=== PATIENT | male | born 1935 | race Caucasian/White ===

== ENCOUNTER 2016-08-04 06:14 | Observation (INO) ==
[2016-08-04] MEDS ORDERED: 0.9 % Sodium Chloride 1,000 ML IVC ONE (06:32)
--- NOTE | 2016-08-04 06:38 | Emergency Department Note ---
Disposition Clinical Impression: GI bleed Qualifiers: GI bleed type/associated pathology: unspecified gastrointestinal hemorrhage type Qualified Code(s): K92.2 - Gastrointestinal hemorrhage, unspecified Disposition: Admitted As Inpatient Condition: Good Time of Disposition: 11:15 General Adult HPI - General Chief complaint: ED GI Bleed Stated complaint: gi bleed Time Seen by Provider: 08/04/16 06:24 Source: patient, family Mode of arrival: ambulatory Limitations: no limitations Nursing Notes Reviewed: Yes Vital Signs Reviewed: Yes - History of Present Illness HPI Narrative: Patient is a 80-year-old male that arrives via squad from home with complaints of a bloody bowel movement followed by a bloody emesis approximately 2 hours prior to his arrival. He noticed his bowel movement was loose, and he describes the blood as well. He states he has had bright red blood per rectum in the past and this had not appear different. He mentioned his emesis also had a dark brown bloody appearance to it as well. He describes not feeling well prior to going to bed, and throughout the night. He also has some mild left lower quadrant tenderness which he started throughout the night as well. He mentions the had recently discontinued his warfarin due to an upcoming procedure on his prostate next week. Pt does mentioin h/o of previous GI bleed that was diagnosed as diverticulosis. He denies any melena, lightheadedness, chest pain, shortness of breath, recent travel, recent illness Pain Scale: 1 - Related Data Home Medications Medication Instructions Recorded Confirmed Digoxin [Lanoxin] 0.125 mg PO DAILY 04/23/15 08/04/16 Diltiazem HCl [Diltiazem ER] 180 mg PO BID 04/23/15 08/04/16 Ferrous Sulfate 325 mg PO BID 04/23/15 08/04/16 Finasteride [Proscar] 5 mg PO QAM 04/23/15 08/04/16 Furosemide [Lasix] 40 mg PO QAM 04/23/15 08/04/16 Simvastatin [Zocor] 20 mg PO QPM 04/23/15 08/04/16 Warfarin [Coumadin] 5 mg PO Q48H 04/23/15 08/04/16 Ascorbate Calcium [Vitamin C] 500 mg PO DAILY 12/04/15 08/04/16 Metoprolol [Lopressor] 50 mg PO BID 12/04/15 08/04/16 Multivit-Min/FA/Lycopen/Lutein 1 tab PO DAILY 12/04/15 08/04/16 [Adults 50+ Multivitamin Tablet] Vitamin E 1,000 unit PO DAILY 12/04/15 08/04/16 Warfarin [Coumadin] 7.5 mg PO Q48H 12/04/15 08/04/16 Losartan [Cozaar] 50 mg PO BID 08/04/16 08/04/16 hydrALAZINE [HydrALAZINE] 50 mg PO Q8HR 08/04/16 08/04/16 Allergies Allergy/AdvReac Type Severity Reaction Status Date / Time acetaminophen [From Vicodin] Allergy See Verified 08/04/16 06:16 Comments hydrocodone [From Vicodin] Allergy Rash Verified 08/04/16 06:16 macadamia nut oil Allergy Anaphylaxis Verified 08/04/16 06:16 All systems ED: reviewed and negative except as stated. Constitutional: Denies: fever, chills Eyes: Denies: vision change ENT ED: Denies: throat pain Cardiovascular: Denies: chest pain, palpitations, dyspnea on exertion Respiratory: Denies: cough, dyspnea, wheezes Gastrointestinal: Reports: as per HPI. Denies: melena Genitourinary: Denies: dysuria Musculoskeletal: Denies: back pain Integumentary: Denies: rash Neurological: Denies: headache Endocrine: Denies: fatigue Hematological/Lymphatic: Reports: as per HPI. Denies: lymphadenopathy Allergic/Immunologic: Denies: facial swelling Past Medical History - Past Medical History Medical history: Reports: atrial fibrillation, hypertension, myocardial infarction Surgical history: Reports: other Psychiatric history: Reports: no psych history - Social History Smoking Status: Never smoker Smokeless Tobacco Status: No Alcohol use: Reports: none Drug use: Reports: none Physical Exam - General Limitations: no limitations General appearance: alert, in no apparent distress - Head Head exam: normocephalic - Eye Eye exam: Present: EOMI. Absent: conjunctival injection - ENT ENT exam: mucous membranes moist - Neck Neck exam: Present: full ROM - Chest Chest inspection: Present: normal inspection, symmetric chest wall rise - Respiratory Respiratory exam: Present: normal lung sounds bilaterally. Absent: respiratory distress - Cardiovascular Cardiovascular exam: Present: tachycardia - Abdominal Exam Abdominal exam: Present: soft, tenderness Abdominal tenderness: Present: LLQ, mild - Extremities Exam Extremities exam: Present: normal inspection, full ROM, normal capillary refill - Neurological Exam Neurological exam: Present: alert, oriented X3 - Psychiatric Psychiatric exam: Present: normal affect, normal mood - Skin Skin exam: Present: warm, dry, intact, normal color, diaphoresis. Absent: rash , cyanosis Course Course Narrative: Patient is a 80-year-old male that arrives via squad from home with complaints of a bloody bowel movement followed by a bloody emesis approximately 2 hours prior to his arrival. He noticed his bowel movement was loose, and he describes the blood as well. He states he has had bright red blood per rectum in the past and this had not appear different. He mentioned his emesis also had a dark brown bloody appearance to it as well. He describes not feeling well prior to going to bed, and throughout the night. He also has some mild left lower quadrant tenderness which he started throughout the night as well. He mentions the had recently discontinued his warfarin due to an upcoming procedure on his prostate this week. He denies any lightheadedness, chest pain , shortness of breath, recent travel, recent illness. Patient seen and examined. He is in no acute distress, does not look toxic. He does appear slightly diaphoretic, but denies chest pain, sob, nausea. Slightly tachycardic, and hypertensive otherwise good vitals. Workup initiated. Fluids ordered. Patient declined analgesics. Rectal exam, no evidence of active bleeding. ALFONSO no bright red blood or melena. Fecal occult POC positive. - Reevaluation(s) Reevaluation #1: Patient's vitals remained stable. CT abdomen and pelvis negative for any acute intra-abdominal concerns. Patient does have elevated BNP, positive fecal guaiac. Stool sample appears watery, also dark black. We will contact hospitalist for admission. Time: 10:25 Reevaluation #2: Pt discussed with and accepted by hospitalist, Dr. Mancilla Time: 11:12 Vital Signs Temperature 97.6 F 08/04/16 06:26 Pulse Rate 113 08/04/16 06:26 Respiratory Rate 08/04/16 06:26 Blood Pressure 138/101 08/04/16 06:26 O2 Sat by Pulse Oximetry 97 08/04/16 06:26 Temperature 98.5 F 08/04/16 12:38 Pulse Rate 86 08/04/16 12:38 Respiratory Rate 18 08/04/16 12:38 Blood Pressure 118/69 08/04/16 12:38 O2 Sat by Pulse Oximetry 95 08/04/16 12:38 Oxygen Delivery Oxygen Delivery Room Air Medical Decision Making - MDM Narrative Medical decision making narrative: Chest X-Ray 08/04/16 06:32 IMPRESSION: Stable cardiomegaly. No acute pulmonary disease. D/ / Kyle Shah MD / Kyle Shah MD Interpreting Provider: Kyle Shah MD Abdomen/Pelvis CT 08/04/16 08:34 IMPRESSION: No acute process. D/ / Josiah Zelaya MD / Josiah Zelaya MD Interpreting Provider: Josiha Zelaya MD All Lab Results (24 Hours) 08/04/16 08/04/16 08/04/16 Range/Units 06:45 07:47 07:47 WBC 14.3 H (4.3-11.1) K/mcL RBC 4.98 (4.19-5.50) M/mcL Hgb 15.1 (12.9-16.9) g/dL Hct 46.8 (37.5-50.1) % MCV 94.0 (83.0-100.0) fL MCH 30.3 (28.0-33.3) pg MCHC 32.3 (31.6-35.5) g/dL RDW 12.8 (11.5-14.5) % Plt Count 181 (140-400) K/mcL MPV 12.7 H (9.4-12.4) fL Immature Gran % 0.9 (0-4) % Seg Neutrophils % 86.5 % Lymphocytes % 5.5 % Monocytes % 6.8 % Eosinophils % 0.1 % Basophils % 0.2 % Neutrophils # 12.4 H (1.6-8.9) K/mcL Lymphocytes # 0.8 (0.6-4.6) K/mcL Monocytes # 1.0 (0.0-1.3) K/mcL Eosinophils # 0.0 (0.0-0.6) K/mcL Basophils # 0.0 (0.0-0.2) K/mcL PT 14.9 H (9.4-12.1) Seconds INR 1.4 APTT 27.5 (26.0-36.0) Seconds Sodium (136-145) mEq/L Potassium (3.5-4.5) mEq/L Chloride (98-109) mEq/L Carbon Dioxide (19-29) mEq/L BUN (8-26) mg/dL Creatinine (0.72-1.25) mg/dL Est GFR ( Amer) (> 60) Est GFR (Non-Af Amer) (> 60) BUN/Creatinine Ratio (6-26) Glucose (70-99) mg/dL Calculated Osmolality (280-300) Calcium (8.6-10.8) mg/dL Total Bilirubin (0.2-1.2) mg/dL Direct Bilirubin (0.0-0.5) mg/dL Indirect Bilirubin (0.0-1.2) mg/dL AST (5-34) Units/L ALT (0-55) Units/L Alkaline Phosphatase (38-126) Units/L Troponin I (0-0.03) ng/mL Serum Total Protein (6.0-8.3) g/dL Albumin (3.5-5.0) g/dL Globulin (2.4-3.5) g/dL Albumin/Globulin Ratio (1.1-2.2) Lipase (8-78) Units/L Stool Occult Blood Positive A (Negative) Blood Type Antibody Screen 08/04/16 08/04/16 08/04/16 Range/Units 07:47 07:47 07:47 WBC (4.3-11.1) K/mcL RBC (4.19-5.50) M/mcL Hgb (12.9-16.9) g/dL Hct (37.5-50.1) % MCV (83.0-100.0) fL MCH (28.0-33.3) pg MCHC (31.6-35.5) g/dL RDW (11.5-14.5) % Plt Count (140-400) K/mcL MPV (9.4-12.4) fL Immature Gran % (0-4) % Seg Neutrophils % % Lymphocytes % % Monocytes % % Eosinophils % % Basophils % % Neutrophils # (1.6-8.9) K/mcL Lymphocytes # (0.6-4.6) K/mcL Monocytes # (0.0-1.3) K/mcL Eosinophils # (0.0-0.6) K/mcL Basophils # (0.0-0.2) K/mcL PT (9.4-12.1) Seconds INR APTT (26.0-36.0) Seconds Sodium 144 (136-145) mEq/L Potassium 4.7 H (3.5-4.5) mEq/L Chloride 111 H (98-109) mEq/L Carbon Dioxide 24 (19-29) mEq/L BUN 52 H (8-26) mg/dL Creatinine 1.12 (0.72-1.25) mg/dL Est GFR ( Amer) > 60 (> 60) Est GFR (Non-Af Amer) > 60 (> 60) BUN/Creatinine Ratio 46 H (6-26) Glucose 152 H (70-99) mg/dL Calculated Osmolality 315 H (280-300) Calcium 9.9 (8.6-10.8) mg/dL Total Bilirubin (0.2-1.2) mg/dL Direct Bilirubin (0.0-0.5) mg/dL Indirect Bilirubin (0.0-1.2) mg/dL AST (5-34) Units/L ALT (0-55) Units/L Alkaline Phosphatase (38-126) Units/L Troponin I 0.02 (0-0.03) ng/mL Serum Total Protein (6.0-8.3) g/dL Albumin (3.5-5.0) g/dL Globulin (2.4-3.5) g/dL Albumin/Globulin Ratio (1.1-2.2) Lipase 37 (8-78) Units/L Stool Occult Blood (Negative) Blood Type O POSITIVE Antibody Screen NEGATIVE 08/04/16 Range/Units 07:47 WBC (4.3-11.1) K/mcL RBC (4.19-5.50) M/mcL Hgb (12.9-16.9) g/dL Hct (37.5-50.1) % MCV (83.0-100.0) fL MCH (28.0-33.3) pg MCHC (31.6-35.5) g/dL RDW (11.5-14.5) % Plt Count (140-400) K/mcL MPV (9.4-12.4) fL Immature Gran % (0-4) % Seg Neutrophils % % Lymphocytes % % Monocytes % % Eosinophils % % Basophils % % Neutrophils # (1.6-8.9) K/mcL Lymphocytes # (0.6-4.6) K/mcL Monocytes # (0.0-1.3) K/mcL Eosinophils # (0.0-0.6) K/mcL Basophils # (0.0-0.2) K/mcL PT (9.4-12.1) Seconds INR APTT (26.0-36.0) Seconds Sodium (136-145) mEq/L Potassium (3.5-4.5) mEq/L Chloride (98-109) mEq/L Carbon Dioxide (19-29) mEq/L BUN (8-26) mg/dL Creatinine (0.72-1.25) mg/dL Est GFR ( Amer) (> 60) Est GFR (Non-Af Amer) (> 60) BUN/Creatinine Ratio (6-26) Glucose (70-99) mg/dL Calculated Osmolality (280-300) Calcium (8.6-10.8) mg/dL Total Bilirubin 2.2 H (0.2-1.2) mg/dL Direct Bilirubin 0.8 H (0.0-0.5) mg/dL Indirect Bilirubin 1.4 H (0.0-1.2) mg/dL AST 13 (5-34) Units/L ALT 22 (0-55) Units/L Alkaline Phosphatase 58 (38-126) Units/L Troponin I (0-0.03) ng/mL Serum Total Protein 6.5 (6.0-8.3) g/dL Albumin 3.5 (3.5-5.0) g/dL Globulin 3.0 (2.4-3.5) g/dL Albumin/Globulin Ratio 1.2 (1.1-2.2) Lipase (8-78) Units/L Stool Occult Blood (Negative) Blood Type Antibody Screen - Medical Records Medical records reviewed: Yes I reviewed the patient's medical records. - Lab Data Lab results reviewed: Yes I reviewed the patient's lab results. Result diagrams: 08/04/16 07:47 08/04/16 07:47 Lab Results 08/04/16 08/04/16 08/04/16 Range/Units 06:45 07:47 07:47 WBC 14.3 H (4.3-11.1) K/mcL RBC 4.98 (4.19-5.50) M/mcL Hgb 15.1 (12.9-16.9) g/dL Hct 46.8 (37.5-50.1) % MCV 94.0 (83.0-100.0) fL MCH 30.3 (28.0-33.3) pg MCHC 32.3 (31.6-35.5) g/dL RDW 12.8 (11.5-14.5) % Plt Count 181 (140-400) K/mcL MPV 12.7 H (9.4-12.4) fL Immature Gran % 0.9 (0-4) % Seg Neutrophils % 86.5 % Lymphocytes % 5.5 % Monocytes % 6.8 % Eosinophils % 0.1 % Basophils % 0.2 % Neutrophils # 12.4 H (1.6-8.9) K/mcL Lymphocytes # 0.8 (0.6-4.6) K/mcL Monocytes # 1.0 (0.0-1.3) K/mcL Eosinophils # 0.0 (0.0-0.6) K/mcL Basophils # 0.0 (0.0-0.2) K/mcL PT 14.9 H (9.4-12.1) Seconds INR 1.4 APTT 27.5 (26.0-36.0) Seconds Sodium (136-145) mEq/L Potassium (3.5-4.5) mEq/L Chloride (98-109) mEq/L Carbon Dioxide (19-29) mEq/L BUN (8-26) mg/dL Creatinine (0.72-1.25) mg/dL Est GFR ( Amer) (> 60) Est GFR (Non-Af Amer) (> 60) BUN/Creatinine Ratio (6-26) Glucose (70-99) mg/dL Calculated Osmolality (280-300) Calcium (8.6-10.8) mg/dL Total Bilirubin (0.2-1.2) mg/dL Direct Bilirubin (0.0-0.5) mg/dL Indirect Bilirubin (0.0-1.2) mg/dL AST (5-34) Units/L ALT (0-55) Units/L Alkaline Phosphatase (38-126) Units/L Troponin I (0-0.03) ng/mL Serum Total Protein (6.0-8.3) g/dL Albumin (3.5-5.0) g/dL Globulin (2.4-3.5) g/dL Albumin/Globulin Ratio (1.1-2.2) Lipase (8-78) Units/L Stool Occult Blood Positive A (Negative) Blood Type Antibody Screen 08/04/16 08/04/16 08/04/16 Range/Units 07:47 07:47 07:47 WBC (4.3-11.1) K/mcL RBC (4.19-5.50) M/mcL Hgb (12.9-16.9) g/dL Hct (37.5-50.1) % MCV (83.0-100.0) fL MCH (28.0-33.3) pg MCHC (31.6-35.5) g/dL RDW (11.5-14.5) % Plt Count (140-400) K/mcL MPV (9.4-12.4) fL Immature Gran % (0-4) % Seg Neutrophils % % Lymphocytes % % Monocytes % % Eosinophils % % Basophils % % Neutrophils # (1.6-8.9) K/mcL Lymphocytes # (0.6-4.6) K/mcL Monocytes # (0.0-1.3) K/mcL Eosinophils # (0.0-0.6) K/mcL Basophils # (0.0-0.2) K/mcL PT (9.4-12.1) Seconds INR APTT (26.0-36.0) Seconds Sodium 144 (136-145) mEq/L Potassium 4.7 H (3.5-4.5) mEq/L Chloride 111 H (98-109) mEq/L Carbon Dioxide 24 (19-29) mEq/L BUN 52 H (8-26) mg/dL Creatinine 1.12 (0.72-1.25) mg/dL Est GFR ( Amer) > 60 (> 60) Est GFR (Non-Af Amer) > 60 (> 60) BUN/Creatinine Ratio 46 H (6-26) Glucose 152 H (70-99) mg/dL Calculated Osmolality 315 H (280-300) Calcium 9.9 (8.6-10.8) mg/dL Total Bilirubin (0.2-1.2) mg/dL Direct Bilirubin (0.0-0.5) mg/dL Indirect Bilirubin (0.0-1.2) mg/dL AST (5-34) Units/L ALT (0-55) Units/L Alkaline Phosphatase (38-126) Units/L Troponin I 0.02 (0-0.03) ng/mL Serum Total Protein (6.0-8.3) g/dL Albumin (3.5-5.0) g/dL Globulin (2.4-3.5) g/dL Albumin/Globulin Ratio (1.1-2.2) Lipase 37 (8-78) Units/L Stool Occult Blood (Negative) Blood Type O POSITIVE Antibody Screen NEGATIVE 08/04/16 Range/Units 07:47 WBC (4.3-11.1) K/mcL RBC (4.19-5.50) M/mcL Hgb (12.9-16.9) g/dL Hct (37.5-50.1) % MCV (83.0-100.0) fL MCH (28.0-33.3) pg MCHC (31.6-35.5) g/dL RDW (11.5-14.5) % Plt Count (140-400) K/mcL MPV (9.4-12.4) fL Immature Gran % (0-4) % Seg Neutrophils % % Lymphocytes % % Monocytes % % Eosinophils % % Basophils % % Neutrophils # (1.6-8.9) K/mcL Lymphocytes # (0.6-4.6) K/mcL Monocytes # (0.0-1.3) K/mcL Eosinophils # (0.0-0.6) K/mcL Basophils # (0.0-0.2) K/mcL PT (9.4-12.1) Seconds INR APTT (26.0-36.0) Seconds Sodium (136-145) mEq/L Potassium (3.5-4.5) mEq/L Chloride (98-109) mEq/L Carbon Dioxide (19-29) mEq/L BUN (8-26) mg/dL Creatinine (0.72-1.25) mg/dL Est GFR ( Amer) (> 60) Est GFR (Non-Af Amer) (> 60) BUN/Creatinine Ratio (6-26) Glucose (70-99) mg/dL Calculated Osmolality (280-300) Calcium (8.6-10.8) mg/dL Total Bilirubin 2.2 H (0.2-1.2) mg/dL Direct Bilirubin 0.8 H (0.0-0.5) mg/dL Indirect Bilirubin 1.4 H (0.0-1.2) mg/dL AST 13 (5-34) Units/L ALT 22 (0-55) Units/L Alkaline Phosphatase 58 (38-126) Units/L Troponin I (0-0.03) ng/mL Serum Total Protein 6.5 (6.0-8.3) g/dL Albumin 3.5 (3.5-5.0) g/dL Globulin 3.0 (2.4-3.5) g/dL Albumin/Globulin Ratio 1.2 (1.1-2.2) Lipase (8-78) Units/L Stool Occult Blood (Negative) Blood Type Antibody Screen - Radiology Data Radiology results reviewed: Yes I reviewed the patient's radiology results. - EKG Data EKG #1 EKG attestation: Yes I reviewed and interpreted this EKG. EKG results narrative: EKG is interpreted by myself without benefit of formal cardiology interpretation showing atrial fibrillation with a heart rate of 105 bpm, right bundle branch block. This is compared to prior EKG from 12/04/2015 and there is no significant change from previous EKG. Attestation Statement - Attestation Attestation: I personally interviewed and examined this patient and my medical decision- making was reviewed with the MLPKristina, and I agree with the documented findings, disposition and treatment plan as described except to the extent set forth below. Patient is a pleasant 80-year-old white male with a history of diverticulosis who presents to the emergency department with a 24-hour history of gradually worsening lower abdominal cramping, associated with nausea vomiting and diarrhea. Patient states that his stool has been dark black in appearance and that he has had one episode of emesis at home that he felt was dark in color as well. Patient does take Coumadin for chronic A. fib, but states that he has been off his Coumadin since Saturday for a scheduled outpatient surgical procedure for his prostate on Saturday of this coming week. Patient has no prior history of GI bleeding. Patient has had one prior episode of diverticulitis, has a bright red blood per rectum. Patient denies any fevers or chills, no chest pain pressure or heaviness, no shortness of breath, no back or flank discomfort. Patient denies any urinary symptoms. I agree patient's physical exam findings as documented, on my assessment patient 's abdomen was soft mild tenderness to palpation in the suprapubic and left lower quadrants with no peritoneal signs, positive bowel sounds and no flank tenderness elicited on percussion. Patient's EKG was unchanged from prior. Patient's lab evaluation does show positive Hemoccult stool, H&H are stable on initial assessment, and remainder of lab evaluation is within normal limits. Patient does have an elevated BUNs which could suggest prior upper GI source. Patient has had no further vomiting while in the emergency department. Patient resting comfortably at this time with improved vital signs following IV fluid administration. CT abdomen and pelvis were negative for the presence of any bowel infection or perforation. Unclear as to the source of what appears to be an upper GI bleeding source. Patient complains of generalized weakness associated with these symptoms over the past 24 hours. This time we will plan to admit the patient for further evaluation of GI bleeding. Patient currently remains hemodynamically stable here in the ED.
[2016-08-04] MEDS ORDERED: *HR* Morphine 2 MG/ML SYRINGE IVP ONE (06:56)
[2016-08-04] MEDS ORDERED: Ondansetron 4 MG/2 ML VIAL IVP ONE (06:56)
[2016-08-04 08:02] LABS: INR 1.4; Prothrombin Time 14.9 Seconds (9.4-12.1)
[2016-08-04 08:04] LABS: Activated Partial Thrombo Time 27.5 Seconds (26.0-36.0)
[2016-08-04 08:13] LABS: Albumin 3.5 g/dL (3.5-5.0); Albumin/Globulin Ratio 1.2 (1.1-2.2); Bilirubin,Direct 0.8 mg/dL (0.0-0.5); Bilirubin,Indirect 1.4 mg/dL (0.0-1.2); Bilirubin,Total 2.2 mg/dL (0.2-1.2); Total Protein 6.5 g/dL (6.0-8.3)
[2016-08-04 08:15] LABS: BUN/Creatinine Ratio 46 (6-26); Basophils % 0.2 %; Blood Urea Nitrogen 52 mg/dL (8-26); Calcium 9.9 mg/dL (8.6-10.8); Carbon Dioxide 24 mEq/L (19-29); Chloride 111 mEq/L (98-109); Eosinophils % 0.1 %; Glucose 152 mg/dL (70-99); Hematocrit 46.8 % (37.5-50.1); Hemoglobin 15.1 g/dL (12.9-16.9); Immature Granulocytes % 0.9 % (0-4); Lipase 37 Units/L (8-78); Lymphocytes # 0.8 K/mcL (0.6-4.6); Lymphocytes % 5.5 %; Mean Corpuscular HGB Conc 32.3 g/dL (31.6-35.5); Mean Corpuscular Hemoglobin 30.3 pg (28.0-33.3); Mean Platelet Volume 12.7 fL (9.4-12.4); Monocytes % 6.8 %; Neutrophils # 12.4 K/mcL (1.6-8.9); Osmolality,Calculated 315 (280-300); Platelet Count 181 K/mcL (140-400); Potassium 4.7 mEq/L (3.5-4.5); Red Blood Count 4.98 M/mcL (4.19-5.50); Red Cell Distribution Width 12.8 % (11.5-14.5); Segmented Neutrophils % 86.5 %; Sodium 144 mEq/L (136-145); eGFR For African Americans > 60 (> 60); eGFR For Non-African Americans > 60 (> 60)
[2016-08-04] MEDS ORDERED: Pantoprazole 40 MG VIAL IVP ONE (10:23)
[2016-08-04] MEDS ORDERED: Naloxone 0.4 MG/ML INJ IVP PRN (12:24)
[2016-08-04] MEDS ORDERED: 0.9 % Sodium Chloride 1,000 ML IVC SCH (12:30)
--- NOTE | 2016-08-04 12:57 | Internal Med History&Physical ---
Date of Encounter: 08/04/16 Time of Encounter: 12:30 Assessment and Plan (1) GI bleed Current visit: Yes Status: Acute Patient with an episode of possible upper GI bleed with hematemesis and melena. Monitor blood counts. Keep on PPI. If hemoglobin levels dropped or patient continues to have GI bleed, we will consult environmental test technician doctor for GI bleed for urgent upper GI endoscopy. Monitor vital signs closely. Moderate risk for complications. Qualifiers: GI bleed type/associated pathology: melena Qualified Code(s): K92.1 - Melena (2) Atrial fibrillation Current visit: Yes Status: Chronic Rate control. On Coumadin. We will hold Coumadin for now due to GI bleed. Continue other medications for A. fib. Qualifiers: Atrial fibrillation type: paroxysmal Qualified Code(s): I48.0 - Paroxysmal atrial fibrillation (3) Hypertension Current visit: Yes Status: Chronic Monitor blood pressure. Continue home medications. Qualifiers: Hypertension type: essential hypertension Qualified Code(s): I10 - Essential (primary) hypertension (4) Obesity due to excess calories Current visit: Yes Status: Acute Recommend weight loss and diet changes. Qualifiers: Obesity severity: morbid Qualified Code(s): E66.01 - Morbid (severe) obesity due to excess calories Internal Medicine - H&P: HPI Chief complaint: Hematemesis and melena Admitted From: Emergency Dept Plans for Post Hospital Care: Home History of present illness: Mr. Rangel is a 80 year old male patient with a history of atrial fibrillation on chronic Coumadin therapy, myocardial infarction, essential hypertension presented to the ER after having an episode of hematemesis with dark colored blood along with abdominal pain and an episode of dark-colored blood in his stools. He says he had an episode of GI bleed 3 years back when he had bright red bleeding per rectum. At that time he underwent colonoscopy and was found to have diverticulosis. He said he received some plasma and then the bleeding stopped spontaneously and he has never had issues since then. He denies using any NSAIDs. Patient has stopped taking his Coumadin from yesterday due to impending surgery plan on his prostate on Saturday or Saturday. Past Med Surg Social Fam HX - Past Medical History Attestation: Yes The following information was validated with the patient. Source: patient Medical history: atrial fibrillation, hypertension, myocardial infarction Psychiatric history: no psych history - Past Surgical History Surgical History: other - Social History Smoking Status: Never smoker Smokeless Tobacco Status: No Alcohol use: none Drug use: none - Family History Father Living Status: Hx Family Cardiac Disorders: Yes Hx Family Respiratory Disorders: No Hx Family Cancer: No Hx Family GI Disorders: No Hx Family Endocrine Disorder: No Hx Family Neuromuscular Disorders: No Hx Family Neurologic Disorders: No Hx Family HEENT Disorders: No Hx Family Autoimmune Disorders: No Mother Living Status: Hx Family Cardiac Disorders: No Hx Family Respiratory Disorders: No Hx Family Cancer: No Hx Family GI Disorders: No Hx Family Endocrine Disorder: No Hx Family Neuromuscular Disorders: No Hx Family Neurologic Disorders: Yes (cva) Hx Family HEENT Disorders: No Hx Family Autoimmune Disorders: No Brother Living Status: Still Living Hx Family Cardiac Disorders: Yes ([place]) Hx Family Respiratory Disorders: No Hx Family Cancer: Yes (skin) Hx Family GI Disorders: No Hx Family Endocrine Disorder: No Hx Family Neuromuscular Disorders: No Hx Family Neurologic Disorders: No Hx Family HEENT Disorders: No Hx Family Autoimmune Disorders: No Son Living Status: Still Living Hx Family Cardiac Disorders: Yes Hx Family Respiratory Disorders: No Hx Family Cancer: No Hx Family GI Disorders: No Hx Family Endocrine Disorder: No Hx Family Neuromuscular Disorders: No Hx Family Neurologic Disorders: No Hx Family HEENT Disorders: No Hx Family Autoimmune Disorders: No Internal Medicine - H&P: Meds Digoxin [Lanoxin] 0.125 mg PO DAILY 04/23/15 [History] Diltiazem HCl [Diltiazem ER] 180 mg PO BID 04/23/15 [History] Ferrous Sulfate 325 mg PO BID 04/23/15 [History] Finasteride [Proscar] 5 mg PO QAM 04/23/15 [History] Furosemide [Lasix] 40 mg PO QAM 04/23/15 [History] Simvastatin [Zocor] 20 mg PO QPM 04/23/15 [History] Warfarin [Coumadin] 5 mg PO Q48H 04/23/15 [History] Ascorbate Calcium [Vitamin C] 500 mg PO DAILY 12/04/15 [History] Metoprolol [Lopressor] 50 mg PO BID 12/04/15 [History] Multivit-Min/FA/Lycopen/Lutein [Adults 50+ Multivitamin Tablet] 1 tab PO DAILY 12/04/15 [History] Vitamin E 1,000 unit PO DAILY 12/04/15 [History] Warfarin [Coumadin] 7.5 mg PO Q48H 12/04/15 [History] Losartan [Cozaar] 50 mg PO BID 08/04/16 [History] hydrALAZINE [HydrALAZINE] 50 mg PO Q8HR 08/04/16 [History] Allergies acetaminophen [From Vicodin] Allergy (Verified 08/04/16 06:16) See Comments allergy to Vicodin - not acetaminophen hydrocodone [From Vicodin] Allergy (Verified 08/04/16 06:16) Rash macadamia nut oil Allergy (Verified 08/04/16 06:16) Anaphylaxis All Systems PM: A 10-system review of systems was performed and is negative for pertinent findings except as documented above in the HPI. - Constitutional Constitutional: no chills, no fever(s), no night sweats - EENT Eyes: no change in vision, no discharge, no pain, no photophobia Ears: no ear discharge, no ear pain, no tinnitus Nose, mouth and throat: no dysphagia, no nasal discharge, no neck pain, no sore throat - Cardiovascular Cardiovascular ROS IM: no chest pain, no diaphoresis, no dyspnea, no lightheadedness, no palpitations, no syncope - Respiratory Respiratory: no cough, no dyspnea, no wheezing, no excessive phlegm production - Gastrointestinal Gastrointestinal: abdominal pain, hematemesis, melena, nausea, vomiting, no diarrhea - Musculoskeletal Musculoskeletal ROS IM: no numbness, no tingling - Integumentary Integumentary IM: no rash, no unusual bruising - Neurological Neurological ROS: no confusion, no convulsions, no focal weakness, no numbness, no tingling, no tremor(s) - Hematologic/Lymphatic Hematologic/Lymphatic: no easy bruising - Constitutional Vitals: Temp Pulse Resp BP Pulse Ox 98.5 F 86 18 118/69 95 08/04/16 12:38 08/04/16 12:38 08/04/16 12:38 08/04/16 12:38 08/04/16 12:38 General appearance: Present: cooperative, A&O X 3, no acute distress, obese, answers questions appropriately - Neck Neck exam general surgery: Present: supple, trachea midline. Absent: lymphadenopathy - Respiratory Respiratory exam: Present: CTAB. Absent: accessory muscle use, rales, rhonchi, wheezes - Cardiovascular Cardiovascular exam: Present: RRR, +S1, +S2. Absent: diastolic murmur, gallop, rubs, systolic murmur - GI/Abdominal GI/Abdominal exam: Present: normal bowel sounds, soft, no peritoneal signs. Absent: distended, tenderness - Extremities Exam Extremities exam: Present: warm, radial pulses palpable and symetrical. Absent : calf tenderness, cyanotic, pedal edema - Neurological Exam Neurological exam: Present: alert, CN II-XII intact, oriented X3, no focal deficits. Absent: facial droop, speech deficit - Skin Skin exam: Present: dry, intact Internal Med - H&P Results - Labs CBC & Chem 7: 08/04/16 07:47 08/04/16 07:47
[2016-08-04] MEDS: D5% in 0.45% NACL 1,000 ML IVC SCH (18:11)
[2016-08-04] MEDS: hydrALAZINE 25 MG TABLET PO SCH (18:11)
[2016-08-04] MEDS: Pantoprazole 40 MG VIAL IVP SCH (18:11)
[2016-08-04 18:12] LABS: Hematocrit 43.5 % (37.5-50.1); Hemoglobin 14.2 g/dL (12.9-16.9)
[2016-08-04] MEDS: Diltiazem SR (12hr) 90 MG CAPSULE PO SCH (22:37)
[2016-08-05 01:03] LABS: Hematocrit 40.1 % (37.5-50.1)
[2016-08-05] MEDS: hydrALAZINE 25 MG TABLET PO SCH ×3 (01:37→17:04)
[2016-08-05 01:50] LABS: Adenovirus F 40/41 PCR Not detected (Not detect); Astrovirus PCR Not detected (Not detect); C.difficile Toxin A/B by PCR See reflex test (Not detect); Campylobacter by PCR Not detected (Not detect); Cryptosporidium by PCR Not detected (Not detect); Cyclospora cayetanensis PCR Not detected (Not detect); E. coli O157 by PCR Not detected (Not detect); Entamoeba histolytica PCR Not detected (Not detect); Enteroaggregative E.coli(EAEC) Not detected (Not detect); Enteropathogenic E.coli(EPEC) Not detected (Not detect); Enterotoxigenic E.coli (ETEC) Not detected (Not detect); Giardia lamblia PCR Not detected (Not detect); Norovirus GI/GII PCR Not detected (Not detect); Plesiomonas shigelloides PCR Not detected (Not detect); Rotavirus A PCR Not detected (Not detect); Salmonella PCR Not detected (Not detect); Sapovirus PCR Not detected (Not detect); Shig/EnteroinvasiveE coli EIEC Not detected (Not detect); Shigalike tox-prod E coli STEC Not detected (Not detect); Vibrio PCR Not detected (Not detect); Vibrio cholerae PCR Not detected (Not detect); Yersinia enterocolitica PCR Not detected (Not detect)
[2016-08-05 03:36] LABS: Hematocrit 41.1 % (37.5-50.1); Hemoglobin 13.3 g/dL (12.9-16.9); Mean Corpuscular HGB Conc 32.4 g/dL (31.6-35.5); Mean Corpuscular Volume 95.8 fL (83.0-100.0); Mean Platelet Volume 13.1 fL (9.4-12.4); Platelet Count 162 K/mcL (140-400); Red Blood Count 4.29 M/mcL (4.19-5.50); Red Cell Distribution Width 13.3 % (11.5-14.5); Segmented Neutrophils % 73.6 %
[2016-08-05 03:37] LABS: Basophils % 0.2 %; Eosinophils # 0.2 K/mcL (0.0-0.6); Eosinophils % 1.2 %; Immature Granulocytes % 0.7 % (0-4); Lymphocytes # 1.8 K/mcL (0.6-4.6); Lymphocytes % 14.8 %; Monocytes # 1.1 K/mcL (0.0-1.3); Monocytes % 9.5 %; Neutrophils # 8.8 K/mcL (1.6-8.9)
[2016-08-05 03:40] LABS: BUN/Creatinine Ratio 35 (6-26); Calcium 8.8 mg/dL (8.6-10.8); Carbon Dioxide 21 mEq/L (19-29); Chloride 115 mEq/L (98-109); Glucose 120 mg/dL (70-99); Osmolality,Calculated 309 (280-300); Sodium 145 mEq/L (136-145); eGFR For African Americans > 60 (> 60); eGFR For Non-African Americans > 60 (> 60)
[2016-08-05 03:41] LABS: Blood Urea Nitrogen 34 mg/dL (8-26)
[2016-08-05] MEDS: MetroNIDAZOLE 500 MG/100 ML 500 MG/100 ML BAG IVPB SCH ×3 (05:35→17:02)
[2016-08-05] MEDS: D5% in 0.45% NACL 1,000 ML IVC SCH ×2 (05:35→22:50)
[2016-08-05] MEDS: Pantoprazole 40 MG VIAL IVP SCH ×2 (05:36→17:03)
[2016-08-05] MEDS: Acetaminophen 325 MG TABLET PO PRN ×2 (05:37→12:29)
[2016-08-05] MEDS: Diltiazem SR (12hr) 90 MG CAPSULE PO SCH ×2 (08:05→21:29)
[2016-08-05] MEDS: *HR* Digoxin 0.125 MG TABLET PO SCH (08:06)
[2016-08-05] MEDS: Furosemide 40 MG TABLET PO SCH (08:06)
[2016-08-05] MEDS: Finasteride 5 MG TABLET PO SCH (08:07)
--- NOTE | 2016-08-05 09:42 | Electrocardiograph Report ---
[place] [id number] Test Date: 2016-08-04 Pat Name: Torrey Rangel Department: 103 Room: 3A23 Gender: M Paper Roller: : 1935 Requested By: Larry Callahan Order Number: [id number] Reading MD: Oralia Marin Measurements Intervals [place] Rate: 105 P: WI: 0 QRS: 91 QRSD: 150 T: 16 QT: 318 QTc: 379 Interpretive Statements ATRIAL FIBRILLATION WITH RAPID VENTRICULAR RESPONSE RIGHT BUNDLE BRANCH BLOCK Electronically Signed On 08-05-2016 9:40:47 EDT by Oralia Marin
--- NOTE | 2016-08-05 18:32 | Internal Med Progress Note ---
Date of Encounter: 08/05/16 Time of Encounter: 18:30 - Assessment and plan (1) Hypertension Current Visit: Yes Status: Chronic Qualifiers: Hypertension type: essential hypertension Qualified Code(s): I10 - Essential (primary) hypertension (2) Atrial fibrillation Current Visit: Yes Status: Chronic Qualifiers: Atrial fibrillation type: paroxysmal Qualified Code(s): I48.0 - Paroxysmal atrial fibrillation (3) BPH (benign prostatic hypertrophy) Current Visit: Yes Status: Chronic Qualifiers: Prostatic enlargement morphology: unspecified morphology Lower urinary tract symptom presence: symptoms absent Qualified Code(s): N40.0 - Benign prostatic hyperplasia without lower urinary tract symptoms (4) GI bleed Current Visit: No Status: Acute Qualifiers: GI bleed type/associated pathology: melena Qualified Code(s): K92.1 - Melena - Subjective Interval history: Patient is 80-year-old admitted with single episode of melena and hemoglobin is stable. He denies any complaints. She will be started on clear liquids however Alberto - Constitutional Vitals: Temp Pulse Resp BP Pulse Ox 97.5 F L 64 18 135/86 97 08/05/16 14:42 08/05/16 14:42 08/05/16 14:42 08/05/16 14:42 08/05/16 14:42 General appearance: Present: cooperative, A&O X 3, no acute distress, obese, answers questions appropriately - Head Head exam: Present: atraumatic, normocephalic - Eye Eye exam: Present: PERRL, conjuntiva pink, sclera anicteric Pupils: Present: PERRL - Neck Neck exam general surgery: Present: supple, trachea midline. Absent: lymphadenopathy - Respiratory Respiratory exam: Present: CTAB. Absent: accessory muscle use, rales, rhonchi, wheezes - Cardiovascular Cardiovascular exam: Present: RRR, +S1, +S2. Absent: diastolic murmur, gallop, rubs, systolic murmur - GI/Abdominal GI/Abdominal exam: Present: normal bowel sounds, soft, no peritoneal signs. Absent: distended, tenderness - Extremities Exam Extremities exam: Present: warm, radial pulses palpable and symetrical. Absent : calf tenderness, cyanotic, pedal edema - Neurological Exam Neurological exam: Present: CN II-XII intact, oriented X3, no focal deficits. Absent: pronater drift, facial droop, speech deficit - Skin Skin exam: Present: dry, intact Internal Medicine: Result - Labs CBC & Chem 7: 08/05/16 02:24 08/05/16 02:24 Labs: Short CBC 08/05/16 08/05/16 Range/Units 00:41 02:24 WBC 12.0 H (4.3-11.1) K/mcL Hgb 13.0 13.3 (12.9-16.9) g/dL Hct 40.1 41.1 (37.5-50.1) % Plt Count 162 (140-400) K/mcL Neutrophils # 8.8 (1.6-8.9) K/mcL BMP 08/05/16 02:24 Sodium 145 Potassium 4.0 Chloride 115 H Carbon Dioxide 21 BUN 34 H D Creatinine 0.96 Glucose 120 H Calcium 8.8 - ABG Interpretation ABG results: PT/INR, D-dimer PT 14.9 Seconds (9.4-12.1) H 08/04/16 07:47 Consult Discharge Plan - Plan Referrals: Tawn Luong Jr, MD [Primary Care Provider] -
[2016-08-06] MEDS: MetroNIDAZOLE 500 MG/100 ML 500 MG/100 ML BAG IVPB SCH ×3 (00:45→14:43)
[2016-08-06] MEDS: hydrALAZINE 25 MG TABLET PO SCH ×2 (00:45→08:26)
[2016-08-06] MEDS: Pantoprazole 40 MG VIAL IVP SCH (06:13)
[2016-08-06] MEDS: Furosemide 40 MG TABLET PO SCH (08:26)
[2016-08-06] MEDS: Diltiazem SR (12hr) 90 MG CAPSULE PO SCH (08:26)
[2016-08-06] MEDS: *HR* Digoxin 0.125 MG TABLET PO SCH (08:26)
[2016-08-06] MEDS: Finasteride 5 MG TABLET PO SCH (08:26)
--- NOTE | 2016-08-06 09:16 | Discharge Summary ---
Date of Encounter: 08/06/16 Time of Encounter: 09:13 - Discharge Diagnosis (1) Hypertension Priority: Secondary Status: Chronic Qualifiers: Hypertension type: essential hypertension Qualified Code(s): I10 - Essential (primary) hypertension (2) Atrial fibrillation Priority: Secondary Status: Chronic Qualifiers: Atrial fibrillation type: paroxysmal Qualified Code(s): I48.0 - Paroxysmal atrial fibrillation (3) BPH (benign prostatic hypertrophy) Priority: Secondary Status: Chronic Qualifiers: Prostatic enlargement morphology: unspecified morphology Lower urinary tract symptom presence: symptoms absent Qualified Code(s): N40.0 - Benign prostatic hyperplasia without lower urinary tract symptoms (4) GI bleed Priority: Primary Status: Acute Qualifiers: GI bleed type/associated pathology: melena Qualified Code(s): K92.1 - Melena (5) Chronic atrial fibrillation Priority: Secondary Status: Acute - Discharge Medications Prescriptions: Omeprazole [PriLOSEC] 20 mg PO BIDAC #60 cap Home Medications: Digoxin [Lanoxin] 0.125 mg PO DAILY 04/23/15 [History] Diltiazem HCl [Diltiazem ER] 180 mg PO BID 04/23/15 [History] Ferrous Sulfate 325 mg PO BID 04/23/15 [History] Finasteride [Proscar] 5 mg PO QAM 04/23/15 [History] Furosemide [Lasix] 40 mg PO QAM 04/23/15 [History] Simvastatin [Zocor] 20 mg PO QPM 04/23/15 [History] Warfarin [Coumadin] 5 mg PO Q48H 04/23/15 [History] Ascorbate Calcium [Vitamin C] 500 mg PO DAILY 12/04/15 [History] Metoprolol [Lopressor] 50 mg PO BID 12/04/15 [History] Multivit-Min/FA/Lycopen/Lutein [Adults 50+ Multivitamin Tablet] 1 tab PO DAILY 12/04/15 [History] Vitamin E 1,000 unit PO DAILY 12/04/15 [History] Warfarin [Coumadin] 7.5 mg PO Q48H 12/04/15 [History] Losartan [Cozaar] 50 mg PO BID 08/04/16 [History] hydrALAZINE [HydrALAZINE] 50 mg PO Q8HR 08/04/16 [History] Acetaminophen [Tylenol] 650 mg PO Q6HR PRN #0 tablet 08/06/16 [Rx] Omeprazole [PriLOSEC] 20 mg PO BIDAC #60 cap 08/06/16 [Rx] Allergies/Adverse Reactions: Allergies hydrocodone [From Vicodin] Allergy (Verified 08/04/16 06:16) Rash macadamia nut oil Allergy (Verified 08/04/16 06:16) Anaphylaxis Date of admission: 08/04/16 11:19 Primary care physician: Twan Luong Jr, MD Consults: 08/05/16 18:35 Consult to Gastroenterology [CONS] Routine Consulting Provider: Elisaology Penny Reason for Consult: upper GIB Time Notified: 18:36 Call Completed: Yes Discharging clinician: Chacha Parisi Anticipated date of discharge: 08/06/16 - Patient Status Disposition: Home, Self-Care Condition: Good Overall status at discharge: patient is progressing back to baseline - Discharge Instructions Follow Up With: Twan Luong Jr, MD [Primary Care Provider] - - Diet and Activity Activity: increase activity as tolerated Diet: advance to your usual diet Interval History: Mr. Rangel is a 80 year old male patient with a history of atrial fibrillation on chronic Coumadin therapy, myocardial infarction, essential hypertension presented to the ER after having an episode of hematemesis with dark colored blood along with abdominal pain and an episode of dark-colored blood in his stools. He says he had an episode of GI bleed 3 years back when he had bright red bleeding per rectum. At that time he underwent colonoscopy and was found to have diverticulosis. He said he received some plasma and then the bleeding stopped spontaneously and he has never had issues since then. He denies using any NSAIDs. But he is on Coumadin which as noted above has been a stopper day before admission. 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 as his hemoglobin remained quite stable and melena and coffee-ground vomiting was only one time event. Prilosec 20 mg by mouth twice a day added. His Coumadin is on hold due to pending prostate surgery. General follow up with family doctor who will advise him further. Hospital course: Mr. Rangel is a 80 year old male - Time Spent with Patient Total time spent providing and/or coordinating discharge services: Greater than 30 minutes - Constitutional Vitals: Temp Pulse Resp BP Pulse Ox 98.0 F 71 16 123/82 97 08/06/16 06:53 08/06/16 06:53 08/06/16 06:53 08/06/16 06:53 08/06/16 06:53 General appearance: Present: cooperative, A&O X 3, no acute distress, obese, answers questions appropriately - Head Head exam: Present: atraumatic, normocephalic - Eye Eye exam: Present: PERRL, conjuntiva pink, sclera anicteric Pupils: Present: PERRL - Neck Neck exam general surgery: Present: supple, trachea midline. Absent: lymphadenopathy - Respiratory Respiratory exam: Present: CTAB. Absent: accessory muscle use, rales, rhonchi, wheezes - Cardiovascular Cardiovascular exam: Present: RRR, +S1, +S2. Absent: diastolic murmur, gallop, rubs, systolic murmur - GI/Abdominal GI/Abdominal exam: Present: normal bowel sounds, soft, no peritoneal signs. Absent: distended, tenderness - Extremities Exam Extremities exam: Present: warm, radial pulses palpable and symetrical. Absent : calf tenderness, cyanotic, pedal edema - Neurological Exam Neurological exam: Present: CN II-XII intact, oriented X3, no focal deficits. Absent: pronater drift, facial droop, speech deficit - Skin Skin exam: Present: dry, intact - VTE Documentation of Mechanical Device: Intermittent pneumatic compression device
[2016-08-06 09:56] LABS: Hematocrit 38.1 % (37.5-50.1); Hemoglobin 12.8 g/dL (12.9-16.9)
--- NOTE | 2016-08-06 13:28 | Anesthesia Evaluation PreOp ---
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: Denies Any Significant HX Other Medical History: Denies Any Significant HX Anesthesia History: No Prior Anesthetic Complications Alcohol Use: none Drug use: none Medications and Allergies Digoxin [Lanoxin] 0.125 mg PO DAILY 04/23/15 [History] Diltiazem HCl [Diltiazem ER] 180 mg PO BID 04/23/15 [History] Ferrous Sulfate 325 mg PO BID 04/23/15 [History] Finasteride [Proscar] 5 mg PO QAM 04/23/15 [History] Furosemide [Lasix] 40 mg PO QAM 04/23/15 [History] Simvastatin [Zocor] 20 mg PO QPM 04/23/15 [History] Warfarin [Coumadin] 5 mg PO Q48H 04/23/15 [History] Ascorbate Calcium [Vitamin C] 500 mg PO DAILY 12/04/15 [History] Metoprolol [Lopressor] 50 mg PO BID 12/04/15 [History] Multivit-Min/FA/Lycopen/Lutein [Adults 50+ Multivitamin Tablet] 1 tab PO DAILY 12/04/15 [History] Vitamin E 1,000 unit PO DAILY 12/04/15 [History] Warfarin [Coumadin] 7.5 mg PO Q48H 12/04/15 [History] Losartan [Cozaar] 50 mg PO BID 08/04/16 [History] hydrALAZINE [HydrALAZINE] 50 mg PO Q8HR 08/04/16 [History] Acetaminophen [Tylenol] 650 mg PO Q6HR PRN #0 tablet 08/06/16 [Rx] Omeprazole [PriLOSEC] 20 mg PO BIDAC #60 cap 08/06/16 [Rx] Allergies hydrocodone [From Vicodin] Allergy (Verified 08/04/16 06:16) Rash macadamia nut oil Allergy (Verified 08/04/16 06:16) Anaphylaxis - Meds/Allergy Pre-op Review Medications Reviewed: Yes Allergies Reviewed: Yes Beta Blockers on Current Med List: Yes If Beta Blockers taken, Date/Time (Last Dose taken): metoprolol 08-06-16 at 8:26 Anesthesia Results - Labs 08/06/16 09:31 08/05/16 02:24 - Imaging EKG: report reviewed, image reviewed (A fib RVR; RBBB) Anesthesia Exam Last Vital Signs Temp 98.5 F 08/06/16 13:15 Pulse 60 08/06/16 13:15 Resp 18 08/06/16 13:15 BP 119/66 08/06/16 13:15 Pulse Ox 95 08/06/16 13:15 Weight: 110 kg NPO (# of Hours): >> 8 hrs - HEENT Pupil (Motor): Pupils equal, EOMI Mallampati: III Teeth: Edentulous Oral Opening: Greater than 3 - PRODUCTION MATERIAL HANDLER LOC: Oriented [employer]ODUCTION MATERIAL HANDLER Motor: Normal RUE, Normal LUE, Normal RLE, Normal LLE, Normal Face - Cardiac Rhythm: Irregular Murmur: None - Pulmonary Breath Sounds: bilateral Clear Respiratory Effort: Symmetrical Anesthesia Assess/Plan ASA Score: 3 Modified Terri Scale for Level of Consciousness: Cooperative, oriented, and tranquil Anesthetic Plan: MAC Monitoring Plan: Standard Monitors Recovery Plan: PACU
[2016-08-06] MEDS ORDERED: Tetracaine/Benzocaine/Butamben 200MG/SPRAY (100SPY/BOT) MM ONE (14:05)
[2016-08-06 14:48] VITALS: BP 134/80
--- NOTE | 2016-08-06 14:52 | Gastroenterology Consult Note ---
<LathamValdez Murray - Last Filed: 08/06/16 14:54> Date of Encounter: 08/06/16 Time of Encounter: 12:05 - Assessment and plan (1) GI bleed Current Visit: No Status: Acute Assessment and plan: Hgb on admission 15.1 and this AM Hgb 12.8. EGD today to r/o esophagitis, gastritis, duodenitis, PUD, MW tear, or AVM. Continue PPI. Continue to monitor CBC. Qualifiers: GI bleed type/associated pathology: melena Qualified Code(s): K92.1 - Melena (2) Chronic atrial fibrillation Current Visit: Yes Status: Acute - Time Spent With Patient Total time spent is greater than 50% in coordination of care (as documented) at patient's floor/unit and/or counseling patient: GI History of Present Illness - Data of Consult Patient: new to practice Consult date: 08/06/16 Requesting Physician: Chacha Parisi MD - Consult Narrative Reason for consult: Upper GI bleed History of present illness: Mr. Rangel is a 80 year old male with PMHx of Afib-on Coumadin, HTN, [place] who presented to the ED after having an episode of hematemesis with dark colored blood along with abdominal pain and an episode of dark-colored blood in his stools. He says he had an episode of GI bleed 3 years back when he had bright red bleeding per rectum. At that time he underwent colonoscopy and was found to have diverticulosis. He denies fever, chills, chest pain, SOB. Colon colonoscopy 03/01/2014 Dr. Logan: Diverticulosis, large hepatic flexure tubular adenoma, rectal tubular adenoma EGD 06/02/2009 Dr. Logan: Gastritis NSAIDs: None Anticoagulation: Coumadin Past Med Surg Social Fam HX - Past Medical History Medical history: atrial fibrillation, hypertension, myocardial infarction Psychiatric history: no psych history - Past Surgical History Surgical History: other - Social History Smoking Status: Never smoker Smokeless Tobacco Status: No Alcohol use: none Drug use: none - Family History Father Living Status: Hx Family Cardiac Disorders: Yes Hx Family Respiratory Disorders: No Hx Family Cancer: No Hx Family GI Disorders: No Hx Family Endocrine Disorder: No Hx Family Neuromuscular Disorders: No Hx Family Neurologic Disorders: No Hx Family HEENT Disorders: No Hx Family Autoimmune Disorders: No Mother Living Status: Hx Family Cardiac Disorders: No Hx Family Respiratory Disorders: No Hx Family Cancer: No Hx Family GI Disorders: No Hx Family Endocrine Disorder: No Hx Family Neuromuscular Disorders: No Hx Family Neurologic Disorders: Yes (cva) Hx Family HEENT Disorders: No Hx Family Autoimmune Disorders: No Brother Living Status: Still Living Hx Family Cardiac Disorders: Yes ([place]) Hx Family Respiratory Disorders: No Hx Family Cancer: Yes (skin) Hx Family GI Disorders: No Hx Family Endocrine Disorder: No Hx Family Neuromuscular Disorders: No Hx Family Neurologic Disorders: No Hx Family HEENT Disorders: No Hx Family Autoimmune Disorders: No Son Living Status: Still Living Hx Family Cardiac Disorders: Yes Hx Family Respiratory Disorders: No Hx Family Cancer: No Hx Family GI Disorders: No Hx Family Endocrine Disorder: No Hx Family Neuromuscular Disorders: No Hx Family Neurologic Disorders: No Hx Family HEENT Disorders: No Hx Family Autoimmune Disorders: No - Gastrointestinal Gastrointestinal: Present: as per HPI - Constitutional Constitutional: as per HPI - EENT Eyes: as per HPI Ears: Present: as per HPI Nose, mouth and throat: Present: as per HPI - Cardiovascular Cardiovascular ROS: Present: as per HPI - Respiratory Respiratory IM: Present: as per HPI - Genitourinary Genitourinary: Absent: change in color, Urinary frequency - Neurological ROS Neurological GI: Present: as per HPI - Hematologic/Lymphatic Hematologic/Lymphatic pediatric: Present: as per HPI - Musculoskeletal Musculoskeletal ROS GI: Present: as per HPI - Integumentary Integumentary GI: Present: as per HPI - Psychiatric ROS Psychiatric GI: Present: as per HPI - Endocrine Endocrine IM: Present: as per HPI - Constitutional Vitals: Temp Pulse Resp BP Pulse Ox 97.9 F 75 18 134/80 98 08/06/16 14:46 08/06/16 14:46 08/06/16 14:46 08/06/16 14:46 08/06/16 14:46 General appearance: Present: cooperative, A&O X 3, no acute distress, answers questions appropriately - Head Head exam: Present: atraumatic, normocephalic - Eye Eye exam: Present: normal appearance, sclera anicteric - ENT ENT exam: Present: mucous membranes dry - Neck Neck exam general surgery: Present: normal inspection, trachea midline - Respiratory Respiratory exam: Present: CTAB - Cardiovascular Cardiovascular exam: Present: RRR, +S1, +S2 - GI/Abdominal GI/Abdominal exam: Present: soft, no peritoneal signs. Absent: distended, firm , guarding, tenderness - Rectal Rectal exam: Present: deferred - Extremities Exam Extremities exam: Present: warm - Neurological Exam Neurological exam: Present: no focal deficits - Psychiatric Psychiatric exam: Present: normal affect, normal mood - Skin Skin exam: Present: dry, intact, normal color, warm Results - Labs CBC & Chem 7: 08/06/16 09:31 08/05/16 02:24 Labs: Last Result Calcium 8.8 mg/dL (8.6-10.8) 08/05/16 02:24 Troponin I 0.02 ng/mL (0-0.03) 08/04/16 07:47 Stool Occult Blood Positive (Negative) A 08/04/16 06:45 Entire Visit Hgb 12.8 g/dL (12.9-16.9) L 08/06/16 09:31 Hct 38.1 % (37.5-50.1) 08/06/16 09:31 PT 14.9 Seconds (9.4-12.1) H 08/04/16 07:47 Total Bilirubin 2.2 mg/dL (0.2-1.2) H 08/04/16 07:47 AST 13 Units/L (5-34) 08/04/16 07:47 ALT 22 Units/L (0-55) 08/04/16 07:47 Lipase 37 Units/L (8-78) 08/04/16 07:47 - ABG ABG results: PT/INR, D-dimer PT 14.9 Seconds (9.4-12.1) H 08/04/16 07:47 Consult Discharge Plan - Plan Referrals: Odalys Forrest DO [Partnered Physician] - 08/17/16 9:30 am Prescriptions: Omeprazole [PriLOSEC] 20 mg PO BIDAC #60 cap <Janae Nunez - Last Filed: 08/06/16 16:59> Date of Encounter: 08/06/16 Time of Encounter: 14:00 - Time Spent With Patient Total time spent is greater than 50% in coordination of care (as documented) at patient's floor/unit and/or counseling patient: GI History of Present Illness - Data of Consult Requesting Physician: Chacha Parisi MD - Consult Narrative History of present illness: Mr. Rangel is a 80 year old male - Constitutional Vitals: Temp Pulse Resp BP Pulse Ox 97.9 F 75 18 134/80 98 08/06/16 14:46 08/06/16 14:46 08/06/16 14:46 08/06/16 14:46 08/06/16 14:46 Results - Labs CBC & Chem 7: 08/06/16 14:58 08/05/16 02:24 Labs: Last Result Calcium 8.8 mg/dL (8.6-10.8) 08/05/16 02:24 Troponin I 0.02 ng/mL (0-0.03) 08/04/16 07:47 Stool Occult Blood Positive (Negative) A 08/04/16 06:45 Entire Visit Hgb 13.0 g/dL (12.9-16.9) 08/06/16 14:58 Hct 39.6 % (37.5-50.1) 08/06/16 14:58 PT 14.9 Seconds (9.4-12.1) H 08/04/16 07:47 Total Bilirubin 2.2 mg/dL (0.2-1.2) H 08/04/16 07:47 AST 13 Units/L (5-34) 08/04/16 07:47 ALT 22 Units/L (0-55) 08/04/16 07:47 Lipase 37 Units/L (8-78) 08/04/16 07:47 - ABG ABG results: PT/INR, D-dimer PT 14.9 Seconds (9.4-12.1) H 08/04/16 07:47 - Attending Attestation I examined this patient and my medical decision-making was reviewed with the DIRECTOR OF IT OPERATIONS/PA/Advanced Practice Nurse/Resident Physician. I agree with the documented findings, disposition and treatment plan as described except to the extent set forth below.
[2016-08-06 15:16] LABS: Hematocrit 39.6 % (37.5-50.1)
== END 2016-08-06 18:18 | disposition home or self-care (01) ==
LOC: EMEROO 06:14 → 3ANU 06:14
PROVIDERS: ADMIT Internal Medicine; ATTEND Internal Medicine
PROC: ENDOEBX (2016-08-06 13:30)

== ENCOUNTER 2016-12-15 06:42 | Observation (INO) ==
[2016-12-15] MEDS ORDERED: Aspirin 81 MG TAB.CHEW PO ONE (06:54)
[2016-12-15] MEDS ORDERED: Ondansetron 4 MG/2 ML VIAL IVP ONE (07:07)
[2016-12-15] MEDS ORDERED: *HR* Morphine 2 MG/ML SYRINGE IVP ONE (07:07)
--- NOTE | 2016-12-15 07:15 | Emergency Department Note ---
Disposition Clinical Impression: Hyperbilirubinemia, Hypercoagulable state Chest pain Qualifiers: Chest pain type: precordial pain Qualified Code(s): R07.2 - Precordial pain Disposition: Admitted As Inpatient Condition: Fair Chest Pain HPI - General Chief Complaint: ED Chest Pain Stated Complaint: Chest Pressure, Back Pain Time Seen by Provider: 12/15/16 06:54 Source: patient, family Mode of arrival: private vehicle Limitations: no limitations Vital Signs Reviewed: Yes Nursing Notes Reviewed: Yes - History of Present Illness Pt complaint: chest pain Onset (ago): hour(s) Duration: constant Onset: during rest, awoke with symptoms Pain Location: substernal, right chest Severity: moderate Severity scale (1-10): 6 Quality: aching, heaviness, sharp Pain Radiation: back Improves with: nothing Worsens with: nothing Context: recent surgery Associated symptoms: Reports: diaphoresis, dyspnea. Denies: nausea, vomiting, sense of impending doom, syncope, palpitations, fever, cough, leg swelling, other Treatments prior to arrival chest pain: other (BP meds) - Related Data Home Medications Medication Instructions Recorded Confirmed Digoxin [Lanoxin] 0.125 mg PO DAILY 04/23/15 12/10/16 Diltiazem HCl [Diltiazem ER] 180 mg PO BID 04/23/15 12/10/16 Ferrous Sulfate 325 mg PO BID 04/23/15 12/10/16 Finasteride [Proscar] 5 mg PO QAM 04/23/15 12/10/16 Furosemide [Lasix] 40 mg PO QAM 04/23/15 12/10/16 Simvastatin [Zocor] 20 mg PO QPM 04/23/15 12/10/16 Warfarin [Coumadin] 5 mg PO Q48H 04/23/15 12/10/16 Ascorbate Calcium [Vitamin C] 500 mg PO DAILY 12/04/15 12/10/16 Metoprolol [Lopressor] 50 mg PO BID 12/04/15 12/10/16 Multivit-Min/FA/Lycopen/Lutein 1 tab PO DAILY 12/04/15 12/10/16 [Adults 50+ Multivitamin Tablet] Vitamin E 1,000 unit PO DAILY 12/04/15 12/10/16 Warfarin [Coumadin] 7.5 mg PO Q48H 12/04/15 12/10/16 Losartan [Cozaar] 50 mg PO BID 08/04/16 12/10/16 hydrALAZINE [HydrALAZINE] 50 mg PO Q8HR 08/04/16 12/10/16 Previous Rx's Medication Instructions Recorded Acetaminophen [Tylenol] 650 mg PO Q6HR PRN #0 tablet 08/06/16 Omeprazole [PriLOSEC] 20 mg PO BIDAC #60 cap 08/06/16 Tramadol HCl [Ultram] 50 mg PO TID PRN #8 tab 12/11/16 Allergies Allergy/AdvReac Type Severity Reaction Status Date / Time macadamia nut oil Allergy Anaphylaxis Verified 12/15/16 06:43 hydrocodone [From Vicodin] AdvReac Itching Verified 12/15/16 06:43 All systems ED: reviewed and negative except as stated. Review of Systems: As Per HPI Constitutional: Denies: fever, chills, weakness Cardiovascular: Reports: as per HPI, chest pain, dyspnea on exertion. Denies: palpitations, orthopnea, edema, syncope, paroxysmal nocturnal dyspnea Respiratory: Reports: as per HPI, dyspnea. Denies: cough, wheezes, hemoptysis, stridor, sputum production Gastrointestinal: Denies: abdominal pain, nausea, vomiting, diarrhea Genitourinary: Reports: frequency. Denies: urgency, dysuria, hematuria, discharge Musculoskeletal: Reports: as per HPI, back pain. Denies: neck pain, joint swelling, arthralgia Integumentary: Denies: rash Neurological: Denies: headache, weakness, numbness, paresthesias Hematological/Lymphatic: Denies: easy bleeding, easy bruising, lymphadenopathy Chest Pain PMH - Past Medical History Medical history: Reports: atrial fibrillation, COPD, hypertension, myocardial infarction, other (BPH) Reports: Other (GERD - Recent GI bleed (July 2016)) Surgical history: Reports: other (Prostate procedure last week) Psychiatric history: Reports: no psych history - Social History Smoking Status: Never smoker Alcohol use: Reports: none Drug use: Reports: none Physical Exam - General Limitations: no limitations General appearance: alert, in no apparent distress - Head Head exam: atraumatic, normocephalic, normal inspection - Eye Eye exam: Present: PERRL, conjunctival injection (mild), other (Left eye moderate chemosis). Absent: scleral icterus - ENT ENT exam: mucous membranes dry - Neck Neck exam: Present: normal inspection, full ROM, trachea midline. Absent: meningismus - Chest Chest inspection: Present: normal inspection, symmetric chest wall rise. Absent : tenderness - Respiratory Respiratory exam: Present: normal lung sounds bilaterally. Absent: respiratory distress, wheezes, stridor, accessory muscle use, prolonged expiratory phase - Cardiovascular Cardiovascular exam: Present: regular rate, irregular rhythm, normal heart sounds - Abdominal Exam Abdominal exam: Present: soft, Non-Tender. Absent: distention, guarding, rebound, rigidity, mass, pulsatile mass - Extremities Exam Extremities exam: Present: normal inspection, full ROM, normal capillary refill. Absent: pedal edema - Neurological Exam Neurological exam: Present: alert, oriented X3, CN II-XII intact - Psychiatric Psychiatric exam: Present: normal affect, normal mood - Skin Skin exam: Present: warm, dry, intact, normal color Course Course Narrative: Patient with hx of AFib on Warfarin presents from home with for evaluation of CP that radiates into his back. It woke him from sleep. He states that he was feeling poorly before going to bed last night but did not have pain until this AM. He feels more short of breath than usual, but denies cough, hemoptysis , or increased pain with deep inspiration. He has Hx of CAD - one stent placed 3 yrs ago. No other procedures. Does not see a pressure testing technician. Also Hx of HTN - on 4 different BP meds, CHF and COPD. He had a procedure Saturday for his Prostate and had to stay over night in the hospital. He denies fever, chills, nausea, vomiting. states that when he woke up c/o pain he was diaphoretic. Patient denies urinary retention. Describes increased urinary frequency and some "leaking" though. Primary concerns are TAD, ACS. Case was discussed with Dr. Whitfield at 07:00. He immediately went to see the patient. He has reviewed the EKG as well as the previous attending as it was shift change. He has reviewed the orders, and recommends giving NTG and proceeding with CTA right away instead of waiting for BMP results. operating room surgical technician will be called. - Reevaluation(s) Reevaluation #1: Called rad again - operating room surgical technician is taking the crash cart to be exchanged and will return soon. She will let the tech know that we have requested the CTA to be done stat - without waiting for CR. Time: 07:21 Reevaluation #2: Second large bore IV is in and CT is aware of stat order. Patient has had morphine and 1 NTG. BP is 145/95. Pain is still same. This time however the patient localized the pain to the right flank area. Given his recent procedure, infectious etiology considered. Cultures, lactate and U/A orders added. Dr. Whitfield updated. Time: 07:31 Reevaluation #3: Pain is much better. Patient received a total of 2 NTG and 2mg of Morphine. His BP gradually decreased to 96/54. Fluids at bedside - KVO rate at this time. Time: 08:28 Additional Reevaluation(s): CT negative for dissection. Patient admitted to the hospitalist. - Consultations Consultation #1: "Contrast bolus was timed for dissection protocol, which could limit evaluation of small peripheral vessels, but there are No significant central pulmonary emboli" per Dr. Carroll - [facility]. Dr. Corea updated. Time: 09:16 Vital Signs Temperature 97.8 F 12/15/16 06:43 Pulse Rate 90 12/15/16 06:43 Respiratory Rate 22 12/15/16 06:43 Blood Pressure 195/98 12/15/16 06:43 O2 Sat by Pulse Oximetry 94 12/15/16 06:43 Temperature 98.0 F 12/15/16 09:22 Pulse Rate 102 12/15/16 09:22 Respiratory Rate 18 12/15/16 09:22 Blood Pressure 116/74 12/15/16 08:44 O2 Sat by Pulse Oximetry 95 12/15/16 09:22 Oxygen Delivery Oxygen Delivery Nasal Cannula Chest Pain - Medical Records Medical records reviewed: Yes I reviewed the patient's medical records. - Lab Data Lab results reviewed: Yes I reviewed the patient's lab results. Lab results narrative: Laboratory Last Values WBC 13.2 K/mcL (4.3-11.1) H 12/15/16 07:05 RBC 5.63 M/mcL (4.19-5.50) H 12/15/16 07:05 Hgb 17.2 g/dL (12.9-16.9) H 12/15/16 07:05 Hct 50.9 % (37.5-50.1) H 12/15/16 07:05 MCV 90.4 fL (83.0-100.0) 12/15/16 07:05 MCH 30.6 pg (28.0-33.3) 12/15/16 07:05 MCHC 33.8 g/dL (31.6-35.5) 12/15/16 07:05 RDW 13.6 % (11.5-14.5) 12/15/16 07:05 Plt Count 176 K/mcL (140-400) 12/15/16 07:05 MPV 12.4 fL (9.4-12.4) 12/15/16 07:05 Immature Gran % 0.7 % (0-4) 12/15/16 07:05 Seg Neutrophils % 77.9 % 12/15/16 07:05 Lymphocytes % 7.2 % 12/15/16 07:05 Monocytes % 11.6 % 12/15/16 07:05 Eosinophils % 2.4 % 12/15/16 07:05 Basophils % 0.2 % 12/15/16 07:05 Neutrophils # 10.3 K/mcL (1.6-8.9) H 12/15/16 07:05 Lymphocytes # 1.0 K/mcL (0.6-4.6) 12/15/16 07:05 Monocytes # 1.5 K/mcL (0.0-1.3) H 12/15/16 07:05 Eosinophils # 0.3 K/mcL (0.0-0.6) 12/15/16 07:05 Basophils # 0.0 K/mcL (0.0-0.2) 12/15/16 07:05 PT 15.2 Seconds (9.4-12.1) H 12/15/16 07:05 INR 1.4 12/15/16 07:05 APTT 29.3 Seconds (26.0-36.0) 12/15/16 07:05 Sodium 137 mEq/L (136-145) 12/15/16 07:05 Potassium 3.8 mEq/L (3.5-4.5) 12/15/16 07:05 Chloride 104 mEq/L (98-109) 12/15/16 07:05 Carbon Dioxide 24 mEq/L (19-29) 12/15/16 07:05 BUN 11 mg/dL (8-26) 12/15/16 07:05 Creatinine 1.01 mg/dL (0.72-1.25) 12/15/16 07:05 Est GFR ( Amer) > 60 (> 60) 12/15/16 07:05 Est GFR (Non-Af Amer) > 60 (> 60) 12/15/16 07:05 BUN/Creatinine Ratio 11 (6-26) 12/15/16 07:05 Glucose 155 mg/dL (70-99) H 12/15/16 07:05 Calculated Osmolality 287 (280-300) 12/15/16 07:05 Calcium 9.5 mg/dL (8.6-10.8) 12/15/16 07:05 Total Bilirubin 1.7 mg/dL (0.2-1.2) H 12/15/16 07:05 Direct Bilirubin 0.6 mg/dL (0.0-0.5) H 12/15/16 07:05 Indirect Bilirubin 1.1 mg/dL (0.0-1.2) 12/15/16 07:05 AST 15 Units/L (5-34) 12/15/16 07:05 ALT 26 Units/L (0-55) 12/15/16 07:05 Alkaline Phosphatase 82 Units/L (38-126) 12/15/16 07:05 Troponin I 0.01 ng/mL (0-0.03) 12/15/16 07:05 Serum Total Protein 7.0 g/dL (6.0-8.3) 12/15/16 07:05 Albumin 3.7 g/dL (3.5-5.0) 12/15/16 07:05 Globulin 3.3 g/dL (2.4-3.5) 12/15/16 07:05 Albumin/Globulin Ratio 1.1 (1.1-2.2) 12/15/16 07:05 Lipase 28 Units/L (8-78) 12/15/16 07:05 Result diagrams: 12/15/16 07:05 12/15/16 07:05 Lab Results 12/15/16 12/15/16 12/15/16 Range/Units 07:05 07:05 07:05 WBC 13.2 H (4.3-11.1) K/mcL RBC 5.63 H (4.19-5.50) M/mcL Hgb 17.2 H (12.9-16.9) g/dL Hct 50.9 H (37.5-50.1) % MCV 90.4 (83.0-100.0) fL MCH 30.6 (28.0-33.3) pg MCHC 33.8 (31.6-35.5) g/dL RDW 13.6 (11.5-14.5) % Plt Count 176 (140-400) K/mcL MPV 12.4 (9.4-12.4) fL Immature Gran % 0.7 (0-4) % Seg Neutrophils % 77.9 % Lymphocytes % 7.2 % Monocytes % 11.6 % Eosinophils % 2.4 % Basophils % 0.2 % Neutrophils # 10.3 H (1.6-8.9) K/mcL Lymphocytes # 1.0 (0.6-4.6) K/mcL Monocytes # 1.5 H (0.0-1.3) K/mcL Eosinophils # 0.3 (0.0-0.6) K/mcL Basophils # 0.0 (0.0-0.2) K/mcL PT 15.2 H (9.4-12.1) Seconds INR 1.4 APTT 29.3 (26.0-36.0) Seconds Sodium (136-145) mEq/L Potassium (3.5-4.5) mEq/L Chloride (98-109) mEq/L Carbon Dioxide (19-29) mEq/L BUN (8-26) mg/dL Creatinine (0.72-1.25) mg/dL Est GFR ( Amer) (> 60) Est GFR (Non-Af Amer) (> 60) BUN/Creatinine Ratio (6-26) Glucose (70-99) mg/dL Calculated Osmolality (280-300) Lactic Acid (0.5-2.2) mmol/L Calcium (8.6-10.8) mg/dL Total Bilirubin 1.7 H (0.2-1.2) mg/dL Direct Bilirubin 0.6 H (0.0-0.5) mg/dL Indirect Bilirubin 1.1 (0.0-1.2) mg/dL AST 15 (5-34) Units/L ALT 26 (0-55) Units/L Alkaline Phosphatase 82 (38-126) Units/L Troponin I (0-0.03) ng/mL Serum Total Protein 7.0 (6.0-8.3) g/dL Albumin 3.7 (3.5-5.0) g/dL Globulin 3.3 (2.4-3.5) g/dL Albumin/Globulin Ratio 1.1 (1.1-2.2) Lipase 28 (8-78) Units/L Urine Color (Yellow) Urine Clarity (Clear) Urine pH (5.0-8.0) pH Units Ur Specific Harlan (1.010-1.025) Urine Protein (Neg-Trace) mg/dL Urine Glucose (UA) (Normal) mg/dL Urine Ketones (Negative) mg/dL Urine Blood (Negative) Urine Nitrite (Negative) Urine Bilirubin (Negative) Urine Urobilinogen (Normal) mg/dL Ur Leukocyte Esterase (Negative) Urine Microscopic RBC (0-3) per hpf Urine Microscopic WBC (0-3) per hpf Ur Squamous Epith Cells (None-Few) per lpf Urine Bacteria (None-Few) per hpf Hyaline Casts (None-Few) per lpf Ur Culture Indicated? (NO) 12/15/16 12/15/16 12/15/16 Range/Units 07:05 07:05 07:47 WBC (4.3-11.1) K/mcL RBC (4.19-5.50) M/mcL Hgb (12.9-16.9) g/dL Hct (37.5-50.1) % MCV (83.0-100.0) fL MCH (28.0-33.3) pg MCHC (31.6-35.5) g/dL RDW (11.5-14.5) % Plt Count (140-400) K/mcL MPV (9.4-12.4) fL Immature Gran % (0-4) % Seg Neutrophils % % Lymphocytes % % Monocytes % % Eosinophils % % Basophils % % Neutrophils # (1.6-8.9) K/mcL Lymphocytes # (0.6-4.6) K/mcL Monocytes # (0.0-1.3) K/mcL Eosinophils # (0.0-0.6) K/mcL Basophils # (0.0-0.2) K/mcL PT (9.4-12.1) Seconds INR APTT (26.0-36.0) Seconds Sodium 137 (136-145) mEq/L Potassium 3.8 (3.5-4.5) mEq/L Chloride 104 (98-109) mEq/L Carbon Dioxide 24 (19-29) mEq/L BUN 11 (8-26) mg/dL Creatinine 1.01 (0.72-1.25) mg/dL Est GFR ( Amer) > 60 (> 60) Est GFR (Non-Af Amer) > 60 (> 60) BUN/Creatinine Ratio 11 (6-26) Glucose 155 H (70-99) mg/dL Calculated Osmolality 287 (280-300) Lactic Acid (0.5-2.2) mmol/L Calcium 9.5 (8.6-10.8) mg/dL Total Bilirubin (0.2-1.2) mg/dL Direct Bilirubin (0.0-0.5) mg/dL Indirect Bilirubin (0.0-1.2) mg/dL AST (5-34) Units/L ALT (0-55) Units/L Alkaline Phosphatase (38-126) Units/L Troponin I 0.01 (0-0.03) ng/mL Serum Total Protein (6.0-8.3) g/dL Albumin (3.5-5.0) g/dL Globulin (2.4-3.5) g/dL Albumin/Globulin Ratio (1.1-2.2) Lipase (8-78) Units/L Urine Color Yellow (Yellow) Urine Clarity Clear (Clear) Urine pH 6.5 (5.0-8.0) pH Units Ur Specific Harlan 1.013 (1.010-1.025) Urine Protein Negative (Neg-Trace) mg/dL Urine Glucose (UA) Normal (Normal) mg/dL Urine Ketones Negative (Negative) mg/dL Urine Blood Small H (Negative) Urine Nitrite Negative (Negative) Urine Bilirubin Negative (Negative) Urine Urobilinogen Normal (Normal) mg/dL Ur Leukocyte Esterase Negative (Negative) Urine Microscopic RBC 5-15 H (0-3) per hpf Urine Microscopic WBC 5-15 H (0-3) per hpf Ur Squamous Epith Cells None Seen (None-Few) per lpf Urine Bacteria None Seen (None-Few) per hpf Hyaline Casts None Seen (None-Few) per lpf Ur Culture Indicated? NO (NO) 12/15/16 Range/Units 08:05 WBC (4.3-11.1) K/mcL RBC (4.19-5.50) M/mcL Hgb (12.9-16.9) g/dL Hct (37.5-50.1) % MCV (83.0-100.0) fL MCH (28.0-33.3) pg MCHC (31.6-35.5) g/dL RDW (11.5-14.5) % Plt Count (140-400) K/mcL MPV (9.4-12.4) fL Immature Gran % (0-4) % Seg Neutrophils % % Lymphocytes % % Monocytes % % Eosinophils % % Basophils % % Neutrophils # (1.6-8.9) K/mcL Lymphocytes # (0.6-4.6) K/mcL Monocytes # (0.0-1.3) K/mcL Eosinophils # (0.0-0.6) K/mcL Basophils # (0.0-0.2) K/mcL PT (9.4-12.1) Seconds INR APTT (26.0-36.0) Seconds Sodium (136-145) mEq/L Potassium (3.5-4.5) mEq/L Chloride (98-109) mEq/L Carbon Dioxide (19-29) mEq/L BUN (8-26) mg/dL Creatinine (0.72-1.25) mg/dL Est GFR ( Amer) (> 60) Est GFR (Non-Af Amer) (> 60) BUN/Creatinine Ratio (6-26) Glucose (70-99) mg/dL Calculated Osmolality (280-300) Lactic Acid 2.0 (0.5-2.2) mmol/L Calcium (8.6-10.8) mg/dL Total Bilirubin (0.2-1.2) mg/dL Direct Bilirubin (0.0-0.5) mg/dL Indirect Bilirubin (0.0-1.2) mg/dL AST (5-34) Units/L ALT (0-55) Units/L Alkaline Phosphatase (38-126) Units/L Troponin I (0-0.03) ng/mL Serum Total Protein (6.0-8.3) g/dL Albumin (3.5-5.0) g/dL Globulin (2.4-3.5) g/dL Albumin/Globulin Ratio (1.1-2.2) Lipase (8-78) Units/L Urine Color (Yellow) Urine Clarity (Clear) Urine pH (5.0-8.0) pH Units Ur Specific Harlan (1.010-1.025) Urine Protein (Neg-Trace) mg/dL Urine Glucose (UA) (Normal) mg/dL Urine Ketones (Negative) mg/dL Urine Blood (Negative) Urine Nitrite (Negative) Urine Bilirubin (Negative) Urine Urobilinogen (Normal) mg/dL Ur Leukocyte Esterase (Negative) Urine Microscopic RBC (0-3) per hpf Urine Microscopic WBC (0-3) per hpf Ur Squamous Epith Cells (None-Few) per lpf Urine Bacteria (None-Few) per hpf Hyaline Casts (None-Few) per lpf Ur Culture Indicated? (NO) - Radiology Data Radiology results reviewed: Yes I reviewed the patient's radiology results. Chest X-Ray 12/15/16 06:54 IMPRESSION: No convincing evidence of edema or pneumonia. Mild right basilar opacity most likely reflects atelectasis. The heart size appears upper normal. D/ / Adolfo Villa MD / Adolfo Villa MD Interpreting Provider: Adolfo Villa MD Abdomen/Pelvis CTA 12/15/16 00:00 IMPRESSION: 1. No evidence of aortic dissection 2. Calcific Coronary atherosclerosis 3. Small right pleural effusion with right basilar atelectasis 4. Haziness of the perivesical fat should be correlated with any clinical findings of cystitis 5. Right inguinal hernia containing the anterior right aspect of the urinary bladder D/ / Jorge Carroll MD / Jorge Carroll MD Interpreting Provider: Jorge Carroll MD Chest X-Ray 12/15/16 06:54 IMPRESSION: No convincing evidence of edema or pneumonia. Mild right basilar opacity most likely reflects atelectasis. The heart size appears upper normal. D/ / 12/15/2016 08:54:07 Adolfo Villa MD / ralf Interpreting Provider: Adolfo Villa MD Chest CTA 12/15/16 07:17 IMPRESSION: 1. No evidence of aortic dissection 2. Calcific Coronary atherosclerosis 3. Small right pleural effusion with right basilar atelectasis 4. Haziness of the perivesical fat should be correlated with any clinical findings of cystitis 5. Right inguinal hernia containing the anterior right aspect of the urinary bladder D/ / Jorge Carroll MD / Jorge Carroll MD Interpreting Provider: Jorge Carroll MD - EKG Data EKG attestation: Yes I reviewed and interpreted this EKG. Rate: normal Rhythm: A.Fib [place]/QRS: RBBB ST segment depression in: I, II, aVL, v2, v3, v5 T wave inversions noted in: III, aVR, v1, v2, v3 When compared to previous EKG there are: no significant changes Interpretation: unchanged when compared to prior tracing (date) - Core Measures AMI Core Measures Followed: Yes Heart Score - Score History: Moderately Suspicious EKG: Significant ST-Depression Age: Greater than 65 Risk Factors: Equal/Greater than 3 risk factor or history of atherosclerotic disease Troponin: 1-3x normal limit HEART Score Total: 8 Critical Care Time Critical Care Time: Yes Total Critical Care Time: 30 Attestation: Critical care of this patient for chest pain was 35 min exclusive of other billable procedures. Patient had a significant Attestation Statement - Attestation Attestation: She was seen in cooperation with the physician drafter assistant. I reviewed the history physical assessment and plan and I agree with findings. I also personally evaluated this patient and had [id number] time with this patient. 81-year-old male presents to the emergency room with chest pain pain is sharp it is on the right side of the chest but radiates into the back and has become somewhat all encompassing. Patient states is associated with shortness of breath and he is diaphoretic as well. No nausea vomiting or diarrhea. On examination vital signs showed mild hypertension. Regular rhythm. ENT was unremarkable. Heart regular rhythm and rate. Lungs clear to auscultation had some increased work of breathing. Chest wall was stable I could not reproduce the pain with palpation of the back or the chest wall. Abdomen was soft and nontender. Extremities are unremarkable. Neurologically intact. ED course EKG did not show acute ischemic changes. The history that was somewhat concerning for thoracic dissection. We did get a CT scan which did not reveal a dissection. Remainder of workup did not show any causes of his chest discomfort. However because the patient's age and comorbidities we will admit him to the hospitalist service for formal rule out and further workup for his chest pain. Critical care time for this patient was 35 minutes to manage his chest pain. I agree with the physician drafter assistant assessment and plan.
[2016-12-15 07:21] LABS: Basophils % 0.2 %; Eosinophils # 0.3 K/mcL (0.0-0.6); Eosinophils % 2.4 %; Hematocrit 50.9 % (37.5-50.1); Hemoglobin 17.2 g/dL (12.9-16.9); Immature Granulocytes % 0.7 % (0-4); Lymphocytes % 7.2 %; Mean Corpuscular HGB Conc 33.8 g/dL (31.6-35.5); Mean Corpuscular Hemoglobin 30.6 pg (28.0-33.3); Mean Corpuscular Volume 90.4 fL (83.0-100.0); Mean Platelet Volume 12.4 fL (9.4-12.4); Monocytes # 1.5 K/mcL (0.0-1.3); Monocytes % 11.6 %; Neutrophils # 10.3 K/mcL (1.6-8.9); Platelet Count 176 K/mcL (140-400); Red Blood Count 5.63 M/mcL (4.19-5.50); Red Cell Distribution Width 13.6 % (11.5-14.5); Segmented Neutrophils % 77.9 %
[2016-12-15 07:23] LABS: INR 1.4; Prothrombin Time 15.2 Seconds (9.4-12.1)
[2016-12-15 07:26] LABS: Activated Partial Thrombo Time 29.3 Seconds (26.0-36.0)
[2016-12-15 07:29] LABS: BUN/Creatinine Ratio 11 (6-26); Blood Urea Nitrogen 11 mg/dL (8-26); Calcium 9.5 mg/dL (8.6-10.8); Carbon Dioxide 24 mEq/L (19-29); Chloride 104 mEq/L (98-109); Glucose 155 mg/dL (70-99); Osmolality,Calculated 287 (280-300); Potassium 3.8 mEq/L (3.5-4.5); Sodium 137 mEq/L (136-145); eGFR For African Americans > 60 (> 60); eGFR For Non-African Americans > 60 (> 60)
[2016-12-15 07:32] LABS: Albumin 3.7 g/dL (3.5-5.0); Albumin/Globulin Ratio 1.1 (1.1-2.2); Bilirubin,Direct 0.6 mg/dL (0.0-0.5); Bilirubin,Indirect 1.1 mg/dL (0.0-1.2); Bilirubin,Total 1.7 mg/dL (0.2-1.2); Globulin 3.3 g/dL (2.4-3.5)
[2016-12-15] MEDS: 0.9 % Sodium Chloride 1,000 ML IVC SCH (07:36)
[2016-12-15] MEDS: Nitroglycerin 0.4 MG TAB.SUBL SL ONE ×2 (07:37→08:10)
[2016-12-15 07:58] LABS: Bilirubin,Urine Negative (Negative); Blood,Urine Small (Negative); Clarity,Urine Clear (Clear); Color,Urine Yellow (Yellow); Glucose,Urine (UA) Normal (Normal); Ketones,Urine Negative (Negative); Leukocyte Esterase,Urine Negative (Negative); Nitrite,Urine Negative (Negative); PH,Urine 6.5 pH Units (5.0-8.0); Protein,Urine Negative (Neg-Trace); Specific Gravity,Urine 1.013 (1.010-1.025); Urobilinogen,Urine Normal (Normal)
[2016-12-15 08:01] LABS: Bacteria,Urine None Seen per hpf (None-Few); Hyaline Casts,Urine None Seen per lpf (None-Few); Squamous Epithelial Cell,Urine None Seen per lpf (None-Few)
[2016-12-15] MEDS ORDERED: *HR* Enoxaparin 120 MG/0.8 ML SYRINGE SQ ONE (09:52)
--- NOTE | 2016-12-15 09:56 | Internal Med History&Physical ---
Date of Encounter: 12/24/16 Time of Encounter: 09:53 Assessment and Plan (1) Chest pain Status: Acute The character of Pain is definitely concerning for pulmonary embolism. This is especially important in the setting of withholding anticoagulants as well as recent surgery. Unfortunately CT scan was not dedicated to look for pulmonary embolism. To avoid a 2nd contrast load I will do as EQ scan now. I would also start the patient and folders anticoagulation since his INR is only 1.4. Will also trend troponin. EKG unchanged from previous. He has slight elemental volume overload will give gentle diuresis. Full code Qualifiers: Qualified Code(s): R07.9 - Chest pain, unspecified (2) Atrial fibrillation Status: Acute Chronic persistent atrial fibrillation. Rate controlled. Continue anticoagulation. Qualifiers: Qualified Code(s): I48.91 - Unspecified atrial fibrillation (3) S/P TURP Status: Acute Urine has some pus cells and RBCs, negative nitrite and leukocyte esterase. Hold off antibiotics for now, check urine culture Internal Medicine - H&P: HPI Chief complaint: loin pain History of present illness: Mr. Rangel is a 81 year old male with multiple medical problems who had recently transurethral resection of the prostate 5 days ago and was started on Coumadin which he is taking for atrial fibrillation 4 days ago (INR today 1.4), presents to the emergency room today with the main complain of right flank pain. Since early this morning patient started experiencing pain in the right flank area that he noticed worsening with deep inspiration. He also noted that he is more short of breath than usual. He has some swelling in both lower extremities but this is not more than his baseline. Patient mentioned that he stopped Coumadin or months prior to the surgery after he had a bleeding ulcer and this Coumadin suspension continued till after surgery. He denies any prior history of DVT or pulmonary embolism. He had coronary angiograms before last was 2 years ago during which a stent was placed. He denies any increase in coffer sputum production. No fevers or chills. CTA scan was performed in the emergency room mainly to allow dissection and was negative. Patient has some urine frequency, denies any hematuria, fevers chills Past Med Surg Social Fam HX - Past Medical History Medical history: atrial fibrillation, COPD, hypertension, myocardial infarction Psychiatric history: no psych history - Past Surgical History Surgical History: angioplasty/stent, appendectomy, cholecystectomy, herniorrhaphy, other - Social History Smoking Status: Never smoker Smokeless Tobacco Status: No Alcohol use: none Drug use: none - Family History Father Living Status: Hx Family Cardiac Disorders: Yes Hx Family Respiratory Disorders: No Hx Family Cancer: No Hx Family GI Disorders: No Hx Family Endocrine Disorder: No Hx Family Neuromuscular Disorders: No Hx Family Neurologic Disorders: No Hx Family HEENT Disorders: No Hx Family Autoimmune Disorders: No Mother Living Status: Hx Family Cardiac Disorders: No Hx Family Respiratory Disorders: No Hx Family Cancer: No Hx Family GI Disorders: No Hx Family Endocrine Disorder: No Hx Family Neuromuscular Disorders: No Hx Family Neurologic Disorders: Yes (cva) Hx Family HEENT Disorders: No Hx Family Autoimmune Disorders: No Brother Living Status: Still Living Hx Family Cardiac Disorders: Yes Hx Family Respiratory Disorders: No Hx Family Cancer: Yes (skin) Hx Family GI Disorders: No Hx Family Endocrine Disorder: No Hx Family Neuromuscular Disorders: No Hx Family Neurologic Disorders: No Hx Family HEENT Disorders: No Hx Family Autoimmune Disorders: No Son Living Status: Still Living Hx Family Cardiac Disorders: Yes Hx Family Respiratory Disorders: No Hx Family Cancer: No Hx Family GI Disorders: No Hx Family Endocrine Disorder: No Hx Family Neuromuscular Disorders: No Hx Family Neurologic Disorders: No Hx Family HEENT Disorders: No Hx Family Autoimmune Disorders: No Internal Medicine - H&P: Meds Ferrous Sulfate 325 mg PO BID 04/23/15 [History] Finasteride [Proscar] 5 mg PO QAM 04/23/15 [History] Furosemide [Lasix] 40 mg PO QAM 04/23/15 [History] Simvastatin [Zocor] 20 mg PO QPM 04/23/15 [History] Ascorbate Calcium [Vitamin C] 500 mg PO DAILY 12/04/15 [History] Multivit-Min/FA/Lycopen/Lutein [Adults 50+ Multivitamin Tablet] 1 tab PO DAILY 12/04/15 [History] Vitamin E 1,000 unit PO DAILY 12/04/15 [History] Losartan [Cozaar] 50 mg PO BID 08/04/16 [History] hydrALAZINE [HydrALAZINE] 50 mg PO Q8HR 08/04/16 [History] Acetaminophen [Tylenol] 650 mg PO Q6HR PRN #0 tablet 08/06/16 [Rx] Omeprazole [PriLOSEC] 20 mg PO BIDAC #60 cap 08/06/16 [Rx] Tramadol HCl [Ultram] 50 mg PO TID PRN #8 tab 12/11/16 [Rx] Metoprolol [Lopressor] 50 mg PO BID #60 tablet 12/18/16 [Rx] Warfarin [Coumadin] 5 mg PO 1800 #30 tablet 12/18/16 [Rx] 3 Allergy/AdvReac Type Severity Reaction Status Date / Time macadamia nut oil Allergy Anaphylaxis Verified 12/15/16 06:43 hydrocodone [From Vicodin] AdvReac Itching Verified 12/15/16 06:43 All Systems PM: A 10-system review of systems was performed and is negative for pertinent findings except as documented above in the HPI. Review of systems: 10 point review systems is negative except for HPI - Constitutional Vitals: Temp Pulse Resp BP Pulse Ox 98.0 F 102 18 116/74 95 12/15/16 09:22 12/15/16 09:22 12/15/16 09:22 12/15/16 08:44 12/15/16 09:22 Exam: Gen.: patient is alert oriented times 3 cardiac: normal S1 S2 no additional sounds or murmurs chest: no active wheezing or bronchial breathing abdomen protruberant but soft nontender nondistended normal bowel sounds lower extremity 1+ swelling. Neuro: no new focal deficits Internal Med - H&P Results - Labs CBC & Chem 7: 12/16/16 04:33 12/16/16 04:33
[2016-12-15] MEDS: Furosemide 20 MG/2 ML VIAL IVP SCH (11:14)
[2016-12-15] MEDS ORDERED: Nitroglycerin 0.4 MG TAB.SUBL SL PRN (14:49)
[2016-12-15] MEDS: *HR* Morphine 2 MG/ML SYRINGE IVP PRN ×2 (15:28→23:22)
[2016-12-15] MEDS: Diltiazem CD (24hr) 180 MG CAPSULE PO SCH (22:23)
[2016-12-16] MEDS: 0.9 % Sodium Chloride 1,000 ML IVC SCH (01:38)
[2016-12-16 04:43] LABS: Basophils % 0.3 %; Eosinophils # 0.3 K/mcL (0.0-0.6); Eosinophils % 2.6 %; Hematocrit 45.9 % (37.5-50.1); Hemoglobin 15.1 g/dL (12.9-16.9); Immature Granulocytes % 0.8 % (0-4); Lymphocytes % 9.4 %; Mean Corpuscular HGB Conc 32.9 g/dL (31.6-35.5); Mean Corpuscular Volume 91.3 fL (83.0-100.0); Mean Platelet Volume 12.4 fL (9.4-12.4); Monocytes # 1.2 K/mcL (0.0-1.3); Monocytes % 11.6 %; Platelet Count 140 K/mcL (140-400); Red Blood Count 5.03 M/mcL (4.19-5.50); Red Cell Distribution Width 13.5 % (11.5-14.5); Segmented Neutrophils % 75.3 %
[2016-12-16 04:58] LABS: BUN/Creatinine Ratio 14 (6-26); Blood Urea Nitrogen 12 mg/dL (8-26); Calcium 8.8 mg/dL (8.6-10.8); Carbon Dioxide 23 mEq/L (19-29); Chloride 105 mEq/L (98-109); Glucose 131 mg/dL (70-99); Osmolality,Calculated 286 (280-300); Sodium 137 mEq/L (136-145); eGFR For African Americans > 60 (> 60); eGFR For Non-African Americans > 60 (> 60)
[2016-12-16 04:59] LABS: Magnesium 2.2 mg/dL (1.6-2.6)
[2016-12-16] MEDS: Diltiazem CD (24hr) 180 MG CAPSULE PO SCH ×2 (07:55→22:13)
[2016-12-16] MEDS: *HR* Morphine 2 MG/ML SYRINGE IVP PRN (07:55)
[2016-12-16] MEDS: Finasteride 5 MG TABLET PO SCH (07:55)
[2016-12-16] MEDS: Furosemide 20 MG/2 ML VIAL IVP SCH (07:55)
[2016-12-16] MEDS: hydrALAZINE 25 MG TABLET PO SCH ×2 (08:49→17:55)
[2016-12-16] MEDS ORDERED: *HR* Digoxin 0.125 MG TABLET PO SCH (09:00)
--- NOTE | 2016-12-16 12:08 | Internal Med Progress Note ---
Date of Encounter: 12/16/16 Time of Encounter: 12:03 - Assessment and plan (1) Chest pain Current Visit: Yes Status: Acute Assessment and plan: So far negative Troponin no acute EKG changes His CP / Rt upper back pain seems more like MSK pain Cont Tylenol PRN / Morphine PRN No further work up needed ordered 2 D Echo Qualifiers: Qualified Code(s): R07.9 - Chest pain, unspecified (2) Hypertensive urgency Current Visit: Yes Status: Acute Assessment and plan: Noticed uncontrolled BP Resumed all home meds Cont IV Hydralazine PRN if BP still elevated will adjust home meds (3) Hypoxia Current Visit: Yes Status: Acute Assessment and plan: ruled out PE his VQ scan came back as very low probability for PE Pt stated he was not on O2 at home his Hypoxia could be due to hypoventilation syndrome with his morbid obesity / and possible JUDY Cont duoneb prn Will try to wean him off the O2 as he tolerated May need home O2 eval before he goes home PT / OT eval (4) Chronic atrial fibrillation Current Visit: No Status: Acute Assessment and plan: rate controlled with digoxin and Metoprolol on Coumadin for anti coag..INR still sub therapeutic.. Pharmacy consulted for Coumadin dosing (5) COPD (chronic obstructive pulmonary disease) Current Visit: Yes Status: Chronic Assessment and plan: not in exacerbation will place him on duoneb no need of steroids Qualifiers: Qualified Code(s): J44.9 - Chronic obstructive pulmonary disease, unspecified (6) S/P TURP Current Visit: Yes Status: Acute Assessment and plan: need to f/u with Urology as an out pt - Subjective Interval history: Mr. Rangel is a 81 year old male with known PMH of atrial fibrillation, COPD , hypertension, CAD who recently had transurethral resection of the prostate 5 days ago and was started on Coumadin which he is taking for atrial fibrillation 4 days ago (INR today 1.4), presented to the emergency room with the main complain of right upper back. Since early this morning patient started experiencing pain in the right upper back area that he noticed worsening with deep inspiration. He also noted that he is more short of breath than usual. He is alert, awake and O x 3 now. Denied any CP / SOB. Still has Rt upper back pain, improving with IV Morphine. - Constitutional Vitals: Temp Pulse Resp BP Pulse Ox 98.4 F 83 16 150/89 96 12/16/16 10:04 12/16/16 10:04 12/16/16 10:04 12/16/16 10:04 12/16/16 10:04 General appearance: Present: A&O X 3, no acute distress, answers questions appropriately - Head Head exam: Present: atraumatic, normal inspection - Neck Neck exam general surgery: Present: supple. Absent: lymphadenopathy, normal inspection - Respiratory Respiratory exam: Present: decreased breath sounds, wheezes (mild). Absent: rales, respiratory distress, rhonchi - Cardiovascular Cardiovascular exam: Present: RRR, +S1, +S2. Absent: systolic murmur - GI/Abdominal GI/Abdominal exam: Present: distended, normal bowel sounds, soft. Absent: rebound, rigid, tenderness - Extremities Exam Extremities exam: Absent: calf tenderness, pedal edema, tenderness - Back Exam Back exam: Absent: CVA tenderness (L), CVA tenderness (R) - Neurological Exam Neurological exam: Present: alert, oriented X3 - Psychiatric Psychiatric exam: Present: normal affect, normal mood Internal Medicine: Result - Labs CBC & Chem 7: 12/16/16 04:33 12/16/16 04:33 Labs: Short CBC 12/16/16 Range/Units 04:33 WBC 10.5 (4.3-11.1) K/mcL Hgb 15.1 D (12.9-16.9) g/dL Hct 45.9 (37.5-50.1) % Plt Count 140 (140-400) K/mcL Neutrophils # 8.0 (1.6-8.9) K/mcL BMP 12/16/16 04:33 Sodium 137 Potassium 4.0 Chloride 105 Carbon Dioxide 23 BUN 12 Creatinine 0.84 Glucose 131 H Calcium 8.8 Cardiac Enzymes 12/15/16 12/15/16 Range/Units 14:38 19:52 Troponin I 0.01 0.01 (0-0.03) ng/mL - ABG Interpretation ABG results: PT/INR, D-dimer PT 15.2 Seconds (9.4-12.1) H 12/15/16 07:05 D-Dimer 741 ng/mLFEU (0-500) H 12/15/16 14:38 - Impressions Impressions Pulmonary Perfusion Imaging 12/15/16 12:42 IMPRESSION: Very low probability for pulmonary embolism. D/ / David Pruett MD / David Pruett MD Interpreting Provider: David Pruett MD Consult Discharge Plan - Plan Referrals: Twan Luong Jr, MD [Primary Care Provider] -
[2016-12-16] MEDS ORDERED: Acetaminophen 325 MG TABLET PO PRN (12:17)
[2016-12-16 16:59] LABS: INR 1.4; Prothrombin Time 14.8 Seconds (9.4-12.1)
[2016-12-16] MEDS ORDERED: *HR* Warfarin 7.5 MG TABLET PO ONE (18:00)
[2016-12-16] MEDS ORDERED: Warfarin perPT PO PRN (18:00)
[2016-12-16] MEDS: Sennosides/Docusate Sodium TABLET PO SCH (22:30)
[2016-12-17] MEDS: hydrALAZINE 25 MG TABLET PO SCH ×3 (00:10→15:40)
--- NOTE | 2016-12-17 04:54 | Event Note ---
Date of Encounter: 12/17/16 Time of Encounter: 04:52 Called by RN stating patient is having 1.5 second pauses on telemetry. I stopped his Digoxin and Lopressor. I wrote some hold parameters for his Cardizem CD. I also put in a consult for cardiology to assess.
[2016-12-17 05:00] LABS: INR 1.4; Prothrombin Time 14.7 Seconds (9.4-12.1)
[2016-12-17] MEDS: Diltiazem CD (24hr) 180 MG CAPSULE PO SCH ×2 (07:46→20:17)
[2016-12-17] MEDS: Sennosides/Docusate Sodium TABLET PO SCH ×2 (07:58→20:17)
[2016-12-17] MEDS: Finasteride 5 MG TABLET PO SCH (07:58)
[2016-12-17] MEDS: Furosemide 40 MG TABLET PO SCH (07:58)
[2016-12-17] MEDS: Ascorbic Acid 500 MG TABLET PO SCH (07:58)
--- NOTE | 2016-12-17 08:28 | Cardiology Consult Note ---
Date of Encounter: 12/17/16 Time of Encounter: 09:30 Assessment and Plan (1) Chronic atrial fibrillation Current Visit: No Status: Acute Chronic a fib on Coumadin, rate controlled. Patient is on Coumadin currently subtherapeutic with an INR of 1.4. Patient stopped Coumadin 6 weeks ago 2/2 peptic ulcer and TURP proceedure, restarted coumadin about 4 days ago. Patient has been rate controlled with his home medications of Metoprolol 50mg PO bid Cardizem 180mg po,and Digoxin 0.125mg po daily. Patient was taking BB and Digoxin in hospital. Digoxin level subtherapeutic. Cardiology was consulted for 1.5 sec pause in telemetry. During this episode patient did not have any symptoms. Primary team stopped both last night 2/2 pauses and started Cardizem, but patient was not given Cardizem this morning 2/ 2 bradycardia at 57bpm. On telemetry this morning, HR average 68bpm and longest pause 2.57 seconds. In the setting of afib pauses <3.0 seconds are typically asymptomatic and insignificant. plan: - restart Metoprolol 50mg BID - stop Dilitiazem and Digoxin now and for home meds - continue to control htn, per primary team management - Continue coumadin with pharmacy to adjust dose based on INR - echo results pending - continue telemetry - f/u appointment with cardiology in 1-2 weeks (2) Chest pain Current Visit: Yes Status: Acute Atypical chest pain, on the R side of his chest and relieved by changes in position. Most likely MSK related. Troponin neg x3. Echo is pending. Qualifiers: Qualified Code(s): R07.9 - Chest pain, unspecified Discussion w patient/family: The assessment and plan as outlined above was discussed with the patient and/or family members who expressed understanding and agreement. All questions were answered. Thank you for involving us in the care of your patient. Please call with any questions. History of Present Illness Consult date: 12/17/16 Requesting physician: Patric Monte Consult reason: 1.5 second pauses on telemetry Chief complaint: right upper back pain History of present illness: Mr. Rangel is a 81 year old male with a pmh of CAD (CAESAR 10/2012) , afib on coumadin initiated 4 days ago after not taking for 6 weeks 2/2 UGI bleed, HTN, CHF, and COPD presented to the ED with right sided chest pain, sob, and upper mid back pain which started the evening before arrival. Cardiology was consulted for 1.5 second pause on telemetry. Patient states that he did not feel anything when this occurred and actually his chest and back pain has completely resolved. Patient states that he is still short of breath though and requiring oxygen which he does not require at home. After seeing the pause on telemetry, primary team stopped digoxin and BB and initiated Cardizem instead. Patient was not given Cardizem this morning due to HR being 57bmp. Past Med Surg Social Fam HX - Past Medical History Medical history: atrial fibrillation, COPD, hypertension, myocardial infarction , other (BPH) Psychiatric history: no psych history - Past Surgical History Surgical History: other (Prostate procedure last week) - Social History Smoking Status: Never smoker Smokeless Tobacco Status: No Alcohol use: none Drug use: none - Family History Father Living Status: Hx Family Cardiac Disorders: Yes Hx Family Respiratory Disorders: No Hx Family Cancer: No Hx Family GI Disorders: No Hx Family Endocrine Disorder: No Hx Family Neuromuscular Disorders: No Hx Family Neurologic Disorders: No Hx Family HEENT Disorders: No Hx Family Autoimmune Disorders: No Mother Living Status: Hx Family Cardiac Disorders: No Hx Family Respiratory Disorders: No Hx Family Cancer: No Hx Family GI Disorders: No Hx Family Endocrine Disorder: No Hx Family Neuromuscular Disorders: No Hx Family Neurologic Disorders: Yes (cva) Hx Family HEENT Disorders: No Hx Family Autoimmune Disorders: No Brother Living Status: Still Living Hx Family Cardiac Disorders: Yes Hx Family Respiratory Disorders: No Hx Family Cancer: Yes (skin) Hx Family GI Disorders: No Hx Family Endocrine Disorder: No Hx Family Neuromuscular Disorders: No Hx Family Neurologic Disorders: No Hx Family HEENT Disorders: No Hx Family Autoimmune Disorders: No Son Living Status: Still Living Hx Family Cardiac Disorders: Yes Hx Family Respiratory Disorders: No Hx Family Cancer: No Hx Family GI Disorders: No Hx Family Endocrine Disorder: No Hx Family Neuromuscular Disorders: No Hx Family Neurologic Disorders: No Hx Family HEENT Disorders: No Hx Family Autoimmune Disorders: No Medications and Allergies Digoxin [Lanoxin] 0.125 mg PO DAILY 04/23/15 [History] Diltiazem HCl [Diltiazem ER] 180 mg PO BID 04/23/15 [History] Ferrous Sulfate 325 mg PO BID 04/23/15 [History] Finasteride [Proscar] 5 mg PO QAM 04/23/15 [History] Furosemide [Lasix] 40 mg PO QAM 04/23/15 [History] Simvastatin [Zocor] 20 mg PO QPM 04/23/15 [History] Ascorbate Calcium [Vitamin C] 500 mg PO DAILY 12/04/15 [History] Metoprolol [Lopressor] 50 mg PO BID 12/04/15 [History] Multivit-Min/FA/Lycopen/Lutein [Adults 50+ Multivitamin Tablet] 1 tab PO DAILY 12/04/15 [History] Vitamin E 1,000 unit PO DAILY 12/04/15 [History] Losartan [Cozaar] 50 mg PO BID 08/04/16 [History] hydrALAZINE [HydrALAZINE] 50 mg PO Q8HR 08/04/16 [History] Acetaminophen [Tylenol] 650 mg PO Q6HR PRN #0 tablet 08/06/16 [Rx] Omeprazole [PriLOSEC] 20 mg PO BIDAC #60 cap 08/06/16 [Rx] Tramadol HCl [Ultram] 50 mg PO TID PRN #8 tab 12/11/16 [Rx] 3 Allergy/AdvReac Type Severity Reaction Status Date / Time macadamia nut oil Allergy Anaphylaxis Verified 12/15/16 06:43 hydrocodone [From Vicodin] AdvReac Itching Verified 12/15/16 06:43 All Systems Review: A 10-system review of systems was performed and is negative for pertinent findings except as documented above in the HPI. Physical Examination Vital Signs, Last 4 Hours Temp Pulse Resp BP Pulse Ox 12/17/16 07:56 97.6 F 65 16 153/73 96 General: Conversant, No Apparent Distress HEENT: Atraumatic, Normocephaly, Mucus Membranes Moist Neck: No JVD, Normal carotid pulses Cardiac: No Murmur, Other (irregularly irregular) Lungs: Other (+ wheezing) Neuro: Alert and responsive, No focal deficits noted Abdomen: Soft, Non-Tender Skin: No rashes noted on visualized skin Musculoskeletal: No Chest Wall Tenderness Extremities: No Clubbing, No Cyanosis, No Edema, Normal Pulses Results 12/16/16 04:33 12/16/16 04:33 Lab Results 12/16/16 12/17/16 16:39 04:20 INR 1.4 1.4 - EKG Interpretation EKG results cardiology: personally reviewed, right bundle branch block ( bradycardic at 57 bpm, afib) Consult Discharge Plan - Plan Referrals: Twan Luong Jr, MD [Primary Care Provider] -
--- NOTE | 2016-12-17 13:05 | Internal Med Progress Note ---
Date of Encounter: 12/17/16 Time of Encounter: 08:20 - Assessment and plan (1) Chest pain Current Visit: Yes Status: Acute Assessment and plan: Atypical chest pain - likely musculoskeletal, symptoms now improved - His CP / Rt upper back pain seems more like musculoskeletal pain Continue Coumadin, Zocor, Lopressor, Nitro PRN, Tylenol PRN / Morphine PRN EKG - sinus rhythm with no acute ST-T changes Troponin - negative Echocardiogram - LVEF 65%, normal RV structure and function, severe biatrial enlargement No further work up needed INR is subtherapeutic, pharmacy to dose Coumadin Cardiac telemetry, labs in a.m., monitor closely Qualifiers: Chest pain type: precordial pain Qualified Code(s): R07.2 - Precordial pain (2) Chronic atrial fibrillation Current Visit: No Status: Acute Assessment and plan: Chronic atrial fibrillation, rate controlled Continue Lopressor, hold Cardizem and Digoxin Continue Coumadin for anticoagulation, INR is subtherapeutic Pharmacy consulted for Coumadin dosing Cardiology consult for asymptomatic pause - recommendations reviewed, appreciate input Cardiac telemetry, labs in a.m., monitor closely (3) Hypertensive urgency Current Visit: Yes Status: Acute Assessment and plan: Hypertensive urgency - blood pressure now controlled Continue Lopressor, Cozaar, Lasix Cont IV Hydralazine PRN (4) COPD (chronic obstructive pulmonary disease) Current Visit: Yes Status: Chronic Assessment and plan: COPD, stable - not in exacerbation Qualifiers: Qualified Code(s): J44.9 - Chronic obstructive pulmonary disease, unspecified (5) CAD (coronary artery disease) Current Visit: No Status: Chronic Assessment and plan: Coronary artery disease status post stents, stable Continue Zocor, Coumadin, Lopressor Patient is not on Aspirin or Plavix at home Qualifiers: Coronary Disease-Associated Artery/Lesion type: [place] artery Elem vs. transplanted heart: [place]ainwright heart Associated angina: without angina Qualified Code(s): I25.10 - Atherosclerotic heart disease of [place] coronary artery without angina pectoris (6) S/P TURP Current Visit: Yes Status: Acute Assessment and plan: need to f/u with Urology as outpatient (7) DVT prophylaxis Current Visit: Yes Status: Acute Assessment and plan: Continue Coumadin - Time Spent With Patient 25 - 35 minutes - Subjective Interval history: Examined this morning. Patient is awake and alert. Not in any distress. Denies chest pain or shortness of breath. No fever. Hemodynamically stable. Patient had asymptomatic pauses last night. Lopressor and Digoxin were held. Cardiology following. INR is subtherapeutic. Pharmacy to dose Coumadin. No other acute events or complaints. - Constitutional Vitals: Temp Pulse Resp BP Pulse Ox 97.8 F 78 16 145/53 98 12/17/16 10:48 12/17/16 10:48 12/17/16 10:48 12/17/16 10:48 12/17/16 11:50 General appearance: Present: cooperative, A&O X 3, pleasant, no acute distress, obese, answers questions appropriately - Head Head exam: Present: atraumatic - Eye Eye exam: Present: EOMI - ENT ENT exam: Present: mucous membranes moist - Respiratory Respiratory exam: Present: CTAB. Absent: rales, rhonchi, wheezes, tachypnea - Cardiovascular Cardiovascular exam: Present: irregular rhythm, +S1, +S2 - GI/Abdominal GI/Abdominal exam: Present: soft. Absent: distended, firm, guarding, tenderness - Extremities Exam Extremities exam: Present: radial pulses palpable and symmetrical. Absent: calf tenderness, cyanotic, pedal edema - Neurological Exam Neurological exam: Present: alert, oriented X3, no focal deficits. Absent: facial droop, speech deficit Internal Medicine: Result - Labs CBC & Chem 7: 12/16/16 04:33 12/16/16 04:33 - ABG Interpretation ABG results: PT/INR, D-dimer PT 14.7 Seconds (9.4-12.1) H 12/17/16 04:20 D-Dimer 741 ng/mLFEU (0-500) H 12/15/16 14:38 - Impressions Impressions Echocardiogram 12/17/16 07:55 Impressions: LVEF 65%. Indeterminate diastolic function. Normal right ventricular structure and function. Severe bi-atrial enlargement. Mild-moderate aortic regurgitation. Mild mitral regurgitation. Moderate tricuspid regurgitation. Moderate pulmonic regurgitation. Mild pulmonary hypertension. Left Ventricular Wall Motion: Rest Echo Findings All wall segments showed normal motion. Findings: Study Quality * Technically adequate exam. ECG Findings * Atrial fibrillation. Left Ventricle * LVEF 65%. * Indeterminate diastolic function. * Normal LV size and wall thickness. Right Ventricle * Normal right ventricular structure and function. Left Atrium * Severely dilated left atrium. Right Atrium * Severely dilated right atrium. Aortic Valve * Moderately sclerotic aortic valve leaflets. * Trileaflet aortic valve. * Mild-moderate aortic regurgitation. * No aortic stenosis. Mitral Valve * No mitral stenosis. * Mildly thickened mitral valve leaflets. * Mild mitral regurgitation. Tricuspid Valve * Normal tricuspid valve structure. * Moderate tricuspid regurgitation. * Estimated RA pressure is 3 mmHg. * Estimated RVSP is 38 mmHg. * Mild pulmonary hypertension. Pulmonic Valve * Pulmonic valve not well visualized. * Moderate pulmonic regurgitation. * No pulmonic stenosis. Pulmonary Artery * Pulmonary artery not well visualized. Aorta * Normally sized aortic root. Pericardium * There is no pericardial effusion present. Interatrial Septum * No evidence of PFO by color Doppler. IVC * Normal IVC dimensions and inspiratory collapse. Consult Discharge Plan - Plan Referrals: Twan Luong Jr, MD [Primary Care Provider] -
--- NOTE | 2016-12-17 17:09 | Electrocardiograph Report ---
[address] [place] [address] Test Date: 2016-12-15 Pat Name: Torrey Rangel Department: [id number] Room: 3B21 Gender: M Shoulder Puncher: CRIS : [id number] Requested By: Ewa Huerta Order Number: [id number] Reading MD: Oralia Marin Measurements Intervals [place] Rate: 89 P: PA: 0 QRS: 63 QRSD: 165 T: -5 QT: 397 QTc: 443 Interpretive Statements ATRIAL FIBRILLATION RIGHT BUNDLE BRANCH BLOCK [120+ ms QRS DURATION, UPRIGHT V1, 40+ ms S IN I/aVL/V4/V5/V6] ST DEPRESSION, CONSIDER SUBENDOCARDIAL INJURY [0.1+ mV ST DEPRESSION] Electronically Signed On 12-17-2016 17:07:42 EST by Oralia Marin
[2016-12-17] MEDS ORDERED: *HR* Warfarin 7.5 MG TABLET PO ONE (18:00)
[2016-12-17] MEDS: 0.9 % Sodium Chloride 1,000 ML IVC SCH (20:00)
[2016-12-18] MEDS: hydrALAZINE 25 MG TABLET PO SCH ×2 (00:22→07:36)
[2016-12-18 05:21] LABS: INR 1.6; Prothrombin Time 17.3 Seconds (9.4-12.1)
[2016-12-18 07:05] VITALS: BP 183/103
[2016-12-18] MEDS: Finasteride 5 MG TABLET PO SCH (07:35)
[2016-12-18] MEDS: Furosemide 40 MG TABLET PO SCH (07:35)
[2016-12-18] MEDS: Sennosides/Docusate Sodium TABLET PO SCH (07:36)
[2016-12-18] MEDS: Ascorbic Acid 500 MG TABLET PO SCH (07:36)
--- NOTE | 2016-12-18 09:03 | Discharge Summary ---
Date of Encounter: 12/18/16 Time of Encounter: 07:45 - Discharge Diagnosis (1) Chest pain Priority: Primary Status: Acute Comments: Atypical chest pain - likely musculoskeletal, symptoms now improved - His CP / Rt upper back pain seems more like musculoskeletal pain Continue Coumadin, Zocor, Lopressor, Nitro PRN, Tylenol PRN / Morphine PRN EKG - sinus rhythm with no acute ST-T changes Troponin - negative Echocardiogram - LVEF 65%, normal RV structure and function, severe biatrial enlargement No further work up needed Cardiology consult - recommendations reviewed, appreciate input INR is slowly trending upward, advised to follow up with Coumadin clinic in 2 days' time to check PT/INR Return if symptoms worsen, follow up with cardiology and PCP as outpatient Qualifiers: Chest pain type: precordial pain Qualified Code(s): R07.2 - Precordial pain (2) Chronic atrial fibrillation Priority: Primary Status: Acute Comments: Chronic atrial fibrillation, rate controlled Continue Lopressor 50 mg BID Hold Cardizem and Digoxin Continue Coumadin for anticoagulation, follow-up with Coumadin clinic for PT/ INR recheck PCP to adjust Coumadin dose Cardiology consult for asymptomatic pause - recommendations reviewed, appreciate input Follow-up with cardiology as outpatient (3) Hypertensive urgency Priority: Primary Status: Acute Comments: Hypertensive urgency - blood pressure now controlled Continue Lopressor, Cozaar, Lasix, Hydralazine Follow-up with PCP (4) COPD (chronic obstructive pulmonary disease) Priority: Primary Status: Chronic Comments: COPD, stable - not in exacerbation Qualifiers: COPD type: emphysema Emphysema type: unspecified Qualified Code(s): J43.9 - Emphysema, unspecified (5) CAD (coronary artery disease) Priority: Secondary Status: Chronic Comments: Coronary artery disease status post stents, stable Continue Zocor, Coumadin, Lopressor Patient is not on Aspirin or Plavix at home Qualifiers: Coronary Disease-Associated Artery/Lesion type: [place] artery [place] vs. transplanted heart: [place] heart Associated angina: without angina Qualified Code(s): I25.10 - Atherosclerotic heart disease of [place] coronary artery without angina pectoris (6) S/P TURP Priority: Secondary Status: Acute Comments: need to f/u with Urology as outpatient - Discharge Medications Prescriptions: Metoprolol [Lopressor] 50 mg PO BID #60 tablet Warfarin [Coumadin] 5 mg PO 1800 #30 tablet Home Medications: Ferrous Sulfate 325 mg PO BID 04/23/15 [History] Finasteride [Proscar] 5 mg PO QAM 04/23/15 [History] Furosemide [Lasix] 40 mg PO QAM 04/23/15 [History] Simvastatin [Zocor] 20 mg PO QPM 04/23/15 [History] Ascorbate Calcium [Vitamin C] 500 mg PO DAILY 12/04/15 [History] Multivit-Min/FA/Lycopen/Lutein [Adults 50+ Multivitamin Tablet] 1 tab PO DAILY 12/04/15 [History] Vitamin E 1,000 unit PO DAILY 12/04/15 [History] Losartan [Cozaar] 50 mg PO BID 08/04/16 [History] hydrALAZINE [HydrALAZINE] 50 mg PO Q8HR 08/04/16 [History] Acetaminophen [Tylenol] 650 mg PO Q6HR PRN #0 tablet 08/06/16 [Rx] Omeprazole [PriLOSEC] 20 mg PO BIDAC #60 cap 08/06/16 [Rx] Tramadol HCl [Ultram] 50 mg PO TID PRN #8 tab 12/11/16 [Rx] Metoprolol [Lopressor] 50 mg PO BID #60 tablet 12/18/16 [Rx] Warfarin [Coumadin] 5 mg PO 1800 #30 tablet 12/18/16 [Rx] Allergies/Adverse Reactions: 3 Allergy/AdvReac Type Severity Reaction Status Date / Time macadamia nut oil Allergy Anaphylaxis Verified 12/15/16 06:43 hydrocodone [From Vicodin] AdvReac Itching Verified 12/15/16 06:43 Procedures/tests Complete & Pending: Procedures Performed prior 72 hours Category Date Time Status NM pul vent and perfuse [NM] Stat Exams 12/15/16 12:42 Completed EV echocardiogram Routine Y 12/17/16 07:55 Completed Date of admission: 12/15/16 08:42 Primary care physician: Twan Luong Jr, MD Consults: 12/17/16 04:52 Consult to Cardiology [CONS] Routine Comment: Consulting Provider: Card[facility] [place] Reason for Consult: 1.5 second pauses on telemetry. Call Completed: No 12/17/16 08:02 Consult for Pharmacy Education [CONS] Routine Reason for Consult: warfarin dosing Call Completed: No Anticipated date of discharge: 12/18/16 - Patient Status Disposition: Home Health Service Condition: Fair Functional capacity at discharge: independent ambulation Overall status at discharge: patient is progressing back to baseline - Discharge Instructions Instructions: Atrial Fibrillation (DC), Chest Pain (DC), Elevated INR (DC) Follow Up With: Charlie Hussein MD [Partnered Physician] - (Office will call with appointment date/time.) Twan Luong Jr, MD [Primary Care Provider] - 12/24/16 4:15 pm (This appointment is with Dr. Forrest) Additional Instructions: - Continue all meds as per discharge instructions - Hold Cardizem and Digoxin, continue Lopressor - Recheck PT/INR in 2 days time - Coumadin dose to be adjusted by PCP - Continue Coumadin 7.5 mg for today and tomorrow - Follow up PCP and cardiology as outpatient - Return if symptoms worsen - Diet and Activity Activity: increase activity as tolerated, resume usual activities as tolerated Diet: low fat, low cholesterol, low salt diet Hospital course: Mr. Rangel is a 81 year old male with past medical history of atrial fibrillation, COPD, hypertension and coronary artery disease. Patient presented to the ED with complaints of right flank pain. He apparently had a recent transurethral resection of the prostate. Pain was worse with deep inspiration. He stopped Coumadin prior to surgery. He has recently restarted Coumadin. Patient was admitted for chest pain. EKG does not show any acute changes. Troponin is negative. His right upper back pain and chest pain is likely musculoskeletal. Echocardiogram revealed LVEF 65% with indeterminate diastolic function and severe biatrial enlargement. Agent also had hypertensive urgency which is now improved. He also had initial hypoxia and his VQ scan is negative for PE. Patient was continued on DuoNeb breathing treatment. He likely has obstructive sleep apnea. Patient was continued on his home meds of digoxin and metoprolol and Coumadin for A. fib. His INR is currently subtherapeutic and he has been advised to continue 7.5 mg for the next 2 days and have his INR checked in 2 days time. Patient did have a asymptomatic because on telemetry. Cardiology has evaluated the patient. Advised to continue metoprolol but to hold his Cardizem and digoxin. Patient has been advised to continue all his other home medications. He has been explained about his condition and plan of care in detail. No other acute events or complaints. Patient understood and agreed. He is tolerating oral diet well and ambulating well. No other acute events or complications during his stay. No unanswered questions. Patient is being discharged in a stable condition. - Time Spent with Patient Total time spent providing and/or coordinating discharge services: Less than 30 minutes - Constitutional Vitals: Temp Pulse Resp BP Pulse Ox 98.1 F 94 16 183/103 96 12/18/16 07:04 12/18/16 07:04 12/18/16 07:04 12/18/16 07:04 12/18/16 07:48 General appearance: Present: cooperative, A&O X 3, pleasant, no acute distress, obese, answers questions appropriately - Head Head exam: Present: atraumatic - Eye Eye exam: Present: EOMI - ENT ENT exam: Present: mucous membranes moist - Respiratory Respiratory exam: Present: CTAB. Absent: rales, rhonchi, wheezes, tachypnea - Cardiovascular Cardiovascular exam: Present: irregular rhythm, +S1, +S2 - GI/Abdominal GI/Abdominal exam: Present: soft. Absent: distended, firm, guarding, tenderness - Extremities Exam Extremities exam: Present: radial pulses palpable and symmetrical. Absent: calf tenderness, cyanotic, pedal edema - Neurological Exam Neurological exam: Present: alert, oriented X3, no focal deficits. Absent: facial droop, speech deficit
--- NOTE | 2016-12-18 09:16 | Physician Discharge Referral ---
Home Health/Hosp Referral Info Transfer to: Home Health Provider in Charge Post Discharge: PCP - Diagnosis (1) Chest pain Priority: Primary Status: Acute (2) Chronic atrial fibrillation Priority: Primary Status: Acute (3) Hypertensive urgency Priority: Primary Status: Acute (4) COPD (chronic obstructive pulmonary disease) Priority: Secondary Status: Chronic (5) CAD (coronary artery disease) Priority: Secondary Status: Chronic (6) S/P TURP Priority: Secondary Status: Acute - Respiratory Orders Smoking Cessation: Smoking cessation has been advised. For more information, call the [place] Tobacco Quit Line at 8-548-SWSS-NOW. - Diet/Nutrition Diet/Nutrition Orders: Cardiac - Activity Activity Orders: Ambulate - Services Needed Following services are medically necessary services: Nursing, Physical Therapy - Transfer Medications Prescriptions: Metoprolol [Lopressor] 50 mg PO BID #60 tablet Warfarin [Coumadin] 5 mg PO 1800 #30 tablet Home Medications: Ferrous Sulfate 325 mg PO BID 04/23/15 [History] Finasteride [Proscar] 5 mg PO QAM 04/23/15 [History] Furosemide [Lasix] 40 mg PO QAM 04/23/15 [History] Simvastatin [Zocor] 20 mg PO QPM 04/23/15 [History] Ascorbate Calcium [Vitamin C] 500 mg PO DAILY 12/04/15 [History] Multivit-Min/FA/Lycopen/Lutein [Adults 50+ Multivitamin Tablet] 1 tab PO DAILY 12/04/15 [History] Vitamin E 1,000 unit PO DAILY 12/04/15 [History] Losartan [Cozaar] 50 mg PO BID 08/04/16 [History] hydrALAZINE [HydrALAZINE] 50 mg PO Q8HR 08/04/16 [History] Acetaminophen [Tylenol] 650 mg PO Q6HR PRN #0 tablet 08/06/16 [Rx] Omeprazole [PriLOSEC] 20 mg PO BIDAC #60 cap 08/06/16 [Rx] Tramadol HCl [Ultram] 50 mg PO TID PRN #8 tab 12/11/16 [Rx] Metoprolol [Lopressor] 50 mg PO BID #60 tablet 12/18/16 [Rx] Warfarin [Coumadin] 5 mg PO 1800 #30 tablet 12/18/16 [Rx] Allergies/Adverse Reactions: 3 Allergy/AdvReac Type Severity Reaction Status Date / Time macadamia nut oil Allergy Anaphylaxis Verified 12/15/16 06:43 hydrocodone [From Vicodin] AdvReac Itching Verified 12/15/16 06:43 Certification: Further, I certify that my clinical findings support that this patient is homebound (i.e. absences from home require considerable and taxing effort and are for medical reasons or sabianist services or infrequently or short duration when for other reasons) because: Homebound Reason: Patient requires assistance of a person or device to safely leave home Attestation: My signature below is to certify that this patient is under my care and that I, or nurse practitioner, or a physician's speech therapy assistant working with me, has a face-to -face encounter with this patient.
[2016-12-19 17:53] LABS: CK-MB (CK isoenzymes) 0 % (0-4); CK-MM (CK-isoenzymes) 100 % (96-100)
[2016-12-19 17:53] LABS: CK-MB (CK isoenzymes) 0 % (0-4); CK-MM (CK-isoenzymes) 100 % (96-100)
[2016-12-20 07:12] LABS: CK Total (Ck Isoenzymes) 32 U/L (20-200); CK-BB (CK isoenzymes) 0 % (0-0)
[2016-12-20 07:12] LABS: CK Total (Ck Isoenzymes) 30 U/L (20-200); CK-BB (CK isoenzymes) 0 % (0-0)
== END 2016-12-18 12:01 | disposition home health service (06) ==
LOC: EMEROO 06:42 → 3BNU 06:42 → SUATTDRO 08:42 → 3BNU 09:13
PROVIDERS: ADMIT Hospitalist; ATTEND Family Medicine

== ENCOUNTER 2017-11-07 07:37 | Observation (INO) ==
[2017-11-07] MEDS ORDERED: Pantoprazole 80 MG in 0.9 % Sodium Chloride 50 ML IVPB ONE (07:54)
--- NOTE | 2017-11-07 08:11 | Emergency Department Note ---
Disposition Clinical Impression: Lower gastrointestinal hemorrhage Disposition: Admitted As Inpatient Condition: Fair Time of Disposition: 09:26 GI Bleed HPI - General Chief complaint: ED GI Bleed Stated complaint: GI Bleed Time Seen by Provider: 11/07/17 07:45 Source: patient, family Mode of arrival: ambulatory Limitations: no limitations Nursing Notes Reviewed: Yes Vital Signs Reviewed: Yes - History of Present Illness HPI Narrative: Patient presents to the ED with the chief complaint of rectal bleeding. Patient had a colonoscopy with Dr. schreiber 4 days ago. States that he had 7 polyps removed. He is on Coumadin for A. fib and restarted it the evening after his procedure. States last night he went to use the bathroom and had bright red blood. Denies any associated abdominal pain or cramping with this. States had another episode this morning. Denies any fever, chills, chest pain or shortness breath. No associated abdominal pain, nausea or vomiting. He has not felt lightheaded, weak or dizzy. He states that he had a similar issue several years ago after colonoscopy and did need a blood transfusion. - Related Data Home Medications Medication Instructions Recorded Confirmed Ferrous Sulfate 325 mg PO BID 04/23/15 11/07/17 Finasteride [Proscar] 5 mg PO QAM 04/23/15 11/07/17 Furosemide [Lasix] 40 mg PO QAM 04/23/15 11/07/17 Simvastatin [Zocor] 20 mg PO QPM 04/23/15 11/07/17 Ascorbate Calcium [Vitamin C] 500 mg PO DAILY 12/04/15 11/07/17 Multivit-Min/FA/Lycopen/Lutein 1 tab PO DAILY 12/04/15 11/07/17 [Adults 50+ Multivitamin Tablet] Vitamin E 1,000 unit PO DAILY 12/04/15 11/07/17 Losartan [Cozaar] 50 mg PO BID 08/04/16 11/07/17 hydrALAZINE [HydrALAZINE] 50 mg PO Q8HR 08/04/16 11/07/17 Warfarin [Coumadin] 5 mg PO Q48H 11/07/17 11/07/17 Warfarin [Coumadin] 7.5 mg PO Q48H 11/07/17 11/07/17 Previous Rx's Medication Instructions Recorded Acetaminophen [Tylenol] 650 mg PO Q6HR PRN #0 tablet 08/06/16 Omeprazole [PriLOSEC] 20 mg PO BIDAC #60 cap 08/06/16 Metoprolol [Lopressor] 50 mg PO BID #60 tablet 12/18/16 Allergies Allergy/AdvReac Type Severity Reaction Status Date / Time macadamia nut oil Allergy Anaphylaxis Verified 12/15/16 06:43 hydrocodone [From Vicodin] AdvReac Itching Verified 12/15/16 06:43 Review of Systems: As reviewed in the HPI. All other systems reviewed are negative or normal. Past Medical History - Past Medical History Attestation: Yes The following information was validated with the patient. Source: patient Medical history: Reports: atrial fibrillation, COPD, hypertension, myocardial infarction, other Surgical history: Reports: angioplasty/stent, cholecystectomy, tonsilectomy Psychiatric history: Reports: no psych history - Social History Smoking Status: Never smoker Smokeless Tobacco Status: No Alcohol use: Reports: none Drug use: Reports: none Physical Exam CONSTITUTIONAL: [well appearing, alert and in no acute distress] EYES: [EOMI, clear conjunctiva, PERRLA] HENT: [Normocephalic, atraumatic, moist mucus membranes, normal oropharynx] NECK: [normal inspection, full ROM, trachea midline, no obvious swelling] PULMONARY: [normal lung sounds bilaterally, normal chest rise and fall, no respiratory distress or stridor, no wheezes, no rales, no rhonchi CARDIOVASCULAR: [regular rate, irregular rhythm, normal heart sounds, no murmurs , distal extremities are warm and well perfused] GASTROINSTESTINAL: [soft, non-tender, non-rigid, non-distended, no guarding, no rebound, normal bowel sounds] GENITOURINARY/RECTAL: [deferred] NEUROLOGIC: [Alert, oriented x3, normal speech, moves all extremities, normal gait] EXTREMITIES: [Normal inspection, full ROM, no tenderness, no pedal edema, normal capillary refill] MUSCULOSKELETAL: [no gross deformities, atraumatic] SKIN: [No cyanosis, no diaphoresis, normal color, warm, no rash] PSYCHIATRIC: [normal mood and affect] - General Limitations: no limitations General appearance: alert, in no apparent distress Course Course Narrative: Patient presenting with rectal bleeding after colonoscopy. Is on Coumadin for A. fib. We will get labs, chest x-ray, EKG. Protonix administered. Touch base with his PCP after labs are back. Patient currently stable - Reevaluation(s) Reevaluation #1: Spoke with the patient's endoscopist. Agreeable with admission. wants vitamin K. We will admit the hospitalist service. Patient did have another large bloody bowel movement while in the ED. Vital Signs Temperature 97.8 F 11/07/17 07:45 Pulse Rate 67 11/07/17 07:45 Respiratory Rate 16 11/07/17 07:45 Blood Pressure 159/89 11/07/17 07:45 O2 Sat by Pulse Oximetry 100 11/07/17 07:45 Temperature 97.8 F 11/07/17 07:45 Pulse Rate 85 11/07/17 09:41 Respiratory Rate 21 11/07/17 09:41 Blood Pressure 117/66 11/07/17 09:41 O2 Sat by Pulse Oximetry 96 11/07/17 09:41 Oxygen Delivery Oxygen Delivery Room Air GI Bleed - Medical Records Medical records reviewed: Yes I reviewed the patient's medical records. - Lab Data Lab results reviewed: Yes I reviewed the patient's lab results. Result diagrams: 11/07/17 07:59 11/07/17 07:59 Lab Results 11/07/17 11/07/17 11/07/17 Range/Units 07:59 07:59 07:59 WBC 7.4 (4.3-11.1) K/mcL RBC 5.30 (4.19-5.50) M/mcL Hgb 16.3 (12.9-16.9) g/dL Hct 49.9 (37.5-50.1) % MCV 94.2 (83.0-100.0) fL MCH 30.8 (28.0-33.3) pg MCHC 32.7 (31.6-35.5) g/dL RDW 12.7 (11.5-14.5) % Plt Count 170 (140-400) K/mcL MPV 12.5 H (9.4-12.4) fL Immature Gran % 0.4 (0-4) % Seg Neutrophils % 69.6 % Lymphocytes % 16.3 % Monocytes % 10.3 % Eosinophils % 3.1 % Basophils % 0.3 % Neutrophils # 5.2 (1.6-8.9) K/mcL Lymphocytes # 1.2 (0.6-4.6) K/mcL Monocytes # 0.8 (0.0-1.3) K/mcL Eosinophils # 0.2 (0.0-0.6) K/mcL Basophils # 0.0 (0.0-0.2) K/mcL PT 19.1 H (9.4-12.1) Seconds INR 1.7 Sodium 137 (136-145) mEq/L Potassium 3.7 (3.5-5.1) mEq/L Chloride 106 (98-107) mEq/L Carbon Dioxide 23 (23-29) mEq/L BUN 19 (8-23) mg/dL Creatinine 1.00 (0.70-1.30) mg/dL Est GFR ( Amer) > 60 (> 60) Est GFR (Non-Af Amer) > 60 (> 60) BUN/Creatinine Ratio 19 (6-26) Glucose 124 H (70-105) mg/dL Calculated Osmolality 288 (280-300) Lactic Acid (0.5-2.2) mmol/L Calcium 9.7 (8.6-10.3) mg/dL Total Bilirubin 1.2 H (0.3-1.0) mg/dL AST 19 (13-39) Units/L ALT 21 (7-52) Units/L Alkaline Phosphatase 62 (34-104) Units/L Troponin I < 0.03 (< 0.04) ng/mL Serum Total Protein 6.2 L (6.4-8.9) g/dL Albumin 4.1 (3.5-5.7) g/dL Globulin 2.1 L (2.4-3.5) g/dL Albumin/Globulin Ratio 2.0 (1.1-2.2) Blood Type Antibody Screen 11/07/17 11/07/17 Range/Units 07:59 08:52 WBC (4.3-11.1) K/mcL RBC (4.19-5.50) M/mcL Hgb (12.9-16.9) g/dL Hct (37.5-50.1) % MCV (83.0-100.0) fL MCH (28.0-33.3) pg MCHC (31.6-35.5) g/dL RDW (11.5-14.5) % Plt Count (140-400) K/mcL MPV (9.4-12.4) fL Immature Gran % (0-4) % Seg Neutrophils % % Lymphocytes % % Monocytes % % Eosinophils % % Basophils % % Neutrophils # (1.6-8.9) K/mcL Lymphocytes # (0.6-4.6) K/mcL Monocytes # (0.0-1.3) K/mcL Eosinophils # (0.0-0.6) K/mcL Basophils # (0.0-0.2) K/mcL PT (9.4-12.1) Seconds INR Sodium (136-145) mEq/L Potassium (3.5-5.1) mEq/L Chloride (98-107) mEq/L Carbon Dioxide (23-29) mEq/L BUN (8-23) mg/dL Creatinine (0.70-1.30) mg/dL Est GFR ( Amer) (> 60) Est GFR (Non-Af Amer) (> 60) BUN/Creatinine Ratio (6-26) Glucose (70-105) mg/dL Calculated Osmolality (280-300) Lactic Acid 1.9 (0.5-2.2) mmol/L Calcium (8.6-10.3) mg/dL Total Bilirubin (0.3-1.0) mg/dL AST (13-39) Units/L ALT (7-52) Units/L Alkaline Phosphatase (34-104) Units/L Troponin I (< 0.04) ng/mL Serum Total Protein (6.4-8.9) g/dL Albumin (3.5-5.7) g/dL Globulin (2.4-3.5) g/dL Albumin/Globulin Ratio (1.1-2.2) Blood Type O POSITIVE Antibody Screen NEGATIVE - EKG Data EKG attestation: Yes I reviewed and interpreted this EKG. EKG results narrative: A. fib, rate 74, QTC 490, normal axis, right bundle branch block that is unchanged from previous, no acute ischemic changes
[2017-11-07 08:14] LABS: Basophils % 0.3 %; Eosinophils # 0.2 K/mcL (0.0-0.6); Eosinophils % 3.1 %; Hematocrit 49.9 % (37.5-50.1); Hemoglobin 16.3 g/dL (12.9-16.9); Immature Granulocytes % 0.4 % (0-4); Lymphocytes # 1.2 K/mcL (0.6-4.6); Lymphocytes % 16.3 %; Mean Corpuscular HGB Conc 32.7 g/dL (31.6-35.5); Mean Corpuscular Hemoglobin 30.8 pg (28.0-33.3); Mean Corpuscular Volume 94.2 fL (83.0-100.0); Mean Platelet Volume 12.5 fL (9.4-12.4); Monocytes # 0.8 K/mcL (0.0-1.3); Monocytes % 10.3 %; Neutrophils # 5.2 K/mcL (1.6-8.9); Platelet Count 170 K/mcL (140-400); Red Cell Distribution Width 12.7 % (11.5-14.5); Segmented Neutrophils % 69.6 %
[2017-11-07 08:22] LABS: INR 1.7; Prothrombin Time 19.1 Seconds (9.4-12.1)
[2017-11-07 08:35] LABS: Troponin I < 0.03 ng/mL (< 0.04)
[2017-11-07 08:36] LABS: Alanine Aminotransferase 21 Units/L (7-52); Albumin 4.1 g/dL (3.5-5.7); Alkaline Phosphatase 62 Units/L (34-104); Aspartate Amino Transferase 19 Units/L (13-39); BUN/Creatinine Ratio 19 (6-26); Bilirubin,Total 1.2 mg/dL (0.3-1.0); Blood Urea Nitrogen 19 mg/dL (8-23); Calcium 9.7 mg/dL (8.6-10.3); Carbon Dioxide 23 mEq/L (23-29); Chloride 106 mEq/L (98-107); Globulin 2.1 g/dL (2.4-3.5); Glucose 124 mg/dL (70-105); Osmolality,Calculated 288 (280-300); Potassium 3.7 mEq/L (3.5-5.1); Sodium 137 mEq/L (136-145); Total Protein 6.2 g/dL (6.4-8.9); eGFR For Non-African Americans > 60 (> 60)
[2017-11-07] MEDS ORDERED: Acetaminophen 325 MG TABLET PO PRN (09:28)
[2017-11-07] MEDS ORDERED: Naloxone 0.4 MG/ML INJ IVP PRN (09:31)
--- NOTE | 2017-11-07 09:34 | Internal Med History&Physical ---
Date of Encounter: 11/07/17 Time of Encounter: 09:34 Internal Medicine - H&P: HPI Chief complaint: Bright Red Blood Per Rectum Admitted From: Home Plans for Post Hospital Care: Home History of present illness: Mr. Rangel is a 82 year old male with past history of atrial fibrillation and presents to the emergency department chief complaint of bright red blood per rectum. The patient states that on Saturday of this week the patient had colonoscopy 07 polyps removed as a follow-up to a colonoscopy 3 years ago which she had 1 polyp removed. The patient was told to resume his Coumadin on Saturday evening which she did. The patient first noticed bright red blood per rectum around midnight last night and had another episode around 6 PM and then presented to the emergency department. Since then he has had 2 additional episodes in the emergency department 1 with a large volume of bright red blood and 1 with a very small volume per patient. Patient states that he has had a diverticular bleed in the past that did require blood transfusion however he states that he currently feels okay. The patient admits to mild abdominal bloating, denies any chest pain, shortness of breath, nausea, palpitations, vomiting, lightheadedness, dizziness, blurry vision, double vision. Patient has been afebrile. In the emergency department initial hemoglobin was 16.3. This is being repeated now. Patient's vital signs have been stable. Emergency department provider spoke to Dr. Grajeda who performed colonoscopy and patient was started on protonic and given 10 mg of vitamin K. INR on admission was 1.7. Patient will be placed in observation for serial CBCs and close monitoring. Past Med Surg Social Fam HX - Past Medical History Medical history: atrial fibrillation, COPD, hypertension, myocardial infarction , other Additional medical history: anemia Psychiatric history: no psych history - Past Surgical History Surgical History: angioplasty/stent, cholecystectomy, tonsilectomy Additional surgical history: prostate surgery - Social History Smoking Status: Never smoker Smokeless Tobacco Status: No Alcohol use: none Drug use: none - Family History Father Living Status: Hx Family Cardiac Disorders: Yes Hx Family Respiratory Disorders: No Hx Family Cancer: No Hx Family GI Disorders: No Hx Family Endocrine Disorder: No Hx Family Neuromuscular Disorders: No Hx Family Neurologic Disorders: No Hx Family HEENT Disorders: No Hx Family Autoimmune Disorders: No Mother Living Status: Hx Family Cardiac Disorders: No Hx Family Respiratory Disorders: No Hx Family Cancer: No Hx Family GI Disorders: No Hx Family Endocrine Disorder: No Hx Family Neuromuscular Disorders: No Hx Family Neurologic Disorders: Yes (cva) Hx Family HEENT Disorders: No Hx Family Autoimmune Disorders: No Brother Living Status: Still Living Hx Family Cardiac Disorders: Yes Hx Family Respiratory Disorders: No Hx Family Cancer: Yes (skin) Hx Family GI Disorders: No Hx Family Endocrine Disorder: No Hx Family Neuromuscular Disorders: No Hx Family Neurologic Disorders: No Hx Family HEENT Disorders: No Hx Family Autoimmune Disorders: No Son Living Status: Still Living Hx Family Cardiac Disorders: Yes Hx Family Respiratory Disorders: No Hx Family Cancer: No Hx Family GI Disorders: No Hx Family Endocrine Disorder: No Hx Family Neuromuscular Disorders: No Hx Family Neurologic Disorders: No Hx Family HEENT Disorders: No Hx Family Autoimmune Disorders: No - Additional Family History Additional family history: No pertinent history of colon cancer or GI bleeds. Other history reviewed and not pertinent. Internal Medicine - H&P: Meds Ferrous Sulfate 325 mg PO BID 04/23/15 [History] Finasteride [Proscar] 5 mg PO QAM 04/23/15 [History] Furosemide [Lasix] 40 mg PO QAM 04/23/15 [History] Simvastatin [Zocor] 20 mg PO QPM 04/23/15 [History] Ascorbate Calcium [Vitamin C] 500 mg PO DAILY 12/04/15 [History] Multivit-Min/FA/Lycopen/Lutein [Adults 50+ Multivitamin Tablet] 1 tab PO DAILY 12/04/15 [History] Vitamin E 1,000 unit PO DAILY 12/04/15 [History] Losartan [Cozaar] 50 mg PO BID 08/04/16 [History] hydrALAZINE [HydrALAZINE] 50 mg PO Q8HR 08/04/16 [History] Acetaminophen [Tylenol] 650 mg PO Q6HR PRN #0 tablet 08/06/16 [Rx] Omeprazole [PriLOSEC] 20 mg PO BIDAC #60 cap 08/06/16 [Rx] Metoprolol [Lopressor] 50 mg PO BID #60 tablet 12/18/16 [Rx] Warfarin [Coumadin] 5 mg PO Q48H 11/07/17 [History] Warfarin [Coumadin] 7.5 mg PO Q48H 11/07/17 [History] 3 Allergy/AdvReac Type Severity Reaction Status Date / Time macadamia nut oil Allergy Anaphylaxis Verified 12/15/16 06:43 hydrocodone [From Vicodin] AdvReac Itching Verified 12/15/16 06:43 All Systems PM: A 10-system review of systems was performed and is negative for pertinent findings except as documented above in the HPI. Review of systems: 10 point review of systems is obtained and is otherwise negative other than stated in history of present illness. - Constitutional Vitals: Temp Pulse Resp BP Pulse Ox 97.8 F 70 22 130/82 98 11/07/17 07:45 11/07/17 08:44 11/07/17 08:44 11/07/17 08:44 11/07/17 08:44 Exam: Constitutional: No acute distress, Alert Psych: AAO x 3 HEENT: NCAT, EOMI Neck: supple, no JVD Cardio: Irregularly irregular with controlled rate, +s1s2, no murmurs/rubs/ gallops, no JVD Resp: clear to ascultation bilaterally, no wheezes/rales/ronchi Abd: soft, mildly distended, bs positive, no guarding rebound or rigidity, no tenderness to palpation Extremities: no clubbing/cyanosis/edema appreciated Neuro: no focal deficits appreciated Lymph: no cervical/supraclavicular adenopahty apprecitated Internal Med - H&P Results - Labs CBC & Chem 7: 11/07/17 07:59 11/07/17 07:59 Labs: Short CBC 11/07/17 Range/Units 07:59 WBC 7.4 (4.3-11.1) K/mcL Hgb 16.3 (12.9-16.9) g/dL Hct 49.9 (37.5-50.1) % Plt Count 170 (140-400) K/mcL Neutrophils # 5.2 (1.6-8.9) K/mcL BMP 11/07/17 07:59 Sodium 137 Potassium 3.7 Chloride 106 Carbon Dioxide 23 BUN 19 Creatinine 1.00 Glucose 124 H Calcium 9.7 Cardiac Enzymes 11/07/17 Range/Units 07:59 Troponin I < 0.03 (< 0.04) ng/mL Liver Function 11/07/17 Range/Units 07:59 Total Bilirubin 1.2 H (0.3-1.0) mg/dL AST 19 (13-39) Units/L ALT 21 (7-52) Units/L Alkaline Phosphatase 62 (34-104) Units/L Albumin 4.1 (3.5-5.7) g/dL - Impressions ITS Impressions Chest X-Ray 11/07/17 07:54 IMPRESSION: No acute cardiopulmonary disease. D/ / 11/07/2017 08:18:54 Tania Chandler MD / [email or web address] Interpreting Provider: Tania Chandler MD - Assessment and plan (1) Lower gastrointestinal hemorrhage Current Visit: Yes Status: Acute Assessment and plan: -Patient with bright red blood per rectum status post colonoscopy 3 days prior with 7 polyps removed -Hemoglobin initially stable at 16.3 -Large amount of blood reported by patient however this appears to be improving with the last bowel movement with just a small amount of bright red blood -Abdominal exam unremarkable; slight distention likely from colonoscopy -Hemodynamically stable -We will check abdominal x-ray for completeness -Trend hemoglobin every 6 hours -Patient has been typed and screened -Monitor on telemetry -Has been given vitamin K -Has been given IV PPI; will continue PPIs the patient takes 1 chronically, likely not of benefit for current GI hemorrhage -If hemoglobin trends down will contact Dr. Grajeda for consult and evaluation of repeat colonoscopy (2) Atrial fibrillation Current Visit: Yes Status: Acute Assessment and plan: -Chronic atrial fibrillation with controlled ventricular response -Rate is controlled -On Coumadin for anticoagulation; Coumadin will be held in light of GI bleed -Patient has been given vitamin K -At increased risk of stroke during this time this was indicated to the patient Qualifiers: Atrial fibrillation type: chronic Qualified Code(s): I48.2 - Chronic atrial fibrillation (3) CAD (coronary artery disease) Current Visit: Yes Status: Chronic Assessment and plan: -CAD with history of 1 cardiac stent; patient states he was on Plavix for several months and taken off and has been off aspirin and Plavix for several years -No chest pain Qualifiers: Coronary Disease-Associated Artery/Lesion type: [place] artery [place] vs. transplanted heart: [place] heart Associated angina: without angina Qualified Code(s): I25.10 - Atherosclerotic heart disease of [place] coronary artery without angina pectoris (4) COPD (chronic obstructive pulmonary disease) Current Visit: No Status: Chronic Assessment and plan: -Chronic -No acute exacerbation -Not on inhalers at home Qualifiers: COPD type: emphysema Emphysema type: unspecified Qualified Code(s): J43.9 - Emphysema, unspecified (5) Hypertension Current Visit: Yes Status: Chronic Assessment and plan: -Chronic -BP stable -continue home meds Qualifiers: Hypertension type: essential hypertension Qualified Code(s): I10 - Essential (primary) hypertension (6) DVT prophylaxis Current Visit: Yes Status: Acute Assessment and plan: -SCDs in light of bleeding; start chemical ppx hopefully within 24 hours if remains stable - Time Spent With Patient Total time spent is greater than 50% in coordination of care (as documented) at patient's floor/unit and/or counseling patient: Greater than 35 minutes (39 minutes)
--- NOTE | 2017-11-07 09:45 | Emergency Department Note ---
Disposition Clinical Impression: Lower gastrointestinal hemorrhage Disposition: Admitted As Inpatient Condition: Fair General Adult HPI - General Chief complaint: ED GI Bleed Stated complaint: GI Bleed Time Seen by Provider: 11/07/17 07:45 Source: patient, family Mode of arrival: ambulatory Limitations: no limitations - History of Present Illness Pain Scale: 0 - Related Data Home Medications Medication Instructions Recorded Confirmed Ferrous Sulfate 325 mg PO BID 04/23/15 11/07/17 Finasteride [Proscar] 5 mg PO QAM 04/23/15 11/07/17 Furosemide [Lasix] 40 mg PO QAM 04/23/15 11/07/17 Simvastatin [Zocor] 20 mg PO QPM 04/23/15 11/07/17 Ascorbate Calcium [Vitamin C] 500 mg PO DAILY 12/04/15 11/07/17 Multivit-Min/FA/Lycopen/Lutein 1 tab PO DAILY 12/04/15 11/07/17 [Adults 50+ Multivitamin Tablet] Vitamin E 1,000 unit PO DAILY 12/04/15 11/07/17 Losartan [Cozaar] 50 mg PO BID 08/04/16 11/07/17 hydrALAZINE [HydrALAZINE] 50 mg PO Q8HR 08/04/16 11/07/17 Warfarin [Coumadin] 5 mg PO Q48H 11/07/17 11/07/17 Warfarin [Coumadin] 7.5 mg PO Q48H 11/07/17 11/07/17 Previous Rx's Medication Instructions Recorded Acetaminophen [Tylenol] 650 mg PO Q6HR PRN #0 tablet 08/06/16 Omeprazole [PriLOSEC] 20 mg PO BIDAC #60 cap 08/06/16 Metoprolol [Lopressor] 50 mg PO BID #60 tablet 12/18/16 Allergies Allergy/AdvReac Type Severity Reaction Status Date / Time macadamia nut oil Allergy Anaphylaxis Verified 12/15/16 06:43 hydrocodone [From Vicodin] AdvReac Itching Verified 12/15/16 06:43 Past Medical History - Past Medical History Medical history: Reports: atrial fibrillation, COPD, hypertension, myocardial infarction, other Surgical history: Reports: angioplasty/stent, cholecystectomy, tonsilectomy Psychiatric history: Reports: no psych history - Social History Smoking Status: Never smoker Smokeless Tobacco Status: No Alcohol use: Reports: none Drug use: Reports: none Physical Exam - General Limitations: no limitations General appearance: alert, in no apparent distress Course Vital Signs Temperature 97.8 F 11/07/17 07:45 Pulse Rate 67 11/07/17 07:45 Respiratory Rate 16 11/07/17 07:45 Blood Pressure 159/89 11/07/17 07:45 O2 Sat by Pulse Oximetry 100 11/07/17 07:45 Temperature 97.8 F 11/07/17 07:45 Pulse Rate 85 11/07/17 09:41 Respiratory Rate 21 11/07/17 09:41 Blood Pressure 117/66 11/07/17 09:41 O2 Sat by Pulse Oximetry 96 11/07/17 09:41 Oxygen Delivery Oxygen Delivery Room Air Medical Decision Making - Lab Data Result diagrams: 11/07/17 07:59 11/07/17 07:59 Lab Results 11/07/17 11/07/17 11/07/17 Range/Units 07:59 07:59 07:59 WBC 7.4 (4.3-11.1) K/mcL RBC 5.30 (4.19-5.50) M/mcL Hgb 16.3 (12.9-16.9) g/dL Hct 49.9 (37.5-50.1) % MCV 94.2 (83.0-100.0) fL MCH 30.8 (28.0-33.3) pg MCHC 32.7 (31.6-35.5) g/dL RDW 12.7 (11.5-14.5) % Plt Count 170 (140-400) K/mcL MPV 12.5 H (9.4-12.4) fL Immature Gran % 0.4 (0-4) % Seg Neutrophils % 69.6 % Lymphocytes % 16.3 % Monocytes % 10.3 % Eosinophils % 3.1 % Basophils % 0.3 % Neutrophils # 5.2 (1.6-8.9) K/mcL Lymphocytes # 1.2 (0.6-4.6) K/mcL Monocytes # 0.8 (0.0-1.3) K/mcL Eosinophils # 0.2 (0.0-0.6) K/mcL Basophils # 0.0 (0.0-0.2) K/mcL PT 19.1 H (9.4-12.1) Seconds INR 1.7 Sodium 137 (136-145) mEq/L Potassium 3.7 (3.5-5.1) mEq/L Chloride 106 (98-107) mEq/L Carbon Dioxide 23 (23-29) mEq/L BUN 19 (8-23) mg/dL Creatinine 1.00 (0.70-1.30) mg/dL Est GFR ( Amer) > 60 (> 60) Est GFR (Non-Af Amer) > 60 (> 60) BUN/Creatinine Ratio 19 (6-26) Glucose 124 H (70-105) mg/dL Calculated Osmolality 288 (280-300) Lactic Acid (0.5-2.2) mmol/L Calcium 9.7 (8.6-10.3) mg/dL Total Bilirubin 1.2 H (0.3-1.0) mg/dL AST 19 (13-39) Units/L ALT 21 (7-52) Units/L Alkaline Phosphatase 62 (34-104) Units/L Troponin I < 0.03 (< 0.04) ng/mL Serum Total Protein 6.2 L (6.4-8.9) g/dL Albumin 4.1 (3.5-5.7) g/dL Globulin 2.1 L (2.4-3.5) g/dL Albumin/Globulin Ratio 2.0 (1.1-2.2) Blood Type Antibody Screen 11/07/17 11/07/17 Range/Units 07:59 08:52 WBC (4.3-11.1) K/mcL RBC (4.19-5.50) M/mcL Hgb (12.9-16.9) g/dL Hct (37.5-50.1) % MCV (83.0-100.0) fL MCH (28.0-33.3) pg MCHC (31.6-35.5) g/dL RDW (11.5-14.5) % Plt Count (140-400) K/mcL MPV (9.4-12.4) fL Immature Gran % (0-4) % Seg Neutrophils % % Lymphocytes % % Monocytes % % Eosinophils % % Basophils % % Neutrophils # (1.6-8.9) K/mcL Lymphocytes # (0.6-4.6) K/mcL Monocytes # (0.0-1.3) K/mcL Eosinophils # (0.0-0.6) K/mcL Basophils # (0.0-0.2) K/mcL PT (9.4-12.1) Seconds INR Sodium (136-145) mEq/L Potassium (3.5-5.1) mEq/L Chloride (98-107) mEq/L Carbon Dioxide (23-29) mEq/L BUN (8-23) mg/dL Creatinine (0.70-1.30) mg/dL Est GFR ( Amer) (> 60) Est GFR (Non-Af Amer) (> 60) BUN/Creatinine Ratio (6-26) Glucose (70-105) mg/dL Calculated Osmolality (280-300) Lactic Acid 1.9 (0.5-2.2) mmol/L Calcium (8.6-10.3) mg/dL Total Bilirubin (0.3-1.0) mg/dL AST (13-39) Units/L ALT (7-52) Units/L Alkaline Phosphatase (34-104) Units/L Troponin I (< 0.04) ng/mL Serum Total Protein (6.4-8.9) g/dL Albumin (3.5-5.7) g/dL Globulin (2.4-3.5) g/dL Albumin/Globulin Ratio (1.1-2.2) Blood Type O POSITIVE Antibody Screen NEGATIVE Attestation Statement - Attestation Attestation: I examined this patient and my medical decision-making was reviewed with the Resident Physician. I agree with the documented findings, disposition and treatment plan as described except to the extent set forth below. Bleeding started today, 4 days after colonoscopy with polypectomy 7. Restarted his Coumadin the evening after the procedure, on Coumadin for A. fib. Hemodynamically normal. Has had another bloody bowel movement here in the ED. Hemoglobin normal. Dr. Bowers spoke with Dr. schreiber, pt has been accepted for admission.
[2017-11-07 10:04] LABS: Basophils % 0.2 %; Eosinophils # 0.1 K/mcL (0.0-0.6); Eosinophils % 1.6 %; Hematocrit 50.8 % (37.5-50.1); Hemoglobin 16.7 g/dL (12.9-16.9); Immature Granulocytes % 0.2 % (0-4); Lymphocytes # 0.9 K/mcL (0.6-4.6); Lymphocytes % 11.6 %; Mean Corpuscular HGB Conc 32.9 g/dL (31.6-35.5); Mean Corpuscular Hemoglobin 30.6 pg (28.0-33.3); Mean Corpuscular Volume 93.2 fL (83.0-100.0); Mean Platelet Volume 12.6 fL (9.4-12.4); Monocytes # 0.6 K/mcL (0.0-1.3); Monocytes % 7.5 %; Neutrophils # 6.3 K/mcL (1.6-8.9); Platelet Count 166 K/mcL (140-400); Red Blood Count 5.45 M/mcL (4.19-5.50); Red Cell Distribution Width 12.7 % (11.5-14.5); Segmented Neutrophils % 78.9 %
[2017-11-07 16:09] LABS: Basophils % 0.1 %; Eosinophils # 0.1 K/mcL (0.0-0.6); Eosinophils % 1.8 %; Hematocrit 48.3 % (37.5-50.1); Hemoglobin 16.1 g/dL (12.9-16.9); Immature Granulocytes % 0.5 % (0-4); Lymphocytes # 1.4 K/mcL (0.6-4.6); Lymphocytes % 18.4 %; Mean Corpuscular HGB Conc 33.3 g/dL (31.6-35.5); Mean Corpuscular Hemoglobin 30.8 pg (28.0-33.3); Mean Corpuscular Volume 92.5 fL (83.0-100.0); Mean Platelet Volume 12.3 fL (9.4-12.4); Monocytes # 0.8 K/mcL (0.0-1.3); Monocytes % 10.9 %; Neutrophils # 5.3 K/mcL (1.6-8.9); Platelet Count 166 K/mcL (140-400); Red Blood Count 5.22 M/mcL (4.19-5.50); Red Cell Distribution Width 13.1 % (11.5-14.5); Segmented Neutrophils % 68.3 %
[2017-11-07] MEDS: Pantoprazole 40 MG VIAL IVP SCH (17:14)
[2017-11-07] MEDS: hydrALAZINE 25 MG TABLET PO SCH (17:14)
[2017-11-07 22:15] LABS: Basophils % 0.3 %; Eosinophils # 0.2 K/mcL (0.0-0.6); Eosinophils % 1.8 %; Hematocrit 46.3 % (37.5-50.1); Hemoglobin 15.2 g/dL (12.9-16.9); Immature Granulocytes % 0.5 % (0-4); Lymphocytes # 1.2 K/mcL (0.6-4.6); Lymphocytes % 12.6 %; Mean Corpuscular HGB Conc 32.8 g/dL (31.6-35.5); Mean Corpuscular Hemoglobin 30.6 pg (28.0-33.3); Mean Corpuscular Volume 93.3 fL (83.0-100.0); Mean Platelet Volume 11.9 fL (9.4-12.4); Monocytes % 10.7 %; Neutrophils # 7.1 K/mcL (1.6-8.9); Platelet Count 163 K/mcL (140-400); Red Blood Count 4.96 M/mcL (4.19-5.50); Red Cell Distribution Width 12.9 % (11.5-14.5); Segmented Neutrophils % 74.1 %
[2017-11-08] MEDS: hydrALAZINE 25 MG TABLET PO SCH ×3 (00:43→16:50)
--- NOTE | 2017-11-08 00:53 | Electrocardiograph Report ---
[facility] Test Date: 2017-11-07 Pat Name: Torrey Rangel Department: [id number] Room: 3A43 Gender: M Take Away Attendant: : 1935 Requested By: Ferny Bowers Order Number: [id number] Reading MD: Jack Thrasher Measurements Intervals [place] Rate: 74 P: MD: QRS: 77 QRSD: 165 T: 5 QT: 441 QTc: 490 Interpretive Statements Atrial fibrillation Right bundle branch block Electronically Signed On 11-08-2017 0:51:34 EDT by Jack Thrasher
[2017-11-08] MEDS: Pantoprazole 40 MG VIAL IVP SCH ×2 (05:29→16:50)
[2017-11-08 05:36] LABS: Basophils % 0.2 %; Eosinophils # 0.2 K/mcL (0.0-0.6); Eosinophils % 2.6 %; Hematocrit 44.2 % (37.5-50.1); Hemoglobin 14.6 g/dL (12.9-16.9); Immature Granulocytes % 0.5 % (0-4); Lymphocytes # 1.4 K/mcL (0.6-4.6); Lymphocytes % 16.8 %; Mean Corpuscular Hemoglobin 31.1 pg (28.0-33.3); Mean Corpuscular Volume 94.2 fL (83.0-100.0); Mean Platelet Volume 12.6 fL (9.4-12.4); Monocytes # 0.8 K/mcL (0.0-1.3); Monocytes % 9.8 %; Neutrophils # 5.7 K/mcL (1.6-8.9); Platelet Count 158 K/mcL (140-400); Red Blood Count 4.69 M/mcL (4.19-5.50); Segmented Neutrophils % 70.1 %
[2017-11-08 05:40] LABS: INR 1.4; Prothrombin Time 15.7 Seconds (9.4-12.1)
[2017-11-08 05:49] LABS: BUN/Creatinine Ratio 18 (6-26); Blood Urea Nitrogen 18 mg/dL (8-23); Calcium 9.4 mg/dL (8.6-10.3); Carbon Dioxide 27 mEq/L (23-29); Chloride 105 mEq/L (98-107); Glucose 102 mg/dL (70-105); Magnesium 1.9 mg/dL (1.6-2.6); Osmolality,Calculated 288 (280-300); Phosphorous 2.8 mg/dL (2.7-4.5); Potassium 3.8 mEq/L (3.5-5.1); Sodium 138 mEq/L (136-145); eGFR For Non-African Americans > 60 (> 60)
[2017-11-08] MEDS: Finasteride 5 MG TABLET PO SCH (08:10)
[2017-11-08] MEDS: Furosemide 40 MG TABLET PO SCH (08:10)
--- NOTE | 2017-11-08 09:29 | Internal Med Progress Note ---
<Brock Gutiérrez - Last Filed: 11/08/17 13:51> Hospitalist Progress Note - Encounter Date of Encounter: 11/08/17 Time of Encounter: 09:00 - Subjective Interval History: Patient had another bloody bowel movement this morning. He reports BM was bright red. Denies any abdominal pain, headaches, vision changes, dizziness, CP , worsening SOB. Tolerating clear diet without nausea, vomiting. Denies fever, chills, palpitations. He has been on Coumadin for many years for A. fib, CAD with OR 7 years ago and 1 stent 3 years ago. - Exam Vitals: Temp Pulse Resp BP Pulse Ox 97.9 F 86 16 112/57 96 11/08/17 05:46 11/08/17 05:46 11/08/17 05:46 11/08/17 05:46 11/08/17 05:46 Exam: Constitutional: NAD Psych: AOx3 HEENT: NCAT, EOMI Neck: supple, no JVD Cardio: Irregularly irregular with controlled rate, +s1s2, no murmurs/rubs/ gallops, no JVD Resp: clear to ascultation bilaterally, no wheezes/rales/ronchi Abd: soft, mildly distended, bs positive, no guarding rebound or rigidity, no tenderness to palpation Extremities: no clubbing/cyanosis/edema appreciated Neuro: no focal deficits appreciated Lymph: no cervical/supraclavicular adenopahty apprecitated - Assessment and Plan (1) GI bleed Current Visit: Yes Status: Acute Assessment and Plan: s/p colonoscopy with polyp removal day#5. Patient has already received dose of vitamin K and PPI. Patient with 7 episodes of bright red blood BMs in the last 72 hours. He had colonoscopy on Saturday and noticed bleeding 2 days afterwards. Hemoglobin stable. No abdominal pain. No systemic signs and he is hemodynamically stable. Abdominal XR unremarkable. GIB likely secondary to colonoscopy and restarting Coumadin for chronic Atrial fibrillation. We will continue to hold coumadin as GIB risk outweights stroke risk. Will continue to monitor BMs for melena and H/H. Continue PPI for GI prophylaxis. I expect GIB to resolve with supportive care. Likely discharge over the weekend. If patient decompensates, GI consult for evaluation for possible repeat colonoscopy. (2) Atrial fibrillation Current Visit: Yes Status: Acute Assessment and Plan: History of A. fib, currently stable. Subtherapeutic INR = 1.4 Patient has active GIB, we will hold Coumadin and ASA for now as current risk of GIB is more significant than stroke risk. Risks and benefits were discussed with patient and he agrees with treatment plan. Will monitor INR daily. (3) Hypertension Current Visit: Yes Status: Chronic Assessment and Plan: Hypertension is well controlled. Continue with Losartan and Metoprolol and hydralazine (4) CAD (coronary artery disease) Current Visit: Yes Status: Chronic Assessment and Plan: Continue with Lipitor, BB. Hold aspirin and warfarin in the setting of active GI bleed. (5) Chronic atrial fibrillation Current Visit: No Status: Acute Assessment and Plan: INR is subtherapeutic, but hold warfarin in the setting of GIB. Monitor PT/INR (6) Sinoatrial arrest with nette/ventricular escape Current Visit: No Status: Acute Assessment and Plan: stable. (7) COPD (chronic obstructive pulmonary disease) Current Visit: No Status: Chronic Assessment and Plan: Stable. (8) Hyperlipidemia Current Visit: No Status: Chronic Assessment and Plan: Lipitor. DVT Prophylaxis: SCDs - Time Spent with Patient Total time spent is greater than 50% in coordination of care (as documented) at patient's floor/unit and/or counseling patient: Greater than 35 minutes Plan of Care Discussed with: patient Internal Medicine: Result - Labs CBC & Chem 7: 11/08/17 09:20 11/08/17 04:08 Labs: Short CBC 11/07/17 11/07/17 11/07/17 Range/Units 09:46 15:38 22:06 WBC 8.0 7.7 9.6 (4.3-11.1) K/mcL Hgb 16.7 16.1 15.2 (12.9-16.9) g/dL Hct 50.8 H 48.3 46.3 (37.5-50.1) % Plt Count 166 166 163 (140-400) K/mcL Neutrophils # 6.3 5.3 7.1 (1.6-8.9) K/mcL 11/08/17 Range/Units 04:08 WBC 8.2 (4.3-11.1) K/mcL Hgb 14.6 (12.9-16.9) g/dL Hct 44.2 (37.5-50.1) % Plt Count 158 (140-400) K/mcL Neutrophils # 5.7 (1.6-8.9) K/mcL BMP 11/08/17 04:08 Sodium 138 Potassium 3.8 Chloride 105 Carbon Dioxide 27 BUN 18 Creatinine 0.99 Glucose 102 Calcium 9.4 - ABG Interpretation ABG results: PT/INR, D-dimer PT 15.7 Seconds (9.4-12.1) H 11/08/17 04:08 Interpretation: other (Atrial fib) - EKG Interpretation EKG Interpreted by Myself: Yes - Prior EKG Data Prior EKG available for review: yes When compared to previous EKG: there is no significant change EKG comments: Chronic A. Fib 11/08/17 13:50 - Impressions Impressions Abdomen X-Ray 11/07/17 10:02 IMPRESSION: 1. Bowel gas pattern is nonspecific and nonobstructive. 2. No radiographic evidence of intra-abdominal free air. 3. Scattered air-fluid levels within nondilated colon. D/ / 11/07/2017 11:07:53 López Robert MD / jeni Interpreting Provider: López Robert MD Consult Discharge Plan - Plan Referrals: Twan Luong Jr, MD [Primary Care Provider] - <Serafin Altman - Last Filed: 11/08/17 14:15> Hospitalist Progress Note - Encounter Date of Encounter: 11/08/17 - Exam Vitals: Temp Pulse Resp BP Pulse Ox 98 F 80 18 103/60 97 11/08/17 10:46 11/08/17 10:46 11/08/17 10:46 11/08/17 10:46 11/08/17 10:46 - Assessment and Plan (1) Hypertension Current Visit: Yes Status: Chronic (2) CAD (coronary artery disease) Current Visit: Yes Status: Chronic (3) Atrial fibrillation Current Visit: Yes Status: Acute (4) COPD (chronic obstructive pulmonary disease) Current Visit: No Status: Chronic (5) DVT prophylaxis Current Visit: Yes Status: Acute (6) Lower gastrointestinal hemorrhage Current Visit: Yes Status: Acute - Time Spent with Patient Total time spent is greater than 50% in coordination of care (as documented) at patient's floor/unit and/or counseling patient: Internal Medicine: Result - Labs CBC & Chem 7: 11/08/17 09:20 11/08/17 04:08 Labs: Short CBC 11/07/17 11/07/17 11/08/17 Range/Units 15:38 22:06 04:08 WBC 7.7 9.6 8.2 (4.3-11.1) K/mcL Hgb 16.1 15.2 14.6 (12.9-16.9) g/dL Hct 48.3 46.3 44.2 (37.5-50.1) % Plt Count 166 163 158 (140-400) K/mcL Neutrophils # 5.3 7.1 5.7 (1.6-8.9) K/mcL 11/08/17 Range/Units 09:20 WBC 9.1 (4.3-11.1) K/mcL Hgb 14.2 (12.9-16.9) g/dL Hct 43.0 (37.5-50.1) % Plt Count 172 (140-400) K/mcL Neutrophils # 7.0 (1.6-8.9) K/mcL BMP 11/08/17 04:08 Sodium 138 Potassium 3.8 Chloride 105 Carbon Dioxide 27 BUN 18 Creatinine 0.99 Glucose 102 Calcium 9.4 - ABG Interpretation ABG results: PT/INR, D-dimer PT 15.7 Seconds (9.4-12.1) H 11/08/17 04:08 - Impressions Impressions Abdomen X-Ray 11/07/17 10:02 IMPRESSION: 1. Bowel gas pattern is nonspecific and nonobstructive. 2. No radiographic evidence of intra-abdominal free air. 3. Scattered air-fluid levels within nondilated colon. D/ / 11/07/2017 11:07:53 López Robert MD / jeni Interpreting Provider: López Robert MD - Attending Attestation I perfomred an independent interview and exam of this pt. I agree with the findings, assessment and plan of Dr. Gutiérrez, family practice resident. Continue to monitor Hb. Vitals stable. Suspect bleeding from recent polypectomy. Coumadin on hold. I did discuss with the patient the fact that being off Coumadin does confer a slight increased risk of stroke, due to his atrial fibrillation. Patient voiced understanding of this. Gen: NAD, AAOx3 Skin warm ad dry, no pallor Lung ctab Ht IRR Abd soft +BS, NT, protuberant Ext no edema <Brock Gutiérrez - Last Filed: 11/08/17 13:51> (1) GI bleed Qualifiers: GI bleed type/associated pathology: melena Qualified Code(s): K92.1 - Melena (2) Atrial fibrillation Qualifiers: Atrial fibrillation type: chronic Qualified Code(s): I48.2 - Chronic atrial fibrillation (3) Hypertension Qualifiers: Hypertension type: essential hypertension Qualified Code(s): I10 - Essential (primary) hypertension (4) CAD (coronary artery disease) Qualifiers: Coronary Disease-Associated Artery/Lesion type: [place] artery [place] vs. transplanted heart: [place] heart Associated angina: without angina Qualified Code(s): I25.10 - Atherosclerotic heart disease of [place] coronary artery without angina pectoris (7) COPD (chronic obstructive pulmonary disease) Qualifiers: COPD type: emphysema Emphysema type: unspecified Qualified Code(s): J43.9 - Emphysema, unspecified (8) Hyperlipidemia Qualifiers: Hyperlipidemia type: unspecified Qualified Code(s): E78.5 - Hyperlipidemia, unspecified <Serafin Altman - Last Filed: 11/08/17 14:15> (1) Hypertension Qualifiers: Hypertension type: essential hypertension Qualified Code(s): I10 - Essential (primary) hypertension (2) CAD (coronary artery disease) Qualifiers: Coronary Disease-Associated Artery/Lesion type: [place] artery [place] vs. transplanted heart: [place] heart Associated angina: without angina Qualified Code(s): I25.10 - Atherosclerotic heart disease of [place] coronary artery without angina pectoris (3) Atrial fibrillation Qualifiers: Atrial fibrillation type: chronic Qualified Code(s): I48.2 - Chronic atrial fibrillation (4) COPD (chronic obstructive pulmonary disease) Qualifiers: COPD type: emphysema Emphysema type: unspecified Qualified Code(s): J43.9 - Emphysema, unspecified
[2017-11-08 09:33] LABS: Basophils % 0.2 %; Eosinophils # 0.2 K/mcL (0.0-0.6); Eosinophils % 1.8 %; Hemoglobin 14.2 g/dL (12.9-16.9); Immature Granulocytes % 0.4 % (0-4); Lymphocytes % 11.4 %; Mean Corpuscular Hemoglobin 30.9 pg (28.0-33.3); Mean Corpuscular Volume 93.5 fL (83.0-100.0); Mean Platelet Volume 12.3 fL (9.4-12.4); Monocytes # 0.8 K/mcL (0.0-1.3); Monocytes % 8.7 %; Platelet Count 172 K/mcL (140-400); Segmented Neutrophils % 77.5 %
[2017-11-09] MEDS: hydrALAZINE 25 MG TABLET PO SCH ×4 (00:26→23:58)
[2017-11-09 04:13] LABS: Hematocrit 42.7 % (37.5-50.1); Hemoglobin 13.9 g/dL (12.9-16.9)
[2017-11-09 04:17] LABS: INR 1.2; Prothrombin Time 13.9 Seconds (9.4-12.1)
[2017-11-09] MEDS: Pantoprazole 40 MG VIAL IVP SCH ×2 (05:14→17:06)
[2017-11-09] MEDS: Finasteride 5 MG TABLET PO SCH (09:19)
[2017-11-09] MEDS: Furosemide 40 MG TABLET PO SCH (09:19)
--- NOTE | 2017-11-09 10:28 | Internal Med Progress Note ---
Hospitalist Progress Note - Encounter Date of Encounter: 11/09/17 Time of Encounter: 09:15 - Subjective Interval History: Mr. Rangel is a 82 year old male with past history of atrial fibrillation and presents to the emergency department chief complaint of bright red blood per rectum. The patient states that on Saturday of this week the patient had colonoscopy 07 polyps removed as a follow-up to a colonoscopy 3 years ago which she had 1 polyp removed. The patient was told to resume his Coumadin on Saturday evening which she did. The patient first noticed bright red blood per rectum around midnight last night and had another episode around 6 PM and then presented to the emergency department. Since then he has had 2 additional episodes in the emergency department 1 with a large volume of bright red blood and 1 with a very small volume per patient. Patient states that he has had a diverticular bleed in the past that did require blood transfusion however he states that he currently feels okay. The patient admits to mild abdominal bloating, denies any chest pain, shortness of breath, nausea, palpitations, vomiting, lightheadedness, dizziness, blurry vision, double vision. Patient has been afebrile. In the emergency department initial hemoglobin was 16.3. This is being repeated now. Patient's vital signs have been stable. Emergency department provider spoke to Dr. Grajeda who performed colonoscopy and patient was started on protonic and given 10 mg of vitamin K. INR on admission was 1.7. Patient will be placed in observation for serial CBCs and close monitoring. 11/09: Patient had 4 bloody bowel movements yesterday. Today he has had small streaks of blood. Still feels like his abdomen is bloated but is improving as he is passing lots of gas. He has no nausea or vomiting. No fevers or chills. No chest pain or shortness of breath. His blood pressure was noted and normal this morning. His hemoglobin has remained stable. Today it is 13.9. On admission it was 15.2. - Exam Vitals: Temp Pulse Resp BP Pulse Ox 98.3 F 85 16 100/66 93 11/09/17 06:58 11/09/17 06:58 11/09/17 06:58 11/09/17 06:58 11/09/17 06:58 Exam: Constitutional: NAD, pleasant and conversant Psych: AOx3 HEENT: NCAT, EOMI Neck: supple, no JVD Cardio: Irregularly irregular with controlled rate, +s1s2, no murmurs/rubs/ gallops, no JVD Resp: clear to ascultation bilaterally, no wheezes/rales/ronchi Abd: soft, mildly distended, bs positive, no guarding rebound or rigidity, no tenderness to palpation Extremities: no clubbing/cyanosis/edema appreciated Neuro: no focal deficits appreciated Lymph: no cervical/supraclavicular adenopahty apprecitated - Assessment and Plan (1) Lower gastrointestinal hemorrhage Current Visit: Yes Status: Acute Assessment and Plan: -Patient with bright red blood per rectum status post colonoscopy 3 days prior with 7 polyps removed -Hemoglobin initially stable at 16.3 -Large amount of blood reported by patient however this appears to be improving with the last bowel movement with just a small amount of bright red blood -Abdominal exam unremarkable; slight distention likely from colonoscopy -Hemodynamically stable -We will check abdominal x-ray for completeness -Trend hemoglobin every 6 hours -Patient has been typed and screened -Monitor on telemetry -Has been given vitamin K -Has been given IV PPI; will continue PPIs the patient takes 1 chronically, likely not of benefit for current GI hemorrhage -If hemoglobin trends down will contact Dr. Grajeda for consult and evaluation of repeat colonoscopy 11/09: Still having some small amounts of blood per rectum but I suspect his bleeding is slowing down significantly. Hemoglobin is stable. Blood pressure was on [place] today. Discussed with patient in detail. Due to ongoing bleeding watch him in the hospital 1 additional day. His Coumadin is on hold. Last INR was 1.2. Will continue to remain off Coumadin in the short-term. Suspect bleeding is from recent polypectomy. (2) Hypertension Current Visit: Yes Status: Chronic Assessment and Plan: -Chronic -BP stable, was on [place] this morning -continue home meds. I will hold his Lasix for now. (3) CAD (coronary artery disease) Current Visit: Yes Status: Chronic Assessment and Plan: -CAD with history of 1 cardiac stent; patient states he was on Plavix for several months and taken off and has been off aspirin and Plavix for several years -No chest pain 11/09: Stable no angina (4) Atrial fibrillation Current Visit: Yes Status: Acute Assessment and Plan: -Chronic atrial fibrillation with controlled ventricular response -Rate is controlled -On Coumadin for anticoagulation; Coumadin will be held in light of GI bleed -Patient has been given vitamin K -At increased risk of stroke during this time this was indicated to the patient 11/09: Remains off Coumadin. I did discuss with him the increased risk of stroke off Coumadin and he understands. (5) COPD (chronic obstructive pulmonary disease) Current Visit: No Status: Chronic Assessment and Plan: -Chronic -No acute exacerbation -Not on inhalers at home 11/09: Stable, no exacerbation (6) DVT prophylaxis Current Visit: Yes Status: Acute Assessment and Plan: -SCDs in light of bleeding; start chemical ppx hopefully within 24 hours if remains stable - Time Spent with Patient Total time spent is greater than 50% in coordination of care (as documented) at patient's floor/unit and/or counseling patient: 25 - 35 minutes Internal Medicine: Result - Labs CBC & Chem 7: 11/09/17 04:02 11/08/17 04:08 Labs: Short CBC 11/09/17 Range/Units 04:02 Hgb 13.9 (12.9-16.9) g/dL Hct 42.7 (37.5-50.1) % - ABG Interpretation ABG results: PT/INR, D-dimer PT 13.9 Seconds (9.4-12.1) H 11/09/17 04:02 Consult Discharge Plan - Plan Referrals: Twan Luong Jr, MD [Primary Care Provider] - (2) Hypertension Qualifiers: Hypertension type: essential hypertension Qualified Code(s): I10 - Essential (primary) hypertension (3) CAD (coronary artery disease) Qualifiers: Coronary Disease-Associated Artery/Lesion type: [place] artery [place] vs. transplanted heart: [place] heart Associated angina: without angina Qualified Code(s): I25.10 - Atherosclerotic heart disease of [place] coronary artery without angina pectoris (4) Atrial fibrillation Qualifiers: Atrial fibrillation type: chronic Qualified Code(s): I48.2 - Chronic atrial fibrillation (5) COPD (chronic obstructive pulmonary disease) Qualifiers: COPD type: emphysema Emphysema type: unspecified Qualified Code(s): J43.9 - Emphysema, unspecified
[2017-11-10] MEDS: Pantoprazole 40 MG VIAL IVP SCH (06:22)
[2017-11-10 06:34] LABS: Basophils % 0.3 %; Eosinophils # 0.1 K/mcL (0.0-0.6); Eosinophils % 1.4 %; Hematocrit 40.2 % (37.5-50.1); Hemoglobin 13.3 g/dL (12.9-16.9); Immature Granulocytes % 0.6 % (0-4); Lymphocytes # 1.3 K/mcL (0.6-4.6); Mean Corpuscular HGB Conc 33.1 g/dL (31.6-35.5); Mean Corpuscular Hemoglobin 30.6 pg (28.0-33.3); Mean Corpuscular Volume 92.6 fL (83.0-100.0); Mean Platelet Volume 12.4 fL (9.4-12.4); Monocytes # 0.9 K/mcL (0.0-1.3); Monocytes % 9.9 %; Neutrophils # 6.7 K/mcL (1.6-8.9); Platelet Count 160 K/mcL (140-400); Red Blood Count 4.34 M/mcL (4.19-5.50); Red Cell Distribution Width 12.7 % (11.5-14.5); Segmented Neutrophils % 73.8 %
[2017-11-10] MEDS: Finasteride 5 MG TABLET PO SCH (09:23)
[2017-11-10] MEDS: hydrALAZINE 25 MG TABLET PO SCH (09:23)
--- NOTE | 2017-11-10 09:33 | Discharge Summary ---
- NOTES TO OUTPATIENT PROVIDER Notes to Outpatient Provider: Patient had bleeding status post polypectomy. This is resolved. He remains off Coumadin for the next several days but will have a repeat CBC in 2-3 days. If hemoglobin is stable can consider restarting Coumadin. Date of Encounter: 11/10/17 Time of Encounter: 08:30 - Discharge Diagnosis (1) Lower gastrointestinal hemorrhage Priority: Primary Status: Acute (2) Hypertension Priority: Secondary Status: Chronic Qualifiers: Hypertension type: essential hypertension Qualified Code(s): I10 - Essential (primary) hypertension (3) CAD (coronary artery disease) Priority: Secondary Status: Chronic Qualifiers: Coronary Disease-Associated Artery/Lesion type: [place] artery [place] vs. transplanted heart: [place] heart Associated angina: without angina Qualified Code(s): I25.10 - Atherosclerotic heart disease of [place] coronary artery without angina pectoris (4) Atrial fibrillation Priority: Secondary Status: Acute Qualifiers: Atrial fibrillation type: chronic Qualified Code(s): I48.2 - Chronic atrial fibrillation (5) COPD (chronic obstructive pulmonary disease) Priority: Secondary Status: Chronic Qualifiers: COPD type: emphysema Emphysema type: unspecified Qualified Code(s): J43.9 - Emphysema, unspecified (6) DVT prophylaxis Priority: Secondary Status: Acute Hospital course: Mr. Rangel is a 82 year old male with past history of atrial fibrillation and presents to the emergency department chief complaint of bright red blood per rectum. The patient states that on Saturday of this week the patient had colonoscopy 07 polyps removed as a follow-up to a colonoscopy 3 years ago which she had 1 polyp removed. The patient was told to resume his Coumadin on Saturday evening which she did. The patient first noticed bright red blood per rectum around midnight last night and had another episode around 6 PM and then presented to the emergency department. Since then he has had 2 additional episodes in the emergency department 1 with a large volume of bright red blood and 1 with a very small volume per patient. Patient states that he has had a diverticular bleed in the past that did require blood transfusion however he states that he currently feels okay. The patient admits to mild abdominal bloating, denies any chest pain, shortness of breath, nausea, palpitations, vomiting, lightheadedness, dizziness, blurry vision, double vision. Patient has been afebrile. In the emergency department initial hemoglobin was 16.3. This is being repeated now. Patient's vital signs have been stable. Emergency department provider spoke to Dr. Grajeda who performed colonoscopy and patient was started on protonic and given 10 mg of vitamin K. INR on admission was 1.7. Patient will be placed in observation for serial CBCs and close monitoring. 11/09: Patient had 4 bloody bowel movements yesterday. Today he has had small streaks of blood. Still feels like his abdomen is bloated but is improving as he is passing lots of gas. He has no nausea or vomiting. No fevers or chills. No chest pain or shortness of breath. His blood pressure was noted and normal this morning. His hemoglobin has remained stable. Today it is 13.9. On admission it was 15.2. 11/09: Patient had resolution of his lower GI bleeding. His hemoglobin on discharge was stable at 13.3. He is doing well. He remains off Coumadin and the plan is to get a repeat CBC in 2-3 days, and then at the discretion of his primary care provider he can restart Coumadin. We did again discuss the fact that being off Coumadin does confer an increased risk of stroke. Patient is stable for discharge. Discharge discussed with: patient - Time Spent with Patient Total time spent providing and/or coordinating discharge services: Less than 30 minutes - Discharge Medications Home Medications: Ferrous Sulfate 325 mg PO BID 04/23/15 [History] Finasteride [Proscar] 5 mg PO QAM 04/23/15 [History] Furosemide [Lasix] 40 mg PO QAM 04/23/15 [History] Simvastatin [Zocor] 20 mg PO QPM 04/23/15 [History] Ascorbate Calcium [Vitamin C] 500 mg PO DAILY 12/04/15 [History] Multivit-Min/FA/Lycopen/Lutein [Adults 50+ Multivitamin Tablet] 1 tab PO DAILY 12/04/15 [History] Vitamin E 1,000 unit PO DAILY 12/04/15 [History] Losartan [Cozaar] 50 mg PO BID 08/04/16 [History] hydrALAZINE [HydrALAZINE] 50 mg PO Q8HR 08/04/16 [History] Acetaminophen [Tylenol] 650 mg PO Q6HR PRN #0 tablet 08/06/16 [Rx] Omeprazole [PriLOSEC] 20 mg PO BIDAC #60 cap 08/06/16 [Rx] Metoprolol [Lopressor] 50 mg PO BID #60 tablet 12/18/16 [Rx] Warfarin [Coumadin] 5 mg PO Q48H 11/07/17 [History] Warfarin [Coumadin] 7.5 mg PO Q48H 11/07/17 [History] Allergies/Adverse Reactions: 3 Allergy/AdvReac Type Severity Reaction Status Date / Time macadamia nut oil Allergy Anaphylaxis Verified 12/15/16 06:43 hydrocodone [From Vicodin] AdvReac Itching Verified 12/15/16 06:43 Date of admission: 11/07/17 09:40 Primary care physician: Twan Luong Jr, MD Discharging clinician: Serafin Altman Anticipated date of discharge: 11/10/17 - Constitutional Vitals: Temp Pulse Resp BP Pulse Ox 97.5 F L 82 15 135/78 97 11/10/17 05:14 11/10/17 05:14 11/10/17 05:14 11/10/17 05:14 11/10/17 05:14 Exam: Constitutional: NAD, pleasant and conversant Psych: AOx3 HEENT: NCAT, EOMI Neck: supple, no JVD Cardio: Irregularly irregular with controlled rate, +s1s2, no murmurs/rubs/ gallops, no JVD Resp: clear to ascultation bilaterally, no wheezes/rales/ronchi Abd: soft, mildly distended, bs positive, no guarding rebound or rigidity, no tenderness to palpation Extremities: no clubbing/cyanosis/edema appreciated Neuro: no focal deficits appreciated Lymph: no cervical/supraclavicular adenopahty apprecitated - Patient Status Disposition: Home, Self-Care Condition: Fair Overall status at discharge: patient is back to baseline - Discharge Instructions Follow Up With: Twan Luong Jr, MD [Primary Care Provider] -
[2017-11-10 10:07] VITALS: BP 160/99
== END 2017-11-10 11:17 | disposition home or self-care (01) ==
LOC: 3ANU 07:37 → EMEROOARM 07:37 → 3ANU 10:30
PROVIDERS: ADMIT Internal Medicine; ATTEND Internal Medicine

== ENCOUNTER 2018-01-10 03:21 | Observation (INO) ==
[2018-01-10] MEDS ORDERED: Aspirin 325 MG TABLET PO ONE (03:58)
[2018-01-10] MEDS ORDERED: Nitroglycerin 0.4 MG TAB.SUBL SL PRN (03:58)
[2018-01-10 04:09] LABS: Basophils % 0.1 %; Eosinophils # 0.1 K/mcL (0.0-0.6); Eosinophils % 1.3 %; Hematocrit 52.7 % (37.5-50.1); Hemoglobin 16.9 g/dL (12.9-16.9); Immature Granulocytes % 0.4 % (0-4); Lymphocytes # 1.4 K/mcL (0.6-4.6); Lymphocytes % 20.5 %; Mean Corpuscular HGB Conc 32.1 g/dL (31.6-35.5); Mean Corpuscular Hemoglobin 29.4 pg (28.0-33.3); Mean Corpuscular Volume 91.8 fL (83.0-100.0); Mean Platelet Volume 12.8 fL (9.4-12.4); Monocytes # 0.7 K/mcL (0.0-1.3); Monocytes % 10.2 %; Neutrophils # 4.6 K/mcL (1.6-8.9); Platelet Count 196 K/mcL (140-400); Red Blood Count 5.74 M/mcL (4.19-5.50); Red Cell Distribution Width 12.7 % (11.5-14.5); Segmented Neutrophils % 67.5 %
[2018-01-10 04:16] LABS: INR 2.7; Prothrombin Time 30.8 Seconds (9.4-12.1)
--- NOTE | 2018-01-10 04:25 | Emergency Department Note ---
Disposition Clinical Impression: Chest pain Qualifiers: Chest pain type: unspecified Qualified Code(s): R07.9 - Chest pain, unspecified Disposition: Admitted As Inpatient Condition: Good Time of Disposition: 04:45 General Adult HPI - General Chief complaint: ED Chest Pain Stated complaint: chest pain Time Seen by Provider: 01/10/18 03:33 Source: patient Mode of arrival: ambulatory Limitations: no limitations Nursing Notes Reviewed: Yes Vital Signs Reviewed: Yes - History of Present Illness HPI Narrative: 82-year-old male with significant past medical history of previous stent placement, COPD presenting to the emergency department with chief complaint of substernal chest pain. Patient states he woke up a crushing substernal chest pain radiating across his chest causing him nausea and diaphoresis. Patient states that felt exactly like his previous [place]. Patient denies any recent illnesses, fevers. He has had increased shortness of breath over the past few months and has been following a pulmonology as an outpatient. Patient did not take any medications prior to arrival. Patient does state he is currently on Coumadin. Pain Scale: 6 - Related Data Home Medications Medication Instructions Recorded Confirmed Ferrous Sulfate 325 mg PO BID 04/23/15 11/07/17 Finasteride [Proscar] 5 mg PO QAM 04/23/15 11/07/17 Furosemide [Lasix] 40 mg PO QAM 04/23/15 11/07/17 Simvastatin [Zocor] 20 mg PO QPM 04/23/15 11/07/17 Ascorbate Calcium [Vitamin C] 500 mg PO DAILY 12/04/15 11/07/17 Multivit-Min/FA/Lycopen/Lutein 1 tab PO DAILY 12/04/15 11/07/17 [Adults 50+ Multivitamin Tablet] Vitamin E 1,000 unit PO DAILY 12/04/15 11/07/17 Losartan [Cozaar] 50 mg PO BID 08/04/16 11/07/17 hydrALAZINE [HydrALAZINE] 50 mg PO Q8HR 08/04/16 11/07/17 Previous Rx's Medication Instructions Recorded Acetaminophen [Tylenol] 650 mg PO Q6HR PRN #0 tablet 08/06/16 Omeprazole [PriLOSEC] 20 mg PO BIDAC #60 cap 08/06/16 Metoprolol [Lopressor] 50 mg PO BID #60 tablet 12/18/16 Acetaminophen [Tylenol] 650 mg PO Q6HR PRN tablet 11/10/17 Allergies Allergy/AdvReac Type Severity Reaction Status Date / Time macadamia nut oil Allergy Anaphylaxis Verified 12/15/16 06:43 hydrocodone [From Vicodin] AdvReac Itching Verified 12/15/16 06:43 All systems ED: reviewed and negative except as stated. Constitutional: Denies: fever, chills, weakness Eyes: Reports: as per HPI ENT ED: Reports: as per HPI Cardiovascular: Reports: chest pain, dyspnea on exertion Respiratory: Reports: dyspnea. Denies: cough, wheezes, hemoptysis Gastrointestinal: Reports: nausea. Denies: abdominal pain Genitourinary: Reports: as per HPI Musculoskeletal: Reports: as per HPI Integumentary: Reports: as per HPI Neurological: Denies: weakness, numbness, paresthesias Psychiatric: Reports: as per HPI Endocrine: Reports: as per HPI Hematological/Lymphatic: Reports: as per HPI Allergic/Immunologic: Reports: as per HPI Past Medical History - Past Medical History Attestation: Yes The following information was validated with the patient. Medical history: Reports: atrial fibrillation, COPD, hypertension, myocardial infarction, other Surgical history: Reports: angioplasty/stent, cholecystectomy, tonsilectomy Psychiatric history: Reports: no psych history - Social History Smoking Status: Never smoker Smokeless Tobacco Status: No Alcohol use: Reports: none Drug use: Reports: none Physical Exam - General Limitations: no limitations General appearance: alert, in no apparent distress - Head Head exam: atraumatic, normocephalic, normal inspection - Eye Eye exam: Present: normal appearance. Absent: scleral icterus, conjunctival injection - ENT ENT exam: normal exam, mucous membranes moist - Neck Neck exam: Present: normal inspection, full ROM. Absent: tenderness, meningismus - Chest Chest inspection: Present: normal inspection, symmetric chest wall rise. Absent: tenderness, rash - Respiratory Respiratory exam: Present: normal lung sounds bilaterally. Absent: respiratory distress, wheezes - Cardiovascular Cardiovascular exam: Present: regular rate, irregular rhythm, normal heart sounds - Abdominal Exam Abdominal exam: Present: Non-Tender, distention, hernia. Absent: guarding, rebound, rigidity - Extremities Exam Extremities exam: Present: normal inspection, full ROM - Neurological Exam Neurological exam: Present: alert, oriented X3 - Psychiatric Psychiatric exam: Present: normal affect, normal mood - Skin Skin exam: Present: warm, intact Course Course Narrative: 82-year-old male presenting for substernal chest pain. Patient has history of CAD and previous stent placement. In the room patient still having chest pain. He is alert and oriented 3. Hemodynamically stable. At this time we will perform a chest pain workup including EKG, troponin and chest x-ray. Disposition will be admission pending results. Patient agrees this plan. We will also provide him with a full dose aspirin and nitroglycerin trial. - Reevaluation(s) Reevaluation #1: Since laboratory analysis shows no acute abnormality. After 1 nitroglycerin patient chest pain-free. He remains alert and oriented 3 and hemodynamically stable. At this time will plan to admit the patient for further chest pain workup. Patient agrees this plan. I spoke with the hospitalist [employer] Dr. Richardson who agrees to accept the patient at this time. Vital Signs Temperature 97.5 F L 01/10/18 03:28 Pulse Rate 95 01/10/18 03:28 Respiratory Rate 18 01/10/18 03:28 Blood Pressure 213/131 01/10/18 03:28 O2 Sat by Pulse Oximetry 97 01/10/18 03:28 Temperature 97.5 F L 01/10/18 03:28 Pulse Rate 88 01/10/18 04:12 Respiratory Rate 18 01/10/18 04:06 Blood Pressure 119/65 01/10/18 04:16 O2 Sat by Pulse Oximetry 99 01/10/18 04:06 Oxygen Delivery Oxygen Delivery Room Air Medical Decision Making - Lab Data Result diagrams: 01/10/18 03:57 01/10/18 03:57 Lab Results 01/10/18 01/10/18 01/10/18 Range/Units 03:57 03:57 03:57 WBC 6.8 (4.3-11.1) K/mcL RBC 5.74 H (4.19-5.50) M/mcL Hgb 16.9 (12.9-16.9) g/dL Hct 52.7 H (37.5-50.1) % MCV 91.8 (83.0-100.0) fL MCH 29.4 (28.0-33.3) pg MCHC 32.1 (31.6-35.5) g/dL RDW 12.7 (11.5-14.5) % Plt Count 196 (140-400) K/mcL MPV 12.8 H (9.4-12.4) fL Immature Gran % 0.4 (0-4) % Seg Neutrophils % 67.5 % Lymphocytes % 20.5 % Monocytes % 10.2 % Eosinophils % 1.3 % Basophils % 0.1 % Neutrophils # 4.6 (1.6-8.9) K/mcL Lymphocytes # 1.4 (0.6-4.6) K/mcL Monocytes # 0.7 (0.0-1.3) K/mcL Eosinophils # 0.1 (0.0-0.6) K/mcL Basophils # 0.0 (0.0-0.2) K/mcL PT 30.8 H (9.4-12.1) Seconds INR 2.7 Sodium 140 (136-145) mEq/L Potassium 3.8 (3.5-5.1) mEq/L Chloride 106 (98-107) mEq/L Carbon Dioxide 24 (23-29) mEq/L BUN 18 (8-23) mg/dL Creatinine 1.12 (0.70-1.30) mg/dL Est GFR ( Amer) > 60 (> 60) Est GFR (Non-Af Amer) > 60 (> 60) BUN/Creatinine Ratio 16 (6-26) Glucose 141 H (70-105) mg/dL Calculated Osmolality 294 (280-300) Calcium 9.5 (8.6-10.3) mg/dL Troponin I < 0.03 (< 0.04) ng/mL - EKG Data EKG #1 EKG attestation: Yes I reviewed and interpreted this EKG. EKG results narrative: Atrial fibrillation with PVCs. Right bundle branch block. 98 bpm. QRS 152, QTC 480. Compared to previous EKG completed on 11/07/2017 no significant changes noted Attestation Statement - Attestation Attestation: I, Issa Johnson, examined this patient and my medical decision-making was reviewed with the VICE PRESIDENT CLIENT SERVICES/PA/Advanced Practice Nurse/Resident Physician. I agree with the documented findings, disposition and treatment plan as described except to the extent set forth below. 82-year-old male presents emergency Department with concerns of acute onset c hest pain. Patient has a history of previous [place] and stated that this feels similar. Patient had a significantly elevated blood pressure on arrival however with observation and treatment nitroglycerin his BP improved and was equal in bilateral upper extremities. Patient reported associated nausea and diaphoresis. He did not syncopized. Initial troponin was negative. EKG did not show evidence of STEMI. He will be admitted to the hospital for further care and evaluation. Given aspirin in the emergency department. Pain is now resolved after nitroglycerin
[2018-01-10 04:31] LABS: BUN/Creatinine Ratio 16 (6-26); Blood Urea Nitrogen 18 mg/dL (8-23); Calcium 9.5 mg/dL (8.6-10.3); Carbon Dioxide 24 mEq/L (23-29); Chloride 106 mEq/L (98-107); Glucose 141 mg/dL (70-105); Osmolality,Calculated 294 (280-300); Potassium 3.8 mEq/L (3.5-5.1); Sodium 140 mEq/L (136-145); eGFR For Non-African Americans > 60 (> 60)
[2018-01-10 04:32] LABS: Troponin I < 0.03 ng/mL (< 0.04)
[2018-01-10] MEDS ORDERED: Acetaminophen 325 MG TABLET PO PRN (05:14)
--- NOTE | 2018-01-10 05:42 | Internal Med History&Physical ---
Date of Encounter: 01/10/18 Time of Encounter: 05:34 Internal Medicine - H&P: HPI Chief complaint: chest pain Admitted From: Home Plans for Post Hospital Care: Home History of present illness: Torrey Rangel is an 82-year-old man with a history of coronary artery disease status post LA and one stent, atrial fibrillation on warfarin and recent lower GI bleed upon resumption of warfarin after undergoing colonoscopy with 7 polypectomies done. He presents now to the ER brought in by his because of acute onset chest pain that started a few hours ago while at rest in bed. He describes the pain as crushing and similar to the time when he had a heart attack in the past. He states that he has not been dealing with chest pain of recent and that his more bothersome complaint has been shortness of breath with pedal edema for which reason his furosemide dose was just doubled to 40 mg twice a day in the past month. His EKG did not show any changes from his previous with atrial fibrillation and right bundle branch block noted. His initial labs were negative and his chest pain responded adequately to 1 tablet of nitroglycerin; he was also given loading dose of aspirin. At this time he feels comfortable and much better. He will be admitted for further observation. Past Med Surg Social Fam HX - Past Medical History Medical history: atrial fibrillation, COPD, hypertension, myocardial infarction, other Additional medical history: anemia Psychiatric history: no psych history - Past Surgical History Surgical History: angioplasty/stent, cholecystectomy, tonsilectomy Additional surgical history: prostate surgery - Social History Smoking Status: Never smoker Smokeless Tobacco Status: No Alcohol use: none Drug use: none - Family History Father Living Status: Hx Family Cardiac Disorders: Yes Hx Family Respiratory Disorders: No Hx Family Cancer: No Hx Family GI Disorders: No Hx Family Endocrine Disorder: No Hx Family Neuromuscular Disorders: No Hx Family Neurologic Disorders: No Hx Family HEENT Disorders: No Hx Family Autoimmune Disorders: No Mother Living Status: Hx Family Cardiac Disorders: No Hx Family Respiratory Disorders: No Hx Family Cancer: No Hx Family GI Disorders: No Hx Family Endocrine Disorder: No Hx Family Neuromuscular Disorders: No Hx Family Neurologic Disorders: Yes (cva) Hx Family HEENT Disorders: No Hx Family Autoimmune Disorders: No Brother Living Status: Still Living Hx Family Cardiac Disorders: Yes Hx Family Respiratory Disorders: No Hx Family Cancer: Yes (skin) Hx Family GI Disorders: No Hx Family Endocrine Disorder: No Hx Family Neuromuscular Disorders: No Hx Family Neurologic Disorders: No Hx Family HEENT Disorders: No Hx Family Autoimmune Disorders: No Son Living Status: Still Living Hx Family Cardiac Disorders: Yes Hx Family Respiratory Disorders: No Hx Family Cancer: No Hx Family GI Disorders: No Hx Family Endocrine Disorder: No Hx Family Neuromuscular Disorders: No Hx Family Neurologic Disorders: No Hx Family HEENT Disorders: No Hx Family Autoimmune Disorders: No Internal Medicine - H&P: Meds Ferrous Sulfate 325 mg PO BID 04/23/15 [History] Finasteride [Proscar] 5 mg PO QAM 04/23/15 [History] Furosemide [Lasix] 40 mg PO QAM 04/23/15 [History] Simvastatin [Zocor] 20 mg PO QPM 04/23/15 [History] Ascorbate Calcium [Vitamin C] 500 mg PO DAILY 12/04/15 [History] Multivit-Min/FA/Lycopen/Lutein [Adults 50+ Multivitamin Tablet] 1 tab PO DAILY 12/04/15 [History] Vitamin E 1,000 unit PO DAILY 12/04/15 [History] Losartan [Cozaar] 50 mg PO BID 08/04/16 [History] hydrALAZINE [HydrALAZINE] 50 mg PO Q8HR 08/04/16 [History] Acetaminophen [Tylenol] 650 mg PO Q6HR PRN #0 tablet 08/06/16 [Rx] Omeprazole [PriLOSEC] 20 mg PO BIDAC #60 cap 08/06/16 [Rx] Metoprolol [Lopressor] 50 mg PO BID #60 tablet 12/18/16 [Rx] Acetaminophen [Tylenol] 650 mg PO Q6HR PRN tablet 11/10/17 [Rx] Allergy/AdvReac Type Severity Reaction Status Date / Time macadamia nut oil Allergy Anaphylaxis Verified 12/15/16 06:43 hydrocodone [From Vicodin] AdvReac Itching Verified 12/15/16 06:43 All Systems PM: A 10-system review of systems was performed and is negative for pertinent find ings except as documented above in the HPI. Family history reviewed and found noncontributory. - Constitutional Vitals: Temp Pulse Resp BP Pulse Ox 97.5 F L 73 16 134/77 98 01/10/18 03:28 01/10/18 05:01 01/10/18 05:01 01/10/18 05:01 01/10/18 05:01 Exam: Vitals: Reviewed General: Well-appearing and in no acute distress Skin: Her months supple. HEENT: Moist mucous membranes. No conjunctivae pallor. Neck: No lymphadenopathy. No JVD. No carotid bruits. No palpable thyroid. Chest: Normal thoracic expansion. Normal breath sounds. Clear to auscultation. Heart: Irregularly irregular. Abdomen: Protuberant with surgical incision scar noted on the right upper quadrant, soft and nontender to palpation. Extremities: 2+ pitting edema in the lower extremities with venous stasis trophic changes. Neurological: Awake, alert and oriented to person, place and time. No focal deficits. Psych: Affect appropriate. Internal Med - H&P Results - Labs CBC & Chem 7: 01/10/18 03:57 01/10/18 03:57 Labs: Short CBC 01/10/18 Range/Units 03:57 WBC 6.8 (4.3-11.1) K/mcL Hgb 16.9 (12.9-16.9) g/dL Hct 52.7 H (37.5-50.1) % Plt Count 196 (140-400) K/mcL Neutrophils # 4.6 (1.6-8.9) K/mcL BMP 01/10/18 03:57 Sodium 140 Potassium 3.8 Chloride 106 Carbon Dioxide 24 BUN 18 Creatinine 1.12 Glucose 141 H Calcium 9.5 Cardiac Enzymes 01/10/18 Range/Units 03:57 Troponin I < 0.03 (< 0.04) ng/mL - Impressions ITS Impressions Chest X-Ray 01/10/18 03:33 IMPRESSION: No acute process. Mild cardiomegaly. D/ / Jolly Steel MD / Jolly Steel MD Interpreting Provider: Jolly Steel MD - Assessment and plan (1) Chest pain Current Visit: Yes Status: Acute Assessment and plan: The patient has known CAD and significant risk factors for ACS. The pain intensity was concerning based on description but has subsided with SL NTG. Will monitor on telemetry and trend troponins. May benefit from a stress test at some point which can be done as an outpatient if he remains chest pain free with negative troponins today. Loading dose ASA given. Qualifiers: Chest pain type: unspecified Qualified Code(s): R07.9 - Chest pain, unspecified (2) Chronic atrial fibrillation Current Visit: Yes Status: Acute Assessment and plan: INR therapeutic. Continue warfarin. (3) Lower gastrointestinal hemorrhage Current Visit: Yes Status: Resolved Assessment and plan: No evidence of recurrence since discharge. Hgb stable. Continue iron supplementation. (4) DVT prophylaxis Current Visit: Yes Status: Acute Assessment and plan: On warfarin. - Time Spent With Patient Total time spent is greater than 50% in coordination of care (as documented) at patient's floor/unit and/or counseling patient: Greater than 35 minutes
[2018-01-10] MEDS: hydrALAZINE 25 MG TABLET PO SCH ×2 (06:08→15:19)
[2018-01-10] MEDS ORDERED: Furosemide 40 MG TABLET PO SCH (08:00)
[2018-01-10] MEDS ORDERED: Finasteride 5 MG TABLET PO SCH (09:00)
[2018-01-10] MEDS ORDERED: Regadenoson 0.4 MG/5 ML SYRINGE IVP ONE ×2 (11:39→11:57)
[2018-01-10 15:35] VITALS: BP 176/102
--- NOTE | 2018-01-10 15:36 | Discharge Summary ---
- NOTES TO OUTPATIENT PROVIDER Notes to Outpatient Provider: Follow up with PCP in one week. Follow-up with cooler service supervisor Dr. Marin in one week Orders not resulted at time of discharge: Pending orders 01/10/18 08:44 NM ras perf SPECT multi [NM] Routine 01/10/18 16:00 Troponin I Routine 01/11/18 04:00 INR/PT [Prothrombin Time INR] [COAG] AM 0400 01/12/18 04:00 INR/PT [Prothrombin Time INR] [COAG] AM 0400 01/13/18 04:00 INR/PT [Prothrombin Time INR] [COAG] AM 0400 Date of Encounter: 01/10/18 Time of Encounter: 15:34 - Discharge Diagnosis (1) Chest pain Priority: Primary Status: Acute Qualifiers: Chest pain type: unspecified Qualified Code(s): R07.9 - Chest pain, unspecified (2) Chronic atrial fibrillation Priority: Secondary Status: Acute (3) Lower gastrointestinal hemorrhage Priority: Secondary Status: Resolved (4) CAD (coronary artery disease) Priority: Secondary Status: Chronic Qualifiers: Coronary Disease-Associated Artery/Lesion type: [place] artery [place] vs. transplanted heart: [place] heart Associated angina: without angina Qualified Code(s): I25.10 - Atherosclerotic heart disease of [place] coronary artery without angina pectoris (5) COPD (chronic obstructive pulmonary disease) Priority: Secondary Status: Chronic Qualifiers: COPD type: emphysema Emphysema type: unspecified Qualified Code(s): J43.9 - Emphysema, unspecified (6) Hyperlipidemia Priority: Secondary Status: Chronic Qualifiers: Hyperlipidemia type: unspecified Qualified Code(s): E78.5 - Hyperlipidemia, unspecified (7) Hypertension Priority: Secondary Status: Chronic Qualifiers: Hypertension type: essential hypertension Qualified Code(s): I10 - Essential (primary) hypertension (8) DVT prophylaxis Priority: Secondary Status: Acute Hospital course: Mr. Rangel is a 82 year old male with a history of coronary artery disease status post NH and one stent, atrial fibrillation on warfarin and recent lower GI bleed upon resumption of warfarin after undergoing colonoscopy with 7 polypectomies done he presented to ER brought in by his because of acute onset chest pain that started a few hours ago while at rest in bed. He describes the pain as crushing and similar to the time when he had a heart attack in the past. He states that he has not been dealing with chest pain of recent and that his more bothersome complaint has been shortness of breath with pedal edema for which reason his furosemide dose was just doubled to 40 mg twice a day in the past month. His EKG did not show any changes from his previous with atrial fibrillation and right bundle branch block noted. 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 We checked his serial troponin which were negative. She has patient is high risk for ACS I did nuclear stress test which showed a small sized, mild to moderate intensity, fixed inferior perfusion defect within normal wall motion. Perfusion slightly worse on resting imaging, findings are most consistent with artifact. Perfusion imaging was negative for ischemia. Patient remained a chest pain free throughout this hospitalization. At this point I recommended patient continue taking aspirin, beta pelon and Statin. I started him on Imdur 60 mg po daily. Recommend to f/u with Cardiology Dr. Marin next week. - Time Spent with Patient Total time spent providing and/or coordinating discharge services: - Discharge Medications Prescriptions: Nitroglycerin 0.4 mg SL Q5MIN PRN #20 tab.subl PRN Reason: Chest Pain Aspirin Enteric Coated [Aspirin EC] 81 mg PO DAILY #30 tablet. Isosorbide MONOnitrate (24 HR) [Imdur] 60 mg PO DAILY #30 tab.er.24h Home Medications: Finasteride [Proscar] 5 mg PO QAM 04/23/15 [History] Furosemide [Lasix] 40 mg PO BID 04/23/15 [History] Simvastatin [Zocor] 20 mg PO QPM 04/23/15 [History] Ascorbate Calcium [Vitamin C] 500 mg PO DAILY 12/04/15 [History] Multivit-Min/FA/Lycopen/Lutein [Adults 50+ Multivitamin Tablet] 1 tab PO DAILY 12/04/15 [History] Vitamin E 1,000 unit PO DAILY 12/04/15 [History] Losartan [Cozaar] 50 mg PO BID 08/04/16 [History] hydrALAZINE [HydrALAZINE] 50 mg PO Q8HR 08/04/16 [History] Omeprazole [PriLOSEC] 20 mg PO BIDAC #60 cap 08/06/16 [Rx] Metoprolol [Lopressor] 50 mg PO BID #60 tablet 11/07/17 [Rx] Acetaminophen [Tylenol] 650 mg PO Q6HR PRN tablet 11/10/17 [Rx] Aspirin Enteric Coated [Aspirin EC] 81 mg PO DAILY #30 tablet.dr 01/10/18 [Rx] Isosorbide MONOnitrate (24 HR) [Imdur] 60 mg PO DAILY #30 tab.er.24h 01/10/18 [Rx] Nitroglycerin 0.4 mg SL Q5MIN PRN #20 tab.subl 01/10/18 [Rx] Warfarin [Coumadin] 5 mg PO Q48H 01/10/18 [History] Warfarin [Coumadin] 7.5 mg PO Q48H 01/10/18 [History] Allergies/Adverse Reactions: Allergy/AdvReac Type Severity Reaction Status Date / Time macadamia nut oil Allergy Anaphylaxis Verified 01/10/18 16:09 hydrocodone [From Vicodin] AdvReac Itching Verified 01/10/18 16:09 Date of admission: 01/10/18 04:49 Primary care physician: Twan Luong Jr, MD - Constitutional Vitals: Temp Pulse Resp BP Pulse Ox 97.2 F L 89 18 151/96 97 01/10/18 05:37 01/10/18 05:37 01/10/18 05:37 01/10/18 05:37 01/10/18 05:54 General appearance: Present: A&O X 3 Exam: Gen: Alert, awake, Oriented to time,place and person Chest: Diminished breath sounds B/L, No wheezing, No crackles, No rales Heart: S1S2+ RRR No murmurs Abd: Soft, NT, BS +, No organomegaly Ext: No edema, pulses are palpable, No calf tenderness Neuro : Benign findings Skin: No rash. - Patient Status Disposition: Home, Self-Care Condition: Good Overall status at discharge: patient is back to baseline - Discharge Instructions Follow Up With: Twan Luong Jr, MD [Primary Care Provider] - 01/15/18 11:00 am () Oralia Marin DO [Partnered Physician] - (Cardiology will call you with an appointment. ) - Diet and Activity Activity: increase activity as tolerated
--- NOTE | 2018-01-10 16:44 | Electrocardiograph Report ---
[address] [address] Test Date: 2018-01-10 Pat Name: Torrey Rangel Department: 104 Room: [facility] Gender: M Shareholder: NETTIE : 1935 Requested By: Birgit Bowers Order Number: [id number] Reading MD: Huan Monroy Measurements Intervals [place] Rate: 98 P: [place]: 0 QRS: 97 QRSD: 152 T: -1 QT: 425 QTc: 480 Interpretive Statements ATRIAL FIBRILLATION WITH ABERRANT CONDUCTION OR VENTRICULAR PREMATURE COMPLEXES RIGHT BUNDLE BRANCH BLOCK Electronically Signed On 01-10-2018 16:42:46 EST by Huan Monroy
[2018-01-10] MEDS ORDERED: Warfarin perPT PO PRN (18:00)
[2018-01-10] MEDS ORDERED: *HR* Warfarin 5 MG TABLET PO ONE (18:00)
== END 2018-01-10 17:18 | disposition home or self-care (01) ==
LOC: EMEROOARM 03:21 → 3BNU 03:21 → SUATTDRO 04:49 → 3BNU 05:29
PROVIDERS: ADMIT Internal Medicine; ATTEND Family Medicine

== ENCOUNTER 2019-11-09 19:13 | Observation (INO) ==
[2019-11-09 21:33] LABS: Basophils % 0.2 %; Eosinophils # 0.4 K/mcL (0.0-0.6); Eosinophils % 3.7 %; Hematocrit 41.7 % (37.5-50.1); Hemoglobin 13.3 g/dL (12.9-16.9); Immature Granulocytes % 0.7 % (0-4); Lymphocytes # 0.7 K/mcL (0.6-4.6); Lymphocytes % 6.7 %; Mean Corpuscular HGB Conc 31.9 g/dL (31.6-35.5); Mean Corpuscular Hemoglobin 30.3 pg (28.0-33.3); Mean Platelet Volume 12.2 fL (9.4-12.4); Monocytes # 1.2 K/mcL (0.0-1.3); Monocytes % 11.2 %; Neutrophils # 8.1 K/mcL (1.6-8.9); Platelet Count 183 K/mcL (140-400); Red Blood Count 4.39 M/mcL (4.19-5.50); Red Cell Distribution Width 13.2 % (11.5-14.5); Segmented Neutrophils % 77.5 %; White Blood Count 10.4 K/mcL (4.3-11.1)
[2019-11-09 21:58] LABS: BUN/Creatinine Ratio 20 (6-26); Blood Urea Nitrogen 20 mg/dL (8-23); Calcium 9.5 mg/dL (8.6-10.3); Carbon Dioxide 24 mEq/L (23-29); Chloride 107 mEq/L (98-107); Glucose 115 mg/dL (70-105); Osmolality,Calculated 288 (280-300); Potassium 4.2 mEq/L (3.5-5.1); Sodium 137 mEq/L (136-145); eGFR For African Americans > 60 (> 60); eGFR For Non-African Americans > 60 (> 60)
[2019-11-09 22:08] LABS: Bilirubin,Urine Negative (Negative); Blood,Urine Negative (Negative); Clarity,Urine Clear (Clear); Color,Urine Yellow (Yellow); Glucose,Urine (UA) Normal (Normal); Ketones,Urine Negative (Negative); Leukocyte Esterase,Urine Negative (Negative); Nitrite,Urine Negative (Negative); PH,Urine 5.5 pH Units (5.0-8.0); Protein,Urine Trace mg/dL (Neg-Trace); Specific Gravity,Urine 1.023 (1.010-1.025); Urobilinogen,Urine Normal (Normal)
[2019-11-09] MEDS ORDERED: Isovue-370 500 ML BOTTLE IVP ONE (22:33)
[2019-11-10] MEDS ORDERED: 0.9 % Sodium Chloride 1,000 ML IVC SCH (02:30)
[2019-11-10] MEDS ORDERED: Ondansetron ODT 4 MG TAB.RAPDIS SL PRN (06:53)
[2019-11-10 08:06] LABS: Hemoglobin 12.7 g/dL (12.9-16.9)
[2019-11-10] MEDS ORDERED: *HR* HYDROcodone/Acet 5/325 mg TABLET PO PRN (09:37)
[2019-11-10 10:23] LABS: Basophils % 0.1 %; Eosinophils # 0.4 K/mcL (0.0-0.6); Eosinophils % 5.3 %; Hematocrit 39.7 % (37.5-50.1); Hemoglobin 12.9 g/dL (12.9-16.9); Immature Granulocytes % 0.5 % (0-4); Lymphocytes # 0.7 K/mcL (0.6-4.6); Lymphocytes % 9.1 %; Mean Corpuscular HGB Conc 32.5 g/dL (31.6-35.5); Mean Corpuscular Hemoglobin 31.2 pg (28.0-33.3); Mean Corpuscular Volume 96.1 fL (83.0-100.0); Mean Platelet Volume 12.5 fL (9.4-12.4); Monocytes # 0.8 K/mcL (0.0-1.3); Neutrophils # 5.6 K/mcL (1.6-8.9); Platelet Count 162 K/mcL (140-400); Red Blood Count 4.13 M/mcL (4.19-5.50); Red Cell Distribution Width 13.1 % (11.5-14.5); White Blood Count 7.6 K/mcL (4.3-11.1)
[2019-11-10 10:30] LABS: INR 1.2; Prothrombin Time 13.7 Seconds (9.4-12.1)
[2019-11-10 10:44] LABS: BUN/Creatinine Ratio 20 (6-26); Blood Urea Nitrogen 18 mg/dL (8-23); Calcium 9.6 mg/dL (8.6-10.3); Carbon Dioxide 27 mEq/L (23-29); Chloride 107 mEq/L (98-107); Glucose 106 mg/dL (70-105); Osmolality,Calculated 292 (280-300); Potassium 3.7 mEq/L (3.5-5.1); Sodium 140 mEq/L (136-145); eGFR For African Americans > 60 (> 60); eGFR For Non-African Americans > 60 (> 60)
[2019-11-10] MEDS: Finasteride 5 MG TABLET PO SCH (12:13)
[2019-11-10] MEDS: Furosemide 40 MG TABLET PO SCH ×2 (12:14→21:59)
[2019-11-10] MEDS: polyethylene glycoL 3350 17 GM POWD.PACK PO SCH (12:14)
[2019-11-10] MEDS: Isosorbide MONOnitrate (24 HR) 60 MG TAB.ER.24H PO SCH (12:14)
[2019-11-10] MEDS: Ondansetron ODT 4 MG TAB.RAPDIS SL SCH ×2 (12:21→18:14)
[2019-11-10 13:28] LABS: Hematocrit 40.3 % (37.5-50.1)
[2019-11-10] MEDS: Acetaminophen IV 1,000 MG/100 ML INFUS..BTL IVPB SCH ×2 (14:29→18:14)
[2019-11-10] MEDS: Sennosides/Docusate Sodium TABLET PO SCH (21:59)
[2019-11-11] MEDS: Acetaminophen IV 1,000 MG/100 ML INFUS..BTL IVPB SCH ×4 (00:09→16:49)
[2019-11-11] MEDS: Ondansetron ODT 4 MG TAB.RAPDIS SL SCH ×4 (00:09→16:49)
[2019-11-11 03:29] LABS: Basophils % 0.2 %; Eosinophils # 0.3 K/mcL (0.0-0.6); Eosinophils % 3.7 %; Hematocrit 41.5 % (37.5-50.1); Hemoglobin 12.9 g/dL (12.9-16.9); Immature Granulocytes % 0.4 % (0-4); Lymphocytes # 0.8 K/mcL (0.6-4.6); Lymphocytes % 8.3 %; Mean Corpuscular HGB Conc 31.1 g/dL (31.6-35.5); Mean Corpuscular Hemoglobin 29.7 pg (28.0-33.3); Mean Corpuscular Volume 95.4 fL (83.0-100.0); Mean Platelet Volume 12.7 fL (9.4-12.4); Monocytes # 1.1 K/mcL (0.0-1.3); Monocytes % 11.7 %; Platelet Count 187 K/mcL (140-400); Red Blood Count 4.35 M/mcL (4.19-5.50); Segmented Neutrophils % 75.7 %; White Blood Count 9.3 K/mcL (4.3-11.1)
[2019-11-11 03:50] LABS: BUN/Creatinine Ratio 18 (6-26); Blood Urea Nitrogen 17 mg/dL (8-23); Calcium 9.2 mg/dL (8.6-10.3); Carbon Dioxide 26 mEq/L (23-29); Chloride 105 mEq/L (98-107); Glucose 110 mg/dL (70-105); Osmolality,Calculated 292 (280-300); Phosphorous 2.9 mg/dL (2.7-4.5); Sodium 140 mEq/L (136-145); eGFR For African Americans > 60 (> 60); eGFR For Non-African Americans > 60 (> 60)
[2019-11-11] MEDS: Sennosides/Docusate Sodium TABLET PO SCH ×2 (10:27→20:43)
[2019-11-11] MEDS: polyethylene glycoL 3350 17 GM POWD.PACK PO SCH (10:27)
[2019-11-11] MEDS: Valsartan 80 MG TABLET PO SCH (10:27)
[2019-11-11] MEDS: Furosemide 40 MG TABLET PO SCH ×2 (10:28→20:43)
[2019-11-11] MEDS: Finasteride 5 MG TABLET PO SCH (10:29)
[2019-11-11] MEDS: Isosorbide MONOnitrate (24 HR) 60 MG TAB.ER.24H PO SCH (10:29)
[2019-11-11] MEDS ORDERED: Bisacodyl 10 MG RECTAL SUPPOSITORY RC ONE (10:56)
[2019-11-11] MEDS: hydrALAZINE 25 MG TABLET PO SCH (16:02)
[2019-11-12] MEDS: hydrALAZINE 25 MG TABLET PO SCH ×2 (00:40→08:04)
[2019-11-12] MEDS: Ondansetron ODT 4 MG TAB.RAPDIS SL SCH ×3 (00:40→12:02)
[2019-11-12] MEDS: Acetaminophen IV 1,000 MG/100 ML INFUS..BTL IVPB SCH ×3 (00:41→12:00)
[2019-11-12 06:33] LABS: Basophils % 0.2 %; Eosinophils # 0.3 K/mcL (0.0-0.6); Hematocrit 42.1 % (37.5-50.1); Hemoglobin 13.4 g/dL (12.9-16.9); Immature Granulocytes % 0.6 % (0-4); Lymphocytes # 0.7 K/mcL (0.6-4.6); Lymphocytes % 6.6 %; Mean Corpuscular HGB Conc 31.8 g/dL (31.6-35.5); Mean Corpuscular Hemoglobin 30.8 pg (28.0-33.3); Mean Corpuscular Volume 96.8 fL (83.0-100.0); Mean Platelet Volume 12.5 fL (9.4-12.4); Monocytes # 1.4 K/mcL (0.0-1.3); Monocytes % 13.4 %; Neutrophils # 7.8 K/mcL (1.6-8.9); Platelet Count 171 K/mcL (140-400); Red Blood Count 4.35 M/mcL (4.19-5.50); Red Cell Distribution Width 13.1 % (11.5-14.5); Segmented Neutrophils % 76.2 %; White Blood Count 10.2 K/mcL (4.3-11.1)
[2019-11-12] MEDS: Valsartan 80 MG TABLET PO SCH (08:03)
[2019-11-12] MEDS: Isosorbide MONOnitrate (24 HR) 60 MG TAB.ER.24H PO SCH (08:03)
[2019-11-12] MEDS: Finasteride 5 MG TABLET PO SCH (08:04)
[2019-11-12] MEDS: polyethylene glycoL 3350 17 GM POWD.PACK PO SCH (08:04)
[2019-11-12] MEDS: Furosemide 40 MG TABLET PO SCH (08:04)
[2019-11-12] MEDS: Sennosides/Docusate Sodium TABLET PO SCH (08:04)
[2019-11-12] MEDS ORDERED: FLU Vac QV 20-21 (6Month+)/PF 0.5 ML SYRINGE IM ONE (11:34)
[2019-11-12 11:48] VITALS: BP 123/76
== END 2019-11-12 15:01 | disposition home or self-care (01) ==
LOC: 2ANU 19:13 → EMEROOARM 19:13 → 2ANU 11-10 03:15
PROVIDERS: ADMIT Surgery; ATTEND Surgery